=== PATIENT | female | born 1965 | race Caucasian/White ===

== ENCOUNTER 2024-07-16 16:49 | Emergency (ER) | payer MEDICAID, SELFPAY ==
[2024-07-16 16:50] VITALS: BMI 25.2
--- NOTE | 2024-07-16 16:54 | EKG_ITS ---
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
--- NOTE | 2024-07-16 17:11 | XR_ITS ---
Examination: CT brain head without contrast. 2-D sagittal coronal reconstructions Date and time of exam:July 16, 2024 1726 hrs. Indications: Patient fell today with injury to the head, head pain CTDI: vol (mGy):44.9 DLP: (mGycm):882 Technique: Multiple CT axial sections of the brain have been obtained, 5 mm slice thickness. Contrast has not been administered. 2-D sagittal, coronal reconstructions have been obtained Low dose protocols were performed. One or more of the following dose reduction techniques were used; automated exposure control, adjustment of the mA and/or KV according to patient size, use of iterative reconstruction technique. Findings: No significant ventricular enlargement. Intra-axial or extra-axial hemorrhage density is not seen. No mass effect or midline shift Basal cisterns are not remarkable. Fourth ventricle is midline. Cranial vault intact. Impression: Negative for acute hemorrhage, mass effect or midline shift
--- NOTE | 2024-07-16 17:11 | XR_ITS ---
Examination: CT cervical spine without contrast 2-D sagittal reconstructions 2-D coronal reconstructions 3-D reconstructions. Exam date and time:July 16, 2024 1726 hrs. Indications: Patient fell today with injury to the neck, neck pain CTDI:vol (mGy) 7.67 DLP: (mGycm) 164 Technique: Multiple 2 mm axial sections of the cervical spine have been obtained. The coronal and sagittal reconstructions have been obtained. 3-D reconstructions have been obtained. Low dose protocols were performed. One or more of the following dose reduction techniques were used; automated exposure control, adjustment of the mA and/or KV according to patient size, use of iterative reconstruction technique. Findings: Axial sections demonstrate intact base of the skull. C1 exhibit satisfactory relationship to the odontoid. No acute cervical vertebral body fracture seen. Alignment posterior spinous processes satisfactory. Impression: No acute cervical fracture.
--- NOTE | 2024-07-16 17:12 | PD.EDRME ---
Rapid Medical Screening Exam RME Arrival date/time: 07/16/24 16:49 58-year-old female who reports she has long COVID with generalized weakness complaints of head and neck pain status post fall today patient reports that she has had a total of 3 falls today Chief Complaint: Fall
[2024-07-16 17:59] LABS: Basophils % (Auto) 0 % (0-2.5); Eosinophils % (Auto) 0 % (0-10); Hematocrit 38.7 % (36.0-46.0); Hemoglobin 13.1 g/dL (12.0-16.0); Immature Granulocytes % (Auto) 1 % (0-0); Immature Granulocytes Auto 0.04 Thou/mm3 (0.00-0.00); Lymphocytes # (Auto) 2.4 Thou/mm3 (1.0-4.8); Lymphocytes % (Auto) 35 % (10-50); Mean Corpuscular HGB Conc 33.9 g/dl (31.0-37.0); Mean Corpuscular Hemoglobin 34.3 pg (25.0-35.0); Mean Corpuscular Volume 101 fL (80-100); Monocytes # (Auto) 0.5 Thou/mm3 (0.0-0.8); Monocytes % (Auto) 7 % (0-12); Neutrophils # (Auto) 3.9 Thou/mm3 (1.8-7.7); Neutrophils % (Auto) 57 % (37-80); Nucleated Red Blood Cell # 0.02 Thou/mm3 (0.00-0.00); Nucleated Red Blood Cell % 0 /100 WBC (0); Platelet Count 293 Thou/mm3 (140-440); RDW Standard Deviation 54.4 fL (36.4-46.3); Red Blood Count 3.82 Miln/mm3 (4.00-5.20); White Blood Count 6.9 Thou/mm3 (3.6-11.0)
[2024-07-16 18:29] LABS: Alanine Aminotransferase 34 U/L (10-49); Albumin, Serum 3.8 gm/dL (3.4-4.8); Albumin/Globulin Ratio 1.3 (1.2-2.2); Alkaline Phosphatase 236 U/L (46-116); Anion Gap 12 (7-16); Aspartate Amino Transferase 172 U/L (0-34); BUN/Creatinine Ratio 9 Ratio (12-20); Bilirubin,Total 0.5 mg/dL (0.3-1.2); Blood Urea Nitrogen 6 mg/dL (9-23); Calcium 9.1 mg/dL (8.3-10.6); Calcium (Corrected) 9.3 mg/dL (8.5-10.1); Carbon Dioxide 24.3 mMol/L (20.0-31.0); Chloride 102 mMol/L (98-107); Creatinine (Component) 0.7 mg/dL (0.6-1.3); Estimated Creatinine Clearance 74.3 mL/min (>60); Glucose 204 mg/dL (74-106); Osmolality,Calculated 279 (275-295); Potassium 3.2 mMol/L (3.4-5.1); Sodium 138 mMol/L (136-145); Total Protein 6.8 gm/dL (5.7-8.2); Troponin I < 0.020 ng/mL (0.0-0.045); eGFR > 60 See Note
[2024-07-16 20:20] VITALS: BP 102/65; PULSE 87; RESP 20; TEMP 36.8; O2SAT 97
--- NOTE | 2024-07-16 20:20 | PC.NURSE ---
PT CALLED BACK TO A ROOM AND NO ANSWER
--- NOTE | 2024-07-16 20:51 | PC.NURSE ---
PT CALLED BACK TO A ROOM AND NO ANSWER
--- NOTE | 2024-07-16 20:58 | PC.NURSE ---
PT CALLED BACK TO A ROOM AND NO ANSWER
== END 2024-07-16 23:52 | disposition left against medical advice (07) ==
LOC: SERX 17:50
PROVIDERS: Nurse Practitioner Primary Care; Emergency Provider Emergency Medicine; PCP Family Medicine
DX: R51.9 Headache, unspecified (principal); M54.2 Cervicalgia; R00.0 Tachycardia, unspecified; S09.90XA Unspecified injury of head, initial encounter; W19.XXXA Unspecified fall, initial encounter; Z53.29 Procedure and treatment not carried out because of patient's decision for other reasons
CPT/HCPCS: 36415; 70450; 72125; 80053; 84484; 85025; 93005; 99281

== ENCOUNTER 2024-09-30 13:33 | Inpatient (IN) | payer MEDICAID, SELFPAY ==
[2024-09-30] VITALS (10 sets, daily range): BP systolic 125–160; BP diastolic 77–109; PULSE 92–119; RESP 16–26; TEMP 36.6–36.9; O2SAT 93–98; BMI 24.7; BMI 26.2
--- NOTE | 2024-09-30 14:14 | XR_ITS ---
Examination: CT brain head without contrast. 2-D sagittal coronal reconstructions Date and time of exam:September 30, 2024 1451 hours INDICATIONS: Ground-level fall today after syncopal episode CTDI: vol (mGy):45.6 DLP: (mGycm):880 Technique: Multiple CT axial sections of the brain have been obtained, 5 mm slice thickness. Contrast has not been administered. 2-D sagittal, coronal reconstructions have been obtained Low dose protocols were performed. One or more of the following dose reduction techniques were used; automated exposure control, adjustment of the mA and/or KV according to patient size, use of iterative reconstruction technique. Findings: No significant ventricular enlargement. Intra-axial or extra-axial hemorrhage density is not seen. No mass effect or midline shift Basal cisterns are not remarkable. Fourth ventricle is midline. Cranial vault intact. Impression: Negative for acute hemorrhage, mass effect or midline shift
--- NOTE | 2024-09-30 14:15 | EKG_ITS ---
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1965 Requested By: Kevin Kimball Order Number: [id number] Reading MD: Kevin Kimball Measurements Intervals [place] Rate: 89 P: 62 RI: 144 QRS: 12 QRSD: 90 T: 220 QT: 395 QTc: 481 Interpretive Statements SINUS RHYTHM INDETERMINATE AXIS MODERATE T-WAVE ABNORMALITY, CONSIDER ANTEROLATERAL ISCHEMIA [-0.1+ mV T-WAVE IN V3-V6] MODERATE T-WAVE ABNORMALITY, CONSIDER INFERIOR ISCHEMIA [-0.1+ mV T-WAVE IN II/aVF] Compared to ECG 07/16/2024 17:13:21 Indeterminate axis now present T-wave abnormality now present Possible ischemia now present Sinus tachycardia no longer present Atrial abnormality no longer present Right ventricular hypertrophy no longer present /store/S0/[id number]/ecg/[id number].pdf
--- NOTE | 2024-09-30 14:40 | EDNOTE_ITS ---
ED General RME/HPI General Chief complaint: Syncope / Near Syncope Stated complaint: SYNCOPE Time Seen by Provider: 09/30/24 13:37 Arrival date/time: 09/30/24 13:33 RME / HPI RME / HPI narrative: Patient is a 59 years old female with no past medical history presented to the ED due to ground level fall and generalized weakness. She reports that she first developed weakness in her legs approximately 5 weeks ago. 4 weeks ago her leg weakness worsened and she started feeling weakness in her arms too. She also reports decreased sensation over BLE. As a result of her weakness she developed several ground level falls, including today when she fell and injured her face. Upon further questions she reported she suddenly blacks out and remember only moment when she is already on the floor. She reports ongoing diarrhea which started approximately at the same time. Upon further questions she says it is 1 bowel movement a day but she cannot sense it and sometimes has stool incontinence, prompting her to use adult diapers. She denies chest pain, SOB, fever, chills, nausea, vomiting, dizziness, URI or GI infections recently or around the time when her symptoms occurred. She also reports she eats 2 times a week for the last several years because she lost interest to food and mostly drinks liquids. She is active tobacco smoker, drinks alcohol socially, 1-2 times a week 1 drink each time. She uses THC candies every 2-3 months. Denies other substance use. Patient also reported multiple abdominal surgeries for cholecystectomy and due to complications most of her stomach was removed and nerve stimulator was placed to her spine 10 years ago. Related Data Allergies Allergy/AdvReac Type Severity Reaction Status Date / Time Sulfa (Sulfonamide Allergy Verified 07/16/24 16:53 Antibiotics) Review of Systems Review of Systems Systems Reviewed: All systems reviewed, normal except as documented ED Exam Narrative Physical exam: Gen: Well-developed and well-nourished elderly female. HEENT: NCAT, PERRLA, EOMI, MMM, anicteric conjunctivae. CVS: normal S1 and S2. RRR. No M/R/G. Resp: CTA B/L. No rhonchi, rales, crackles or wheezing. Abd: soft, tender lower abdomen, non-distended. BS+ in all 4 quadrants. MSK: Good ROM in BUE & BLE. No edema or rash. Neuro: CN II-XII grossly intact. Strength 5/5 in BUE & BLE. Alert and oriented x3. Psych: appropriate mood and affect. Course Quality Measures none Orders Category Date Time Status COVID-19 Screening Questionnaire NOW Care 09/30/24 16:[address] Screening NOW Care 09/30/24 16:12 Active Decision to Admit X1 Care 09/30/24 16:42 Completed EKG (ED ONLY) *Do not use* NOW Care 09/30/24 14:15 Completed IV [Insert IV] NOW Care 09/30/24 14:14 Active Consult to Neurology / Tele-Neurology Stat Cons 09/30/24 17:[address] abdomen pelvis w con Stat Exams 09/30/24 16:[address] cervical spine wo con Stat Exams 09/30/24 16:[address] head/brain wo con Stat Exams 09/30/24 14:[address] lumbar spine wo con Stat Exams 09/30/24 16:[address] thoracic spine wo con Stat Exams 09/30/24 16:56 Completed EKG (ED Only) Stat Exams 09/30/24 14:15 Draft CBC Stat Lab 09/30/24 14:39 Completed CMP [Comprehensive Metabolic Panel] Stat Lab 09/30/24 14:39 Completed Drug Screen,Urine Stat Lab 09/30/24 16:21 Ordered Folate Stat Lab 09/30/24 14:39 Completed Magnesium Stat Lab 09/30/24 14:39 Completed Phosphorous Stat Lab 09/30/24 14:39 Completed Troponin I Stat Lab 09/30/24 14:39 Completed Vitamin B12 Stat Lab 09/30/24 14:39 Completed Aspirin Med 09/30/24 15:25 Discontinued 325 mg PO X1 ONE Potassium Chloride [K-Dur] Med 09/30/24 15:28 Discontinued 40 meq PO X1 ONE Vital Signs Vital signs: Vital Signs Temperature 98.3 F 09/30/24 13:47 Pulse Rate 92 09/30/24 13:47 Respiratory Rate 16 09/30/24 13:47 Blood Pressure 127/84 09/30/24 13:47 Pulse Oximetry (%) 97 09/30/24 13:47 Oxygen Delivery Method Room Air 09/30/24 13:47 [facility] Patient data External records reviewed:: None Clinical information provided by:: patient Social determinants that could affect healthcare access:: none Patient has the following chronic illnesses:: none How is presenting disease/condition affected by chronic disease/condition?: no chronic disease Evaluation data The following diagnostics were reviewed and interpreted by me:: lab results, radiology exam(s) and EKG tracing(s) Lab and/or radiology exams considered but not ordered:: Brain MRI Interpretation Summary: EKG showed ST segment changes, suspicious for ischemia Medications Medications considered but not ordered:: none Medication administrations:: Medication Administration History Discontinued Medications Aspirin (Aspirin 325 Mg Tablet) 325 mg PO X1 ONE Stop: 09/30/24 15:26 Last Admin: 09/30/24 17:30 Dose: 325 mg Documented By: CARLOTTA Potassium Chloride (Potassium Chloride 20 Meq Tabcr) 40 meq PO X1 ONE Stop: 09/30/24 15:29 Last Admin: 09/30/24 16:45 Dose: Not Given Documented By: CARLOTTA Non-Admin Reason: Cancelled by Provider Aspirin 325 mg x1. Consultations Consultation(s) initiated? (list below): Yes Consultation #1 (Physician, Specialty, Details): Dr. Kaufman, neurology, syncope work up. Diagnosis Differential Diagnosis ED Complaint MDM: Syncope, ACS, seizures Most likely diagnosis given after review of the tests above:: Syncope Admission Indicated Admission indicated?: indicated Explain why admission is indicated or not indicated:: Needs extensive work up for multiple syncope episodes. Admission Request Was there a request for admission?: Yes Admission Attestation Admission request attestation: Discussed case with Dr. Nieves from Hospitalist service regarding admission. Discussed patients ED course, exam findings, labs, and radiology results. The Hospitalist agrees to accept the patient for admission. Disposition Plan Disposition Plan: Admit Medical Decision Making MDM Narrative MDM Narrative: Patient is a poor historian. She reports ascending weakness, multiple syncope episodes, poor PO intake, abdominal pain, diarrhea. Her EKG showed ST segment changes suggestive of possible ischemia. Neurology was consulted and recommended admission due to complicated medical history and for EEG. Patient sustained multiple ground level falls and it is unsafe to discharge her without proper work up. Differential Diagnosis Differential Diagnosis: Syncope, ACS, seizures Lab Data 09/30/24 14:39 09/30/24 14:39 Labs: Lab Results 09/30/24 Range/Units 14:39 WBC 6.2 (3.6-11.0) Thou/mm3 RBC 3.66 L (4.00-5.20) Miln/mm3 Hgb 12.5 (12.0-16.0) g/dL Hct 37.0 (36.0-46.0) % MCV 101 H (80-100) fL MCH 34.2 (25.0-35.0) pg MCHC 33.8 (31.0-37.0) g/dl RDW Std Deviation 62.2 H (36.4-46.3) fL Plt Count 214 (140-440) Thou/mm3 Neut % (Auto) 55 (37-80) % Lymph % (Auto) 38 (10-50) % Rogers % (Auto) 6 (0-12) % Eos % (Auto) 0 (0-10) % Baso % (Auto) 1 (0-2.5) % Neut # (Auto) 3.4 (1.8-7.7) Thou/mm3 Lymph # (Auto) 2.3 (1.0-4.8) Thou/mm3 Rogers # (Auto) 0.4 (0.0-0.8) Thou/mm3 Eos # (Auto) 0.0 (0.0-0.5) Thou/mm3 Baso # (Auto) 0.0 (0.0-0.2) Thou/mm3 Immature Gran # (Auto) 0.02 H (0.00-0.00) Thou/mm3 Absolute Nucleated RBC 0.00 (0.00-0.00) Thou/mm3 Immature Gran % 0 (0-0) % Nucleated RBC % 0 (0) /100 WBC Sodium 142 (136-145) mMol/L Potassium 3.9 (3.4-5.1) mMol/L Chloride 106 (98-107) mMol/L Carbon Dioxide 25.0 (20.0-31.0) mMol/L Anion Gap 11 (7-16) BUN 6 L (9-23) mg/dL Creatinine 0.6 (0.6-1.3) mg/dL Estim Creat Clear Calc 84.8 (>60) mL/min eGFR > 60 (60 - ) See Note BUN/Creatinine Ratio 10 L (12-20) Ratio Glucose 137 H (74-106) mg/dL Calculated Osmolality 282 (275-295) Calcium 9.1 (8.3-10.6) mg/dL Corrected Calcium 9.4 (8.5-10.1) mg/dL Phosphorus 3.4 (2.4-5.1) mg/dL Magnesium 1.6 (1.6-2.6) mg/dL Total Bilirubin 0.6 (0.3-1.2) mg/dL AST 204 H (0-34) U/L ALT 21 (10-49) U/L Alkaline Phosphatase 171 H (46-116) U/L Troponin I < 0.020 (0.0-0.045) ng/mL Total Protein 6.3 (5.7-8.2) gm/dL Albumin 3.6 (3.4-4.8) gm/dL Globulin 2.7 (2.3-3.5) gm/dL Albumin/Globulin Ratio 1.3 (1.2-2.2) Vitamin B12 354 (211-911) pg/mL Folate 2.57 L (>5.38) ng/mL Discharge Plan Plan Patient Disposition: Admit Acute Care w/in Hospital Problem List Clinical Impression: Syncope Patient/Caregiver Discharge Instructions Print Language: Occitan Stand Alone Forms: [facility]ella Award Info., Patient Portal Info Letter
[2024-09-30 15:06] LABS: Basophils % (Auto) 1 % (0-2.5); Eosinophils % (Auto) 0 % (0-10); Hemoglobin 12.5 g/dL (12.0-16.0); Immature Granulocytes % (Auto) 0 % (0-0); Immature Granulocytes Auto 0.02 Thou/mm3 (0.00-0.00); Lymphocytes # (Auto) 2.3 Thou/mm3 (1.0-4.8); Lymphocytes % (Auto) 38 % (10-50); Mean Corpuscular HGB Conc 33.8 g/dl (31.0-37.0); Mean Corpuscular Hemoglobin 34.2 pg (25.0-35.0); Mean Corpuscular Volume 101 fL (80-100); Monocytes # (Auto) 0.4 Thou/mm3 (0.0-0.8); Monocytes % (Auto) 6 % (0-12); Neutrophils # (Auto) 3.4 Thou/mm3 (1.8-7.7); Neutrophils % (Auto) 55 % (37-80); Nucleated Red Blood Cell % 0 /100 WBC (0); Platelet Count 214 Thou/mm3 (140-440); RDW Standard Deviation 62.2 fL (36.4-46.3); Red Blood Count 3.66 Miln/mm3 (4.00-5.20); White Blood Count 6.2 Thou/mm3 (3.6-11.0)
[2024-09-30 15:30] LABS: Alanine Aminotransferase 21 U/L (10-49); Albumin, Serum 3.6 gm/dL (3.4-4.8); Albumin/Globulin Ratio 1.3 (1.2-2.2); Alkaline Phosphatase 171 U/L (46-116); Anion Gap 11 (7-16); Aspartate Amino Transferase 204 U/L (0-34); BUN/Creatinine Ratio 10 Ratio (12-20); Bilirubin,Total 0.6 mg/dL (0.3-1.2); Blood Urea Nitrogen 6 mg/dL (9-23); Calcium 9.1 mg/dL (8.3-10.6); Calcium (Corrected) 9.4 mg/dL (8.5-10.1); Chloride 106 mMol/L (98-107); Creatinine (Component) 0.6 mg/dL (0.6-1.3); Estimated Creatinine Clearance 84.8 mL/min (>60); Globulin 2.7 gm/dL (2.3-3.5); Glucose 137 mg/dL (74-106); Magnesium 1.6 mg/dL (1.6-2.6); Osmolality,Calculated 282 (275-295); Phosphorous 3.4 mg/dL (2.4-5.1); Potassium 3.9 mMol/L (3.4-5.1); Sodium 142 mMol/L (136-145); Total Protein 6.3 gm/dL (5.7-8.2); Troponin I < 0.020 ng/mL (0.0-0.045); eGFR > 60 See Note
--- NOTE | 2024-09-30 16:12 | XR_ITS ---
Examination: CT abdomen with intravenous contrast CT pelvis with intravenous contrast 2-D coronal reconstructions 2-D sagittal reconstructions Date and time of exam:September 30, 2024 1639 hours INDICATIONS: Generalized abdominal pain and diarrhea today. CTDI: vol (mGy) 8.01 DLP: (mGycm) 409 Technique: Multiple axial sections of the abdomen and pelvis have been obtained. 64 slice high-resolution scanner used. 3 mm axial sections have been obtained, post intravenous injection 60 cc [id number] 2-D sagittal, coronal reconstructions obtained. Low dose protocols were performed. One or more of the following dose reduction techniques were used; automated exposure control, adjustment of the mA and/or KV according to patient size, use of iterative reconstruction technique. Findings: Severe diffuse fatty infiltration throughout the liver Left lobe hyperdense 29 mm liver lesion Spleen not enlarged Absent gallbladder No pancreatic mass or extrahepatic biliary tract dilatation Aorta normal size Anterior abdominal wall hernia mesh No hydronephrosis Aorta normal size, no free blood in the abdomen or pelvis No bowel obstruction Colonic diverticulosis, no diverticulitis No pelvic mass Urinary bladder intact Moderate osteopenia IMPRESSION: 29 mm left lobe liver lesion, recommend elective MRI liver follow-up pre and postcontrast to assess this lesion
--- NOTE | 2024-09-30 16:39 | XR_ITS ---
Examination: CT cervical spine without contrast 2-D sagittal reconstructions 2-D coronal reconstructions 3-D reconstructions. Exam date and time:September 30, 2024 1645 hours INDICATIONS: Ground-level fall today with injury of the neck, neck pain CTDI:vol (mGy) 13.2 DLP: (mGycm) 217 Technique: Multiple 2 mm axial sections of the cervical spine have been obtained. The coronal and sagittal reconstructions have been obtained. 3-D reconstructions have been obtained. Low dose protocols were performed. One or more of the following dose reduction techniques were used; automated exposure control, adjustment of the mA and/or KV according to patient size, use of iterative reconstruction technique. Findings: Axial sections demonstrate intact base of the skull. Advanced disc narrowing C5-C6 Acute sphenoid sinusitis C1 exhibit satisfactory relationship to the odontoid. No acute cervical vertebral body fracture seen. Alignment posterior spinous processes satisfactory. Impression: No acute cervical fracture.
--- NOTE | 2024-09-30 16:56 | XR_ITS ---
Examination: Thoracic spine 3 views TECHNIQUE: AP lateral coned lateral upper dorsal spine 3 views Exam date and time: September 30, 2024 1722 hours INDICATIONS: Patient fell today with injury to the upper back, upper back pain FINDINGS: Moderate osteopenia Posterior epidural pain lead No thoracic vertebral body compression fracture Mild to moderate diffuse thoracic disc narrowing Mild thoracic spondylosis Thoracic pedicles and laminae appear intact No pneumothorax or hemothorax Soft tissue settings demonstrate no focal thoracic disc protrusion IMPRESSION: No thoracic fracture
--- NOTE | 2024-09-30 16:56 | XR_ITS ---
Examination: CT lumbar spine, without contrast. 2-D sagittal reconstructions. 2-D coronal reconstructions. 3-D reconstructions. Date and time of exam:September 30, 2024 1722 hours INDICATIONS: Patient fell today with injury to the lower back, lower back pain CTDI: vol (mGy):17.3 DLP: (mGycm):524 Technique: Multiple 1.25 mm axial sections of the lumbar spine without intravenous contrast have been obtained. 2-D sagittal and coronal reconstructions have been obtained. 3-D reconstructions have been obtained. Low dose protocols were performed. One or more of the following dose reduction techniques were used; automated exposure control, adjustment of the mA and/or KV according to patient size, use of iterative reconstruction technique. Findings: Prominent osteopenia Moderate disc narrowing L5-S1 No lumbar vertebral body compression fracture Epidural probable pain lead entering posteriorly L1-L2 level Lumbar pedicles, laminae, transverse and posterior spinous processes intact L5-S1 4 mm central lumbar disc bulge displacing both S1 nerve roots L4-L5 2 mm central lumbar disc bulge L3-L4 no disc protrusion L2-L3 no disc protrusion L1-2 no disc protrusion IMPRESSION: No acute lumbar fracture Moderate disc narrowing L5-S1 L5-S1 4 mm central lumbar disc bulge displacing right and left S1 nerve roots
--- NOTE | 2024-09-30 16:58 | PD.RESEVENT ---
Documentation for date of: 09/30/24 Event Note Event Note: Received a call from ED regarding admission. Patient with no PMH presents after a syncopal episode/GLF, with generalized weakness that started in her legs and has ascended to include bilateral upper extremities. Weakness started approximately 4 to 5 weeks ago. Symptoms are associated with bowel incontinence. Discussed with the ED to obtain CT lumbar spine to rule out spinal cord pathology as cause of symptoms, and if CT is negative, we will gladly accept admission. Patient care discussed with my attending Dr. Elizondo. Parker Nieves MD PGY-3
[2024-09-30] MEDS: Aspirin 325 MG TABLET PO (17:30)
[2024-09-30 17:36] LABS: Folate 2.57 ng/mL (>5.38); Vitamin B12 354 pg/mL (211-911)
[2024-09-30 18:48] LABS: Amphetamine/Methamp Scrn,U Negative (Negative); Barbiturate Screen,Urine Negative (Negative); Benzodiazepines Screen,Urine Negative (Negative); Benzoylecgonine Screen, Ur Negative (Negative); Fentanyl Screen,Urine Negative (Negative); Opiate Screen,Urine Negative (Negative); THC Screen,Urine Negative (Negative)
--- NOTE | 2024-09-30 21:18 | XR_ITS ---
Examination: AP lateral chest 2 views Technique: Sitting AP lateral chest 2 views Exam date and time: September 30, 2024 10:17 PM Indications: Clinical diagnosis thymoma Findings: Normal heart size No mediastinal lymphadenopathy. No pneumonia or pulmonary edema Moderate elevation right hemidiaphragm The osseous structures are intact Impression: No active disease
--- NOTE | 2024-09-30 21:33 | PD.RESHP ---
Documentation for date of: 09/30/24 HPI History of Present Illness Chief complaint: Generalized weakness and recurrent fall for the past 3 months History of present illness: HPI: A 59-year-old female patient with with past medical history reportedly of chronic back pain status post pain device implant, complicated cholecystectomy followed by ex laparotomy and bowel resection, presented to the emergency department after she developed generalized weakness and recurrent falls for the past 3 months. Patient reported that in May 2024 she had a COVID infection in which she recovered completely however by the end of June and the beginning of July she started to experience weakness started in her feet that led to her stumbling and had multiple episodes of falls. She reported that the symptoms continue to worsen over time and experienced 7 episodes of falls. Last 1 was yesterday when she fell on her face which led to bleeding and contusion. On further questioning she reported also associated dizziness in which in which she went to visit her PCP who prescribed her meclizine however it did not help. She patient also reported that she has multiple episodes of diarrhea and loss of bowel control but no loss of urine control. Her symptom associated with lower extremity tingling and numbness usually at the nighttime. She also reported that she has some episodes of nausea and vomiting. Patient denied use of any new medications, denied any similar symptoms among family members. In review of other system patient reported that she noticed that recently she get tired easily. She reported that whenever she take a shower she would feel extremely tired and short of breath. She denied any lower limb swelling and denied any orthopnea or paroxysmal nocturnal dyspnea, however she reported that she has been having some episodes of palpitation, hot flashes and chills. Denied any loss or gain of weight. ED course: In the ED patient heart rate was 92, CBC was within normal limits, CMP was only significant for AST of 204, ALT was within normal limit, alk phos of 171, folate was 2.57, and normal vitamin B12 of 354. Brain CT scan and cervical CT scan was within normal limit, lumbar CT scan showed bulging disc causing compression of the root of S1. Abdominal/pelvic CT scan showed significant fatty infiltrate of the liver with small lesion approximately 28 mm in size. No previous imaging for comparison. EKG did not show any arrhythmias or ischemic changes. PMH: As above Social hx: Alcohol: Socially Tobacco: Denied Illicit drugs: Denied Allergies: Sulfa drugs Review of Systems Review of Systems Systems Reviewed: All systems reviewed, normal except as documented Exam Vital Signs Temp Pulse Resp BP Pulse Ox O2 Del Method 97.8 F 109 H 18 144/77 H 93 L Room Air 09/30/24 19:18 09/30/24 19:18 09/30/24 19:18 09/30/24 20:01 09/30/24 20:01 09/30/24 19:18 Narrative Exam GEN: AOx3, able to speak full sentences HEENT: NC/AC, PERRLA, oral mucosa moist, neck supple CVS: RRR, S1-S2 present, no murmurs appreciated RESP: CTAB GI: soft,non distended, non tender, NBS MSK: able to move all 4 limbs, no lower extremity edema SKIN: warm and dry BELT OPERATOR: CN II-XII, no nystagmus, nose to finger test normal, generalized weakness however patient able to move against resistance, mild hyporeflexia in the right lower extremity, however normal on the left. Results: Labs 09/30/24 14:39 09/30/24 14:39 Labs: Short CBC 09/30/24 Range/Units 14:39 WBC 6.2 (3.6-11.0) Thou/mm3 Hgb 12.5 (12.0-16.0) g/dL Hct 37.0 (36.0-46.0) % Plt Count 214 (140-440) Thou/mm3 BMP 09/30/24 14:39 Sodium 142 Potassium 3.9 Chloride 106 Carbon Dioxide 25.0 BUN 6 L Creatinine 0.6 Glucose 137 H Calcium 9.1 Cardiac Enzymes 09/30/24 Range/Units 14:39 Troponin I < 0.020 (0.0-0.045) ng/mL Liver Function 09/30/24 Range/Units 14:39 Total Bilirubin 0.6 (0.3-1.2) mg/dL AST 204 H (0-34) U/L ALT 21 (10-49) U/L Alkaline Phosphatase 171 H (46-116) U/L Albumin 3.6 (3.4-4.8) gm/dL Quality Measures Quality Measures none Medications Home Medications and Allergies Allergies Allergy/AdvReac Type Severity Reaction Status Date / Time Sulfa (Sulfonamide Allergy Verified 07/16/24 16:53 Antibiotics) Visit Medications Acetaminophen (Acetaminophen 325 Mg Tablet) 650 mg PO Q6H PRN PRN Reason: Fever >101.5 Stop: 10/30/24 21:09 Hydrocodone Bitart/Acetaminophen (Hydrocodone/Apap 5/325 Tablet) 1 tab PO Q4HR PRN PRN Reason: PAIN SCALE 4-6 (Moderate Stop: 10/05/24 21:09 Ceftriaxone Sodium 1,000 mg/ (Sodium Chloride) 50 mls @ 100 mls/hr IV QDAY FEDERICO Stop: 10/07/24 21:28 Ceftriaxone Sodium 1,000 mg/ (Sodium Chloride) 50 mls @ 100 mls/hr IV X1 ONE Stop: 09/30/24 22:14 Ondansetron HCl (Ondansetron Inj 2 Mg/Ml Inj 2 Ml) 4 mg IV Q6H PRN; Protocol PRN Reason: NAUSEA OR VOMITING Stop: 10/30/24 21:09 Pantoprazole Sodium (Pantoprazole 40 Mg Tablet) 40 mg PO QDAY FEDERICO Stop: 10/31/24 08:59 Discontinued Medications Aspirin (Aspirin 325 Mg Tablet) 325 mg PO X1 ONE Stop: 09/30/24 15:26 Last Admin: 09/30/24 17:30 Dose: 325 mg Potassium Chloride (Potassium Chloride 20 Meq Tabcr) 40 meq PO X1 ONE Stop: 09/30/24 15:29 Last Admin: 09/30/24 16:45 Dose: Not Given Assessment & Plan Plan Summary: A 59-year-old female patient with with past medical history reportedly of chronic back pain status post pain device implant, complicated cholecystectomy followed by ex laparotomy and bowel resection, presented to the emergency department after she developed generalized weakness and recurrent falls for the past 3 months. Patient was admitted for generalized weakness workup. Assessment and plan #Generalized progressive weakness #Syncope #Possible dysautonomia #Folic acid deficiency DDx Elisabeth barre syndrome, spinal cord compression, less likely syphilis, viral infection, autoimmune disorder, paraneoplastic syndrome Patient has history of COVID infection in May, 1 month after that patient started to develop the symptoms. Denied any previous GI infections Patient reported that her symptoms associated with dizziness syncopal episodes, diarrhea, palpitation which may indicate that the patient has autonomic dysfunction CT scan of the abdomen and pelvis showed liver lesion 28 mm, associated with elevated AST and alkaline phosphatase. Which also can be reason for paraneoplastic syndrome. Noticed to have low folate acid of 2.5, vitamin B12 within low normal level. Plan ? Admit patient to telemetry ? Neurochecks every 4 hours ? Consult neurologist Dr Kaufman, recommendations appreciated ? Consider ordering abdominal MRI to evaluate liver lesion ? Sent for hepatitis panel, HIV, syphilis, cocci ? Sent for autoimmune screening MARY, AMA, antimitochondrial, follow-up on the results ? Multivitamins ? Creatinine kinase ? Physical therapy evaluation, and speech evaluation ? Orthostatic vital signs ? Consider nerve conduction study if needed ? Echo ? Follow-up with the patient to bring the card for the pain device that was implanted on her back to see if it is compatible for MRI. ? TSH #Multiple trauma secondary to falls Patient has multiple falls over she denied any limitation of movement, CT of the cervical spine, lumbar spine, thoracic spine, all within normal limits, CT brain was within normal limits with no signs of bleeding. Plan ? Fall precautions ? Pain management as per protocol #History of GERD Plan ? Protonix 40 mg p.o. daily Hospital Maintenance: FEN: Regular diet DVT ppx: SCD GI ppx: Protonix IV lines: PIV Patel: None Code status: Full code Dispo: Telemetry - Patient's plan and care discussed with my attending, Dr. Mayra Neff MD Internal Medicine PGY-2 Attending Provider Attestation/Addendum I attest that I was physically present for the evaluation, physical examination, lab and imaging review of the patient with the residents. I discussed the case with the residents and agree with the findings and plans of care as documented above. Patient is a 59 years old female with past medical history of chronic back pain and spinal device, complicated cholecystectomy followed by ex laparotomy and bowel resection who presented to the ED with complaint of generalized weakness and frequent falls. Patient has been having frequent falls for last 4 weeks. She said her weakness started after she had an episode of COVID infection in May 2024. Her last fall yesterday resulted on falling on her face followed by bleeding and contusion of her face. She states that she has been having dizziness and trouble with balance leading to her falls. Patient also had multiple episodes of loose stool and bowel incontinence but denies any urine incontinence. She also complains of bilateral lower extremity numbness, mostly during nighttime. In the ED, her vitals are within normal limits. Lab results showed AST of 204, ALP 171. CT cervical spine and thoracic spine did not show any fractures. CT lumbar spine shows moderate disc narrowing L5-S1, 4 mm central lumbar disc bulge displacing right and left S1 nerve root . On exam, patient is alert and oriented, able to answer questions and follow commands appropriately. Noted to have generalized weakness but strength is symmetrical and was able to move all her limbs, unable to elicit right knee jerk but patient was tasia her leg muscles, normal knee jerk and right leg. We will admit the patient for management of syncope with frequent falls, generalized weakness. We will obtain echocardiography, TSH, orthostatic vitals. Patient is stated that she had MRI previously and has a card stating it is compatible for MRI, we will follow-up on it and obtain MRI lumbar spine later on. Patient also noted to have liver lesion on her previous CT scan. She has been having decreased oral intake as well. Patient takes trazodone. Differential diagnosis remains broad for her generalized weakness and syncope including decreased oral intake, medication, orthostatic hypotension, paraneoplastic syndrome, spinal cord compression. We will obtain neurology consult, speech therapy, physical therapy, TSH level. Will Nunez MD
[2024-09-30] MEDS: cefTRIAXone 1,000 MG in SODIUM CHLORIDE 0.9% (Popper) 50 ML 100 MG IV (21:47)
[2024-09-30 22:30] LABS: Glucose Estimated Average 126 mg/dL (80-131)
[2024-09-30 22:51] LABS: HIV (1&2) Antibody Rapid Non-Reactive
--- NOTE | 2024-09-30 22:58 | PC.LAC ---
REPORT CALLED TO PAMELA HERZOG. ALL QUESTIONS ASKED AND ANSWERED. PATIENT TRANSFERRED TO FLOOR WITH STAFF. PATIENT REMAINS ON ROOM AIR. NO DISTRESS NOTED AT TRANSFER.
[2024-09-30 23:12] LABS: Syphilis Nonreactive (Nonreactive)
[2024-09-30 23:21] LABS: Creatine Kinase 34 U/L (34-171)
[2024-09-30 23:35] LABS: Hepatitis A Antibody IgM Non Reactive (Non React); Hepatitis B Core Antibody IgM Non Reactive (Non React); Hepatitis B Surface Antigen Non Reactive (Non React); Hepatitis C Antibody Non Reactive (Non React)
[2024-10-01] VITALS (9 sets, daily range): BP systolic 139–168; BP diastolic 78–99; PULSE 81–125; RESP 15–98; TEMP 36.2–36.7; O2SAT 96–97; BMI 26.4
--- NOTE | 2024-10-01 00:01 | XR_ITS ---
Examination: Bilateral hips, AP pelvis, 5 views Technique: AP, lateral views both hips, AP pelvis, 5 views Exam date and time: October 01, 2024 0051 hrs. Indications: Multiple falls today with injury to both hips, bilateral Date Findings: No acute right or left hip fracture Contrast in the bladder Bones of the pelvis intact Moderate narrowing hip joints Impression: No acute hip or pelvic fracture
[2024-10-01] MEDS: guaiFENesin/DM 10 ML UDC PO (00:47)
[2024-10-01 05:17] LABS: Basophils % (Auto) 1 % (0-2.5); Eosinophils % (Auto) 1 % (0-10); Hematocrit 33.6 % (36.0-46.0); Hemoglobin 11.5 g/dL (12.0-16.0); Immature Granulocytes % (Auto) 1 % (0-0); Immature Granulocytes Auto 0.03 Thou/mm3 (0.00-0.00); Lymphocytes # (Auto) 2.2 Thou/mm3 (1.0-4.8); Lymphocytes % (Auto) 36 % (10-50); Mean Corpuscular HGB Conc 34.2 g/dl (31.0-37.0); Mean Corpuscular Hemoglobin 34.1 pg (25.0-35.0); Mean Corpuscular Volume 100 fL (80-100); Monocytes # (Auto) 0.6 Thou/mm3 (0.0-0.8); Monocytes % (Auto) 9 % (0-12); Neutrophils # (Auto) 3.3 Thou/mm3 (1.8-7.7); Neutrophils % (Auto) 54 % (37-80); Nucleated Red Blood Cell % 0 /100 WBC (0); Platelet Count 202 Thou/mm3 (140-440); RDW Standard Deviation 60.5 fL (36.4-46.3); Red Blood Count 3.37 Miln/mm3 (4.00-5.20); White Blood Count 6.1 Thou/mm3 (3.6-11.0)
[2024-10-01 05:43] LABS: Partial Thromboplastin Time 22.7 Seconds (22.0-36.0); Prothrombin Time 11.4 Seconds (9.0-12.2)
[2024-10-01 06:12] LABS: Alanine Aminotransferase 38 U/L (10-49); Albumin, Serum 3.4 gm/dL (3.4-4.8); Albumin/Globulin Ratio 1.3 (1.2-2.2); Alkaline Phosphatase 163 U/L (46-116); Anion Gap 7 (7-16); Aspartate Amino Transferase 174 U/L (0-34); BUN/Creatinine Ratio 18 Ratio (12-20); Bilirubin,Total 1.7 mg/dL (0.3-1.2); Blood Urea Nitrogen 9 mg/dL (9-23); Calcium 9.2 mg/dL (8.3-10.6); Calcium (Corrected) 9.7 mg/dL (8.5-10.1); Carbon Dioxide 28.8 mMol/L (20.0-31.0); Chloride 103 mMol/L (98-107); Creatinine (Component) 0.5 mg/dL (0.6-1.3); Estimated Creatinine Clearance 104.5 mL/min (>60); Globulin 2.6 gm/dL (2.3-3.5); Glucose 114 mg/dL (74-106); Magnesium 1.6 mg/dL (1.6-2.6); Osmolality,Calculated 277 (275-295); Phosphorous 3.8 mg/dL (2.4-5.1); Potassium 3.8 mMol/L (3.4-5.1); Sodium 139 mMol/L (136-145); eGFR > 60 See Note
--- NOTE | 2024-10-01 07:47 | PC.NURSE ---
Notified Dr. Fall of patients inverted Twave showng on tele box.
[2024-10-01] MEDS: PANTOPRAZOLE 40 MG TABLET PO (08:30)
--- NOTE | 2024-10-01 08:31 | XR_ITS ---
Examination: Abdomen sonogram, Limited Date and time of exam: October 01, 2024 1136 hours INDICATIONS: Elevated bilirubin on laboratory examination this week Technique: Real-time mosley scale transabdominal sonographic images of the upper abdomen obtained. Findings: Absent gallbladder Common bile duct 0.4 cm Pancreatic head 3.4 cm Liver 16.7 cm fatty infiltration mildly irregular contour Normal hepatopedal portal venous flow Patent IVC IMPRESSION: Absent gallbladder Mild hepatomegaly fatty infiltration suspect primary hepatocellular disease
[2024-10-01] MEDS: Magnesium Sulfate 4 GM Ivpb 4 GM/50 ML BAG IV (10:16)
--- NOTE | 2024-10-01 10:17 | PC.SS ---
Patient Jade Reynoso is a 59 Year old female admitted for Weakness, Multiple Falls. SS met with patient at bedside to discuss discharge plan. Patient reports she lives at home with her , López Reynoso who she identifies as her surrogate decision maker [phone]. Patient report she utilizes a Rollator walker and wheelchair to assist with ambulation. Choice of pharmacy is [facility]. PCP is Darryl Hernandez. At time of discharge the patient's wish is to return back home. will provide transportation. Next of kin, López Reynoso Discharge plan, Home
--- NOTE | 2024-10-01 11:11 | PC.SS ---
SS was contacted by Maria A in PT she informed SS that patient would benefit from SNF, patient agreeable. SS submitted SNF referral through [facility] and also completed [facility].
--- NOTE | 2024-10-01 11:42 | ESPR_ITS ---
<Statement entered by Oliverio Lynch MD - 10/01/24 15:24> Patient was seen and examined at the bedside. Patient reported that her symptoms but not worsening. Patient was still able to move her extremities. Neurology recommended that evaluate the patient's vagal stimulator for MRI compatibility so that we can perform the investigation. Rocephin will be continued for now. Will follow-up on hep panel cocci IgM and folate RBC. Hemoglobin remained stable. T. bili is elevated at 1.7. Ultrasound abdomen limited to evaluate for gallbladder pathology. All labs and orders were reviewed. I saw and examined the patient, and I agree with current management stated by Dr Elaina MD,PGY1. Plan of care was discussed with the attending physician and resident physician. Disclaimer: Despite multiple revisions, due to the dictation software being used, the document bellow may not be free of grammatical errors including phonetic/typographic errors. However, this does not deter from our commitment to providing health care in the patient's best interest in mind. Dr. Syed MD, PGY 2 Documentation for date of: 10/01/24 Subjective Subjective Interval history: Jade Reynoso is a 59-year-old female with a past medical history of chronic back pain, complicated cholecystectomy followed by ex laparotomy and bowel resection status post placement of nerve stimulator approximately 10 years ago who presented on 09/30 for generalized weakness and recurrent falls for 3 months. Of note, in May/June she had COVID that resolved at end of June. Beginning of late July, she started to experience weakness in her lower extremities that led to multiple ground-level falls. At times, she does not recall these events. Also endorses multiple episodes of diarrhea with loss of bowel control, but not urine control. In ED, vitals normal and labs significant for AST 204, ALT wnl, ALP 171, folate low at 2.57, and normal B12 of 354. Imaging revealed moderate disc narrowing at L5-S1 and 4 mm central lumbar disc bulge displacing L and R nerve roots. Admitted for further work- up/management of syncope and imaging findings. 10/01: Seen and examined at bedside. No acute overnight events reported. No fever, chills, N/V, SOB, CP. In-house neurology consulted, pending recommendations. Given that patient has device placed, pending infomration regarding device to see if it is MRI compatible for further work-up of imaging findings in ED. Orthostatic vitals negative and echo showed EF 60-65%, stage 1 diastolic dysfunction. Exam Vital Signs Temp Pulse Resp BP Pulse Ox O2 Del Method 97.9 F 99 17 148/88 H 97 Room Air 10/01/24 07:40 10/01/24 07:40 10/01/24 07:40 10/01/24 07:40 10/01/24 07:40 10/01/24 07:40 Narrative Exam General: AOx3, no acute distress, able to speak full sentences HEENT: NC/AT, mucous membranes moist, bilateral sclera anicteric Cardiovascular: regular rate and rhythm, S1/S2 present, no murmurs appreciated Pulmonary: clear to auscultation bilaterally, no rales/rhonchi/wheezes Abdominal: soft, non-tender, non-distended, no rebound/guarding, normal bowel sounds present Musculoskeletal: normal ROM, no peripheral edema Skin: warm and dry, intact, no rashes Neuro: CN II-XII intact, strength 4/5 in BLE, strength 5/5 in upper extremities, rectal tone intact Objective Labs 10/01/24 04:29 10/01/24 04:29 Labs: Laboratory Results - last 24 hr 09/30/24 09/30/24 09/30/24 14:39 18:13 22:09 WBC 6.2 RBC 3.66 L Hgb 12.5 Hct 37.0 MCV 101 H MCH 34.2 MCHC 33.8 RDW Std Deviation 62.2 H Plt Count 214 Neut % (Auto) 55 Lymph % (Auto) 38 Coles % (Auto) 6 Eos % (Auto) 0 Baso % (Auto) 1 Neut # (Auto) 3.4 Lymph # (Auto) 2.3 Coles # (Auto) 0.4 Eos # (Auto) 0.0 Baso # (Auto) 0.0 Immature Gran # (Auto) 0.02 H Absolute Nucleated RBC 0.00 Immature Gran % 0 Nucleated RBC % 0 PT INR APTT Sodium 142 Potassium 3.9 Chloride 106 Carbon Dioxide 25.0 Anion Gap 11 BUN 6 L Creatinine 0.6 Estim Creat Clear Calc 84.8 eGFR > 60 BUN/Creatinine Ratio 10 L Glucose [address] Glu mg/dL 126 Hemoglobin A1c 6.0 Calculated Osmolality 282 Calcium 9.1 Corrected Calcium 9.4 Phosphorus 3.4 Magnesium 1.6 Total Bilirubin 0.6 AST 204 H ALT 21 Alkaline Phosphatase 171 H Total Creatine Kinase 34 Troponin I < 0.020 Total Protein 6.3 Albumin 3.6 Globulin 2.7 Albumin/Globulin Ratio 1.3 Vitamin B12 354 Folate 2.57 L Urine Opiates Screen Negative Urine Fentanyl Screen Negative Ur Barbiturates Screen Negative U Amphetamin/Meth Scrn Negative U Benzodiazepines Scrn Negative U Cocaine Metab Screen Negative U Marijuana (THC) Screen Negative Syphilis Serology Nonreactive Hepatitis A IgM Ab Non Reactive Hep Bs Antigen Non Reactive Hep B Core IgM Ab Non Reactive Hepatitis C Antibody Non Reactive HIV 1&2 Antibody Rapid Non-Reactive 10/01/24 04:29 WBC 6.1 RBC 3.37 L Hgb 11.5 L Hct 33.6 L MCV 100 MCH 34.1 MCHC 34.2 RDW Std Deviation 60.5 H Plt Count 202 Neut % (Auto) 54 Lymph % (Auto) 36 Coles % (Auto) 9 Eos % (Auto) 1 Baso % (Auto) 1 Neut # (Auto) 3.3 Lymph # (Auto) 2.2 Coles # (Auto) 0.6 Eos # (Auto) 0.0 Baso # (Auto) 0.0 Immature Gran # (Auto) 0.03 H Absolute Nucleated RBC 0.00 Immature Gran % 1 H Nucleated RBC % 0 PT 11.4 INR 1.0 APTT 22.7 Sodium 139 Potassium 3.8 Chloride 103 Carbon Dioxide 28.8 Anion Gap 7 BUN 9 Creatinine 0.5 L Estim Creat Clear Calc 104.5 eGFR > 60 BUN/Creatinine Ratio 18 [address]ucose [address] Glu mg/dL Hemoglobin A1c Calculated Osmolality 277 Calcium 9.2 Corrected Calcium 9.7 Phosphorus 3.8 Magnesium 1.6 Total Bilirubin 1.7 H D AST 174 H ALT 38 Alkaline Phosphatase 163 H Total Creatine Kinase Troponin I Total Protein 6.0 Albumin 3.4 Globulin 2.6 Albumin/Globulin Ratio 1.3 Vitamin B12 Folate Urine Opiates Screen Urine Fentanyl Screen Ur Barbiturates Screen U Amphetamin/Meth Scrn U Benzodiazepines Scrn U Cocaine Metab Screen U Marijuana (THC) Screen Syphilis Serology Hepatitis A IgM Ab Hep Bs Antigen Hep B Core IgM Ab Hepatitis C Antibody HIV 1&2 Antibody Rapid Quality Measures Quality Measures none Assessment & Plan Assessment Current Active Medications: Generic Name Dose Route Start Last Admin Trade Name Freq PRN Reason Stop Dose Admin Acetaminophen 650 mg 10/01/24 07:19 Acetaminophen 325 Mg Tablet PO 10/30/24 21:09 Q6H PRN Fever >100.5 Hydrocodone Bitart/Acetaminophen 1 tab 09/30/24 21:10 Hydrocodone/Apap 5/325 Tablet PO 10/05/24 21:09 Q4HR PRN PAIN SCALE 4-6 (Moderate Guaifenesin 100 mg 10/01/24 00:13 Guaifenesin Syrup 200 Mg/10 Ml Udc PO 10/31/24 00:12 QID PRN COUGH Protocol Ceftriaxone Sodium 1,000 mg/ 50 mls @ 100 mls/hr 10/01/24 21:00 Sodium Chloride IV 10/08/24 20:59 HS FEDERICO Magnesium Sulfate 4 gm in 50 mls @ 12.5 mls/hr 10/01/24 08:32 10/01/24 10:16 Magnesium Sulfate Ivpb IV 10/01/24 12:31 12.5 mls/hr X1 ONE Administration Ondansetron HCl 4 mg 09/30/24 21:10 Ondansetron Inj 2 Mg/Ml Inj 2 Ml IV 10/30/24 21:09 Q6H PRN NAUSEA OR VOMITING Protocol Pantoprazole Sodium 40 mg 10/01/24 09:00 10/01/24 08:30 Pantoprazole 40 Mg Tablet PO 10/31/24 08:59 40 mg QDAY FEDERICO Administration Plan Jade Reynoso is a 59-year-old female with a past medical history of chronic back pain, complicated cholecystectomy followed by ex laparotomy and bowel resection status post placement of nerve stimulator approximately 10 years ago who presented on 09/30 for generalized weakness and recurrent falls for 3 months. Of note, in she had COVID that resolved at end of June. Beginning of late July, she started to experience weakness in her lower extremities that led to multiple ground-level falls. At times, she does not recall these events . Also endorses multiple episodes of diarrhea with loss of bowel control, but not urine control. In ED, vitals normal and labs significant for AST 204, ALT wnl, ALP 171, folate low at 2.57, and normal B12 of 354. Imaging revealed moderate disc narrowing at L5-S1 and 4 mm central lumbar disc bulge displacing L and R nerve roots. Admitted for further work- up/management of syncope and imaging findings. #Generalized progressive weakness #Possible dysautonomia #Folic acid deficiency DDx: Elisabeth barre syndrome vs spinal cord compression; less likely syphilis vs viral infection vs autoimmune disorder vs paraneoplastic syndrome COVID infection in May/June, developed symptoms 1 month later. Denied previous GI infections. Associated with dizziness/syncopal episodes, diarrhea, palpitation which may indicate autonomic dysfunction. CT A/P: liver lesion 28 mm, with elevated AST and ALP, possible paraneoplastic syndrome Noted to have low folate acid of 2.5, vitamin B12 normal. Creatinine kinase normal. Syphilis nonreactive, hepatitis panel negative, HIV 1 and 2 negative. Echo 10/01 showed EF 60-65%, mild LVH, stage 1 diastolic dysfunction. Speech evaluation: passed. PT recommends SNF. ? Neurology consulted, appreciate recommendations ? Follow-up MARY, Kang antibody, smooth muscle antibody, dsDNA antibody, antimitochondrial antibody ? Follow-up cocci ? Follow-up TSH ? Follow-up RBC folate ? Multivitamins #Syncope #Ground-level falls Patient has multiple falls over she denied any limitation of movement, CT of the cervical spine, lumbar spine, thoracic spine, all within normal limits, CT brain was within normal limits with no signs of bleeding. Orthostatic vitals negative and echo showed EF 60-65%, stage 1 diastolic dysfunction. ? Pending records from [facility] in [place] ? Fall precautions ? Pain management as per protocol #Urinary tract infection Endorses dysuria and UA (+) nitrites, rare bacteria, 124 RBC, no WBC. ? Ceftriaxone 1 g daily ? Follow-up urine culture #History of GERD ? Protonix 40 mg p.o. daily Hospital management: Disposition: pending neurological evaluation Fluids: none Diet: regular Lines: PIV DVT prophylaxis: SCDs GI prophylaxis: pantoprazole IV CODE STATUS: full code ----- Plan discussed with attending physician Dr. Vu and senior resident physician Dr. Syed Delaney MD PGY-1 Internal Medicine
[2024-10-01 13:15] LABS: Cocci Serology, IgM Negative (Negative)
[2024-10-01] MEDS: HYDROcodone/APAP 5/325 TABLET 1 TAB PO ×3 (14:01→23:57)
--- NOTE | 2024-10-01 14:45 | PC.NURSE ---
Release of medical information sent to [facility] in [place] [phone] spoke with Carly in medical records, faxed (fax# [phone]) over release
[2024-10-01 17:02] LABS: Collection Type, Urine Clean Catch
[2024-10-01 17:13] LABS: Bacteria,Urine Rare; Bilirubin,Urine Negative (Negative); Blood,Urine Negative (Negative); Hyaline Casts,Urine < 1 /hpf (0-1); Ketones,Urine Negative (Negative); Leukocyte Esterase,Urine Negative (Negative); Nitrite,Urine Positive (Negative); PH,Urine 6.5 (5.0-7.0); Protein,Urine Trace (Neg - Trace); RBC,Urine 124 /hpf (0-3); Specific Gravity,Urine 1.033 (1.001-1.035); Squamous Epithelial Cell,Urine 4 /hpf (0-5); WBC,Urine 4 /hpf (0-5)
[2024-10-01 17:24] LABS: Color,Urine Lt Orange (Lt Yel-Yel)
[2024-10-01 17:25] LABS: Clarity,Urine Hazy (Clear/Hazy); Glucose, Urine Negative (Negative)
[2024-10-01] MEDS: guaiFENesin SYRUP 200 MG/10 ML UDC 100 MG PO (19:07)
[2024-10-01] MEDS: cefTRIAXone 1,000 MG in SODIUM CHLORIDE 0.9% (Popper) 50 ML 100 MG IV (20:09)
--- NOTE | 2024-10-01 22:36 | PD.NEUROPROG ---
Documentation for date of: 10/01/24 Subjective Subjective Interval history: Patient was seen in telemetry at the bedside. she continues to be lower back pain, weakness especially in the lower extremities, numbness. Denies bowel or p bladder control problems and saddle anesthesia Exam - Neurology Vital Signs Temp Pulse Resp BP Pulse Ox O2 Del Method 98.1 F 87 20 148/90 H 96 Room Air 10/01/24 20:00 10/01/24 20:00 10/01/24 20:00 10/01/24 20:00 10/01/24 20:00 10/01/24 20:00 Narrative Exam GENERAL APPEARANCE: Well hydrated, well-nourished in no acute distress. HEENT: Normocephalic, atraumatic, extraocular movements intact. Pupils: Equal reacting to light and accommodation NECK: Supple, no JVD or bruits. CARDIOVASULAR: Heart: S1, S2 heard, regular without S3-S4 or murmur no rubs or gallops. LUNGS/CHEST: Clear to auscultation bilaterally. No rails, rhonchi, or wheezing. Normal inspection. ABDOMEN: Soft, nontender, with normal bowel sounds. No pulsatile masses. No rebound, rigidity, or guarding. Normal inspection and palpation. EXTREMITIES: Normal inspection and palpation. No edema, clubbing or cyanosis. SKIN: Warm and dry without rashes. Normal inspection. MUSCULOSKELETAL: No cervical, thoracic, lumbar or midline bony tenderness. Normal inspection. NEURO: Alert, awake and oriented x3. Cranial nerves: II through XII grossly intact. Speech and language: Normal with no dysarthria or dysphasia. Motor system: Tone and bulk: Normal: Strength: 5 out of 5 in all 4 extremities; No pronator drift noted. Deep tendon reflexes: 1+ bilaterally symmetrical. Plantar reflex: Downgoing bilaterally. Sensory system: Intact to all modalities of sensation bilaterally. Coordination: Intact to igvboq-[id number]-okpfg and rhko-rnhm-qmxo test bilaterally. No ataxia, no dysmetria, or dysdiadochokinesia noted. No intention tremors noted. Gait: Not tested. No signs of meningeal irritation noted. PSYCHIATRIC: Normal mood and affect. Objective Labs 10/01/24 04:29 10/01/24 04:29 Labs: Laboratory Results - last 24 hr 09/30/24 10/01/24 10/01/24 22:09 04:29 16:39 WBC 6.1 RBC 3.37 L Hgb 11.5 L Hct 33.6 L MCV 100 MCH 34.1 MCHC 34.2 RDW Std Deviation 60.5 H Plt Count 202 Neut % (Auto) 54 Lymph % (Auto) 36 [place] % (Auto) 9 Eos % (Auto) 1 Baso % (Auto) 1 Neut # (Auto) 3.3 Lymph # (Auto) 2.2 [place] # (Auto) 0.6 Eos # (Auto) 0.0 Baso # (Auto) 0.0 Immature Gran # (Auto) 0.03 H Absolute Nucleated RBC 0.00 Immature Gran % 1 H Nucleated RBC % 0 PT 11.4 INR 1.0 APTT 22.7 Sodium 139 Potassium 3.8 Chloride 103 Carbon Dioxide 28.8 Anion Gap 7 BUN 9 Creatinine 0.5 L Estim Creat Clear Calc 104.5 eGFR > 60 BUN/Creatinine Ratio 18 Glucose 114 H Calculated Osmolality 277 Calcium 9.2 Corrected Calcium 9.7 Phosphorus 3.8 Magnesium 1.6 Total Bilirubin 1.7 H D AST 174 H ALT 38 Alkaline Phosphatase 163 H Total Creatine Kinase 34 Total Protein 6.0 Albumin 3.4 Globulin 2.6 Albumin/Globulin Ratio 1.3 TSH Ur Collection Type Clean Catch Urine Color Lt [place] A Urine Clarity Hazy Urine pH 6.5 Ur Specific [place] 1.033 Urine Protein Trace Urine Glucose (UA) Negative Urine Ketones Negative Urine Blood Negative Urine Nitrite Positive Urine Bilirubin Negative Urine Urobilinogen (Auto) 2.0 Ur Leukocyte Esterase Negative Urine RBC 124 H Urine WBC 4 Ur Squamous Epith Cells 4 Urine Bacteria Rare Hyaline Casts < 1 Syphilis Serology Nonreactive Coccidioides IgM Ab Negative Hepatitis A IgM Ab Non Reactive Hep Bs Antigen Non Reactive Hep B Core IgM Ab Non Reactive Hepatitis C Antibody Non Reactive HIV 1&2 Antibody Rapid Non-Reactive 10/01/24 16:47 WBC RBC Hgb Hct MCV MCH MCHC RDW Std Deviation Plt Count Neut % (Auto) Lymph % (Auto) [place] % (Auto) Eos % (Auto) Baso % (Auto) Neut # (Auto) Lymph # (Auto) [place] # (Auto) Eos # (Auto) Baso # (Auto) Immature Gran # (Auto) Absolute Nucleated RBC Immature Gran % Nucleated RBC % PT INR APTT Sodium Potassium Chloride Carbon Dioxide Anion Gap BUN Creatinine Estim Creat Clear Calc eGFR BUN/Creatinine Ratio Glucose Calculated Osmolality Calcium Corrected Calcium Phosphorus Magnesium Total Bilirubin AST ALT Alkaline Phosphatase Total Creatine Kinase Total Protein Albumin Globulin Albumin/Globulin Ratio TSH 7.80 H Ur Collection Type Urine Color Urine Clarity Urine pH Ur Specific [place] Urine Protein Urine Glucose (UA) Urine Ketones Urine Blood Urine Nitrite Urine Bilirubin Urine Urobilinogen (Auto) Ur Leukocyte Esterase Urine RBC Urine WBC Ur Squamous Epith Cells Urine Bacteria Hyaline Casts Syphilis Serology Coccidioides IgM Ab Hepatitis A IgM Ab Hep Bs Antigen Hep B Core IgM Ab Hepatitis C Antibody HIV 1&2 Antibody Rapid Assessment & Plan Assessment and plan (1) Syncope: Status: Acute Assessment and plan: Follow-up with EEG even though patient has not had any similar episodes after admission MRI brain and the lumbosacral spine once the spinal cord stimulator can be turned off after obtaining information about it. 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 She would need EMG nerve conduction study as an outpatient to confirm the diagnosis.
--- NOTE | 2024-10-01 22:45 | ECHO_ITS ---
Transthoracic Echo Report Ht (in): 62 Wt (lb): 144 Exam Location: Portable Status: Inpatient Medical Scientific Liaison: FLANAGAN Charisse^^^^ Indications: Procedure Performed: BP: 138 / 76 HR: 102 Technical Quality: Technically difficult study MEASUREMENTS (Male / Female) Normal Values 2D ECHO LV Diastolic Diameter PLAX 4.0 cm 4.2 - 5.9 / 3.9 - 5.3 cm LV Systolic Diameter PLAX 2.7 cm IVS Diastolic Thickness 0.8 cm 0.6 - 1.0 / 0.6 - 0.9 cm LVPW Diastolic Thickness 1.0 cm 0.6 - 1.0 / 0.6 - 0.9 cm LV Relative Wall Thickness 0.4 LVOT Diameter 1.9 cm Aortic Root Diameter 3.5 cm LA Systolic Diameter LX 2.8 cm 3.0 - 4.0 / 2.7 - 3.8 cm LV Ejection Fraction MOD BP 66.0 % >= 55 % LV Cardiac Index MOD BP 2654.0 cm?/min?m? LV Ejection Fraction MOD 4C 60.3 % LV Cardiac Index MOD 4C 2582.3 cm?/min?m? LV Ejection Fraction 4C AL 61.3 % LV Cardiac Index 4C AL 2566.1 cm?/min?m? LV Ejection Fraction MOD 2C 71.6 % LV Cardiac Index MOD 2C 2767.6 cm?/min?m? LV Ejection Fraction 2C AL 72.7 % LV Cardiac Index 2C AL 2855.3 cm?/min?m? LA Volume Index 25.4 cm?/m? 16 - 28 cm?/m? Ascending Aorta Diameter 3.0 cm DOPPLER AV Peak Velocity 108.0 cm/s AV Peak Gradient 4.7 mmHg AV Mean Gradient 2.0 mmHg AV Velocity Time Integral 19.6 cm LVOT Peak Velocity 78.3 cm/s LVOT Peak Gradient 2.5 mmHg LVOT Velocity Time Integral 20.3 cm LVOT Cardiac Index 3440.5 cm?/min?m? AV Area Cont Eq vti 2.9 cm? AV Area Cont Eq pk 2.1 cm? MV Area PHT 4.2 cm? Mitral E Point Velocity 50.4 cm/s Mitral A Point Velocity 75.3 cm/s Mitral E to A Ratio 0.7 LV E' Lateral Velocity 11.4 cm/s Mitral E to LV E' Lateral Ratio 4.4 LV E' Septal Velocity 8.9 cm/s Mitral E to LV E' Septal Ratio 5.7 PV Peak Velocity 84.6 cm/s PV Peak Gradient 2.9 mmHg RVOT Peak Velocity 64.3 cm/s FINDINGS Left Ventricle Normal left ventricular size, wall thickness, systolic function. There is abnormal septal motion. There is grade I diastolic dysfunction of the left ventricle (impaired relaxation pattern). The left ventricular ejection fraction is normal, estimated at 55-60%. Right Ventricle The right ventricle is normal in size and systolic function. The estimated right ventricular systolic pressure, 15 mmHg. Left Atrium The left atrium is normal by two-dimensional, color flow and Doppler imaging with no structural abnormalities, no thrombus formation present. Right Atrium The right atrium is normal by two-dimensional imaging, color flow and Doppler imaging with no structural abnormalities, no thrombus formation present. Atrial Septum The interatrial septum appears normal with no evidence of a shunt. Aorta The aorta is normal by two-dimensional, color flow and Doppler interrogation. Mitral Valve Trace to mild mitral regurgitation. Mild mitral annular calcification. Aortic Valve The aortic valve is trileaflet and normal to two-dimensional, color flow and Doppler interrogation. Tricuspid Valve There is trace tricuspid valve regurgitation. Pulmonic Valve Trivial pulmonic valve regurgitation. Vessels The pulmonary artery appears normal. The inferior vena cava pulmonary and hepatic veins appear normal. Pericardium The pericardium is normal by two-dimensional imaging. There is no significant pericardial effusion. CONCLUSIONS Indication: Syncope Normal LV size and function with an EF of 65 to 60 to 65%, mild LVH. Stage I diastolic dysfunction Normal RV size and function. Trace MR and mild MAC. Mild TR Waldo Duarte (Electronically Signed) Final Date: 01 October 2024 12:35
[2024-10-02] VITALS (9 sets, daily range): BP systolic 132–158; BP diastolic 73–104; PULSE 85–122; RESP 12–99; TEMP 36.2–36.7; O2SAT 95–99; BMI 25.6; BMI 13.0
--- NOTE | 2024-10-02 03:08 | PC.NURSE ---
[facility] downtime started from 0200 till 0303.
[2024-10-02 06:06] LABS: Basophils % (Auto) 0 % (0-2.5); Eosinophils % (Auto) 1 % (0-10); Hematocrit 33.8 % (36.0-46.0); Hemoglobin 11.5 g/dL (12.0-16.0); Immature Granulocytes % (Auto) 0 % (0-0); Immature Granulocytes Auto 0.01 Thou/mm3 (0.00-0.00); Lymphocytes # (Auto) 1.8 Thou/mm3 (1.0-4.8); Lymphocytes % (Auto) 36 % (10-50); Mean Corpuscular Hemoglobin 34.3 pg (25.0-35.0); Mean Corpuscular Volume 101 fL (80-100); Monocytes # (Auto) 0.4 Thou/mm3 (0.0-0.8); Monocytes % (Auto) 7 % (0-12); Neutrophils # (Auto) 2.8 Thou/mm3 (1.8-7.7); Neutrophils % (Auto) 56 % (37-80); Nucleated Red Blood Cell % 0 /100 WBC (0); Platelet Count 164 Thou/mm3 (140-440); RDW Standard Deviation 61.1 fL (36.4-46.3); Red Blood Count 3.35 Miln/mm3 (4.00-5.20)
[2024-10-02 06:42] LABS: Alanine Aminotransferase 32 U/L (10-49); Albumin, Serum 3.4 gm/dL (3.4-4.8); Albumin/Globulin Ratio 1.3 (1.2-2.2); Alkaline Phosphatase 151 U/L (46-116); Anion Gap 6 (7-16); Aspartate Amino Transferase 117 U/L (0-34); BUN/Creatinine Ratio 13 Ratio (12-20); Blood Urea Nitrogen 8 mg/dL (9-23); Calcium 9.1 mg/dL (8.3-10.6); Calcium (Corrected) 9.6 mg/dL (8.5-10.1); Carbon Dioxide 31.1 mMol/L (20.0-31.0); Chloride 104 mMol/L (98-107); Creatinine (Component) 0.6 mg/dL (0.6-1.3); Estimated Creatinine Clearance 86.3 mL/min (>60); Globulin 2.6 gm/dL (2.3-3.5); Glucose 113 mg/dL (74-106); Magnesium 2.2 mg/dL (1.6-2.6); Osmolality,Calculated 280 (275-295); Phosphorous 3.6 mg/dL (2.4-5.1); Potassium 4.2 mMol/L (3.4-5.1); Sodium 141 mMol/L (136-145); eGFR > 60 See Note
[2024-10-02] MEDS: PANTOPRAZOLE 40 MG TABLET PO (09:12)
[2024-10-02] MEDS: cefTRIAXone 1,000 MG in SODIUM CHLORIDE 0.9% (Popper) 50 ML 100 MG IV (09:12)
[2024-10-02 10:32] LABS: Free T4 (Free Thyroxine) 1.26 ng/dL (0.89-1.76)
[2024-10-02] MEDS: CYANOCOBALAMIN INJ 1,000 mCg/ML VIAL 1000 MCG IM (11:21)
[2024-10-02 12:20] LABS: Cocci Serology, IgG Negative (Negative)
--- NOTE | 2024-10-02 12:39 | PCS.ST ---
Pt presenting chronic symptoms of possible esophageal dysphagia, complaints of sense of obstruction; PMHx. gastric bypass. Diet consistency lowered to dysphagia 3 and then to dysphagia 2 at patient's request. Consider GI referral.
--- NOTE | 2024-10-02 13:45 | ESPR_ITS ---
<Statement entered by Oliverio Lynch MD - 10/02/24 15:21> Patient was seen and examined at the bedside. Patient reported that she has improvement in her both lower extremities. Patient reported that they do not have access to the remote for controlling stimulator therefore neurologist recommended outpatient follow-up for EEG and MRI of the spine. Currently urine cultures are pending. Speech therapist recommended to continue dysphagia diet as patient has a history of esophageal dilation possibly due to stenosis of esophagus in the past. Currently patient is pending on insurance authorization so we will likely keep the patient and anticipate discharge tomorrow. All labs and orders were reviewed. I saw and examined the patient, and I agree with current management stated by Dr Elaina MD,PGY1. Plan of care was discussed with the attending physician and resident physician. Disclaimer: Despite multiple revisions, due to the dictation software being used, the document bellow may not be free of grammatical errors including phonetic/typographic errors. However, this does not deter from our commitment to providing health care in the patient's best interest in mind. Dr. Syed MD, PGY 2 Documentation for date of: 10/02/24 Subjective Subjective Interval history: Jade Reynoso is a 59-year-old female with a past medical history of chronic back pain, complicated cholecystectomy followed by ex laparotomy and bowel resection status post placement of nerve stimulator approximately 10 years ago who presented on 09/30 for generalized weakness and recurrent falls for 3 months. Of note, in May/June she had COVID that resolved at end of June. Beginning of late July, she started to experience weakness in her lower extremities that led to multiple ground-level falls. At times, she does not recall these events. Also endorses multiple episodes of diarrhea with loss of bowel control, but not urine control. In ED, vitals normal and labs significant for AST 204, ALT wnl, ALP 171, folate low at 2.57, and normal B12 of 354. Imaging revealed moderate disc narrowing at L5-S1 and 4 mm central lumbar disc bulge displacing L and R nerve roots. Admitted for further work- up/management of syncope and imaging findings. 10/01: Seen and examined at bedside. No acute overnight events reported. No fever, chills, N/V, SOB, CP. In-house neurology consulted, pending recommendations. Given that patient has device placed, pending infomration regarding device to see if it is MRI compatible for further work-up of imaging findings in ED. Orthostatic vitals negative and echo showed EF 60-65%, stage 1 diastolic dysfunction. 10/02: Seen and examined at bedside in telemetry. No acute overnight events reported. Given timelime of symptoms, neurology suspecting chronic infammatory demyelinating polyneuropathy and recommends obtaining outpatient EMG nerve conduction study to confirm diagnosis. Regarding MRI and EEG, per neurology, patient can obtain as outpatient as well as she does not have access to the remote for the device. In the meantime, patient will stay one more hospital night due to pending insurance authorization. However, can still see if any information comes up regarding device in the mean time. TSH noted to be high but free T4 within normal limits. Exam Vital Signs Temp Pulse Resp BP Pulse Ox O2 Del Method 97.6 F 122 H 14 132/73 H 95 Room Air 10/02/24 12:00 10/02/24 12:00 10/02/24 12:10/02/24 12:00 10/02/24 12:10/02/24 08:00 Narrative Exam General: AOx3, no acute distress, able to speak full sentences HEENT: NC/AT, mucous membranes moist, bilateral sclera anicteric Cardiovascular: regular rate and rhythm, S1/S2 present, no murmurs appreciated Pulmonary: clear to auscultation bilaterally, no rales/rhonchi/wheezes Abdominal: soft, non-tender, non-distended, no rebound/guarding, normal bowel sounds present Musculoskeletal: normal ROM, no peripheral edema Skin: warm and dry, intact, no rashes Neuro: CN II-XII intact, strength 4/5 in BLE, strength 5/5 in upper extremities, rectal tone intact Objective Labs 10/02/24 05:51 10/02/24 05:51 Labs: Laboratory Results - last 24 hr 09/30/24 10/01/24 10/01/24 22:09 16:39 16:47 WBC RBC Hgb Hct MCV MCH MCHC RDW Std Deviation Plt Count Neut % (Auto) Lymph % (Auto) [place] % (Auto) Eos % (Auto) Baso % (Auto) Neut # (Auto) Lymph # (Auto) [place] # (Auto) Eos # (Auto) Baso # (Auto) Immature Gran # (Auto) Absolute Nucleated RBC Immature Gran % Nucleated RBC % Sodium Potassium Chloride Carbon Dioxide Anion Gap BUN Creatinine Estim Creat Clear Calc eGFR BUN/Creatinine Ratio Glucose Calculated Osmolality Calcium Corrected Calcium Phosphorus Magnesium Total Bilirubin AST ALT Alkaline Phosphatase Total Protein Albumin Globulin Albumin/Globulin Ratio TSH 7.80 H Free T4 Ur Collection Type Clean Catch Urine Color Lt [place] A Urine Clarity Hazy Urine pH 6.5 Ur Specific [place] 1.033 Urine Protein Trace Urine Glucose (UA) Negative Urine Ketones Negative Urine Blood Negative Urine Nitrite Positive Urine Bilirubin Negative Urine Urobilinogen (Auto) 2.0 Ur Leukocyte Esterase Negative Urine RBC 124 H Urine WBC 4 Ur Squamous Epith Cells 4 Urine Bacteria Rare Hyaline Casts < 1 Coccidioides IgG Ab Negative 10/02/24 05:51 WBC 5.0 RBC 3.35 L Hgb 11.5 L Hct 33.8 L MCV 101 H MCH 34.3 MCHC 34.0 RDW Std Deviation 61.1 H Plt Count 164 D Neut % (Auto) 56 Lymph % (Auto) 36 [place] % (Auto) 7 Eos % (Auto) 1 Baso % (Auto) 0 Neut # (Auto) 2.8 Lymph # (Auto) 1.8 [place] # (Auto) 0.4 Eos # (Auto) 0.0 Baso # (Auto) 0.0 Immature Gran # (Auto) 0.01 H Absolute Nucleated RBC 0.00 Immature Gran % 0 Nucleated RBC % 0 Sodium 141 Potassium 4.2 Chloride 104 Carbon Dioxide 31.1 H Anion Gap 6 L BUN 8 L Creatinine 0.6 Estim Creat Clear Calc 86.3 eGFR > 60 BUN/Creatinine Ratio 13 Glucose 113 H Calculated Osmolality 280 Calcium 9.1 Corrected Calcium 9.6 Phosphorus 3.6 Magnesium 2.2 Total Bilirubin 1.0 D AST 117 H ALT 32 Alkaline Phosphatase 151 H Total Protein 6.0 Albumin 3.4 Globulin 2.6 Albumin/Globulin Ratio 1.3 TSH Free T4 1.26 Ur Collection Type Urine Color Urine Clarity Urine pH Ur Specific [place] Urine Protein Urine Glucose (UA) Urine Ketones Urine Blood Urine Nitrite Urine Bilirubin Urine Urobilinogen (Auto) Ur Leukocyte Esterase Urine RBC Urine WBC Ur Squamous Epith Cells Urine Bacteria Hyaline Casts Coccidioides IgG Ab Quality Measures Quality Measures none Assessment & Plan Assessment Current Active Medications: Generic Name Dose Route Start Last Admin Trade Name Freq PRN Reason Stop Dose Admin Acetaminophen 650 mg 10/01/24 07:19 Acetaminophen 325 Mg Tablet PO 10/30/24 21:09 Q6H PRN Fever >100.5 Hydrocodone Bitart/Acetaminophen 1 tab 09/30/24 21:10 10/01/24 23:57 Hydrocodone/Apap 5/325 Tablet PO 10/05/24 21:09 1 tab Q4HR PRN Administration PAIN SCALE 4-6 (Moderate Guaifenesin 100 mg 10/01/24 00:13 10/01/24 19:07 Guaifenesin Syrup 200 Mg/10 Ml Udc PO 10/31/24 00:12 100 mg QID PRN Administration COUGH Protocol Ceftriaxone Sodium 1,000 mg/ 50 mls @ 100 mls/hr 10/01/24 21:00 10/02/24 09:12 Sodium Chloride IV 10/08/24 20:59 100 mls/hr QDAY FEDERICO Administration Ondansetron HCl 4 mg 09/30/24 21:10 Ondansetron Inj 2 Mg/Ml Inj 2 Ml IV 10/30/24 21:09 Q6H PRN NAUSEA OR VOMITING Protocol Pantoprazole Sodium 40 mg 10/01/24 09:00 10/02/24 09:12 Pantoprazole 40 Mg Tablet PO 10/31/24 08:59 40 mg QDAY FEDERICO Administration Plan Jade Reynoso is a 59-year-old female with a past medical history of chronic back pain, complicated cholecystectomy followed by ex laparotomy and bowel resection status post placement of nerve stimulator approximately 10 years ago who presented on 09/30 for generalized weakness and recurrent falls for 3 months. Of note, in she had COVID that resolved at end of June. Beginning of late July, she started to experience weakness in her lower extremities that led to multiple ground-level falls. At times, she does not recall these events . Also endorses multiple episodes of diarrhea with loss of bowel control, but not urine control. In ED, vitals normal and labs significant for AST 204, ALT wnl, ALP 171, folate low at 2.57, and normal B12 of 354. Imaging revealed moderate disc narrowing at L5-S1 and 4 mm central lumbar disc bulge displacing L and R nerve roots. Admitted for further work- up/management of syncope and imaging findings. #Generalized progressive weakness #Possible dysautonomia #Folic acid deficiency DDx: Elisabeth barre syndrome vs spinal cord compression; less likely syphilis vs viral infection vs autoimmune disorder vs paraneoplastic syndrome COVID infection in May/June, developed symptoms 1 month later. Denied previous GI infections. Associated with dizziness/syncopal episodes, diarrhea, palpitation which may indicate autonomic dysfunction. CT A/P: liver lesion 28 mm, with elevated AST and ALP, possible paraneoplastic syndrome Noted to have low folate acid of 2.5, vitamin B12 normal. Creatinine kinase normal. Syphilis nonreactive, hepatitis panel negative, HIV 1 and 2 negative. Echo 10/01 showed EF 60-65%, mild LVH, stage 1 diastolic dysfunction. Speech evaluation: passed. PT recommends SNF. ? Neurology consulted, appreciate recommendations ? Follow-up MARY, Kang antibody, smooth muscle antibody, dsDNA antibody, antimitochondrial antibody ? Follow-up cocci ? Follow-up RBC folate ? Multivitamins #Syncope #Ground-level falls Patient has multiple falls over she denied any limitation of movement, CT of the cervical spine, lumbar spine, thoracic spine, all within normal limits, CT brain was within normal limits with no signs of bleeding. Orthostatic vitals negative and echo showed EF 60-65%, stage 1 diastolic dysfunction. ? Pending records from [facility] in [place] ? Fall precautions ? Pain management as per protocol #Urinary tract infection Endorses dysuria and UA (+) nitrites, rare bacteria, 124 RBC, no WBC. ? Ceftriaxone 1 g daily ? Follow-up urine culture #History of GERD ? Protonix 40 mg p.o. daily #Subclinical hypothyroidism TSH elevated at 7.8 and free T4 within normal limits. TSH < 10 and thus no indication for treatment. Hospital management: Disposition: pending MRI and confirmation that device is MRI compatible Fluids: none Diet: regular Lines: PIV DVT prophylaxis: SCDs GI prophylaxis: pantoprazole IV CODE STATUS: full code ----- Plan discussed with attending physician Dr. Severino and senior resident physician Dr. Syed Delaney MD PGY-1 Internal Medicine Attending Provider Attestation/Addendum I have discussed and was present for the essential components of the history, physical examination, diagnosis, and treatment plan with the resident. I agree with the patient's care as documented by the resident and amended herein by me. Tushar Severino DO. Patient seen and evaluated this AM. DC pending authorization for SNF. EEG/EMG as well as MRI can be accomplished on an outpatient basis. Although this document has been carefully reviewed, there may still be some phonetic and other typographical errors. These errors are purely grammatical due to imperfections in the software program and should not be construed in any way to compromise the substance of the patient's medical care during this visit.
--- NOTE | 2024-10-02 14:40 | PC.SS ---
SS follow up note; SS spoke to Valarie from [facility] and insurance verification is pending at the time.
[2024-10-02] MEDS: HYDROcodone/APAP 5/325 TABLET 1 TAB PO (20:59)
--- NOTE | 2024-10-02 23:09 | PD.NEUROPROG ---
Documentation for date of: 10/02/24 Subjective Subjective Interval history: Patient was seen in telemetry at the bedside. she continues to be lower back pain, weakness especially in the lower extremities, numbness but significantly improved today to the point of able to walk with a walker without much assistance. Denies bowel or p bladder control problems and saddle anesthesia Exam - Neurology Vital Signs Temp Pulse Resp BP Pulse Ox O2 Del Method 97.1 F 98 20 146/94 H 95 Room Air 10/02/24 20:00 10/02/24 20:05 10/02/24 20:05 10/02/24 20:00 10/02/24 20:00 10/02/24 20:00 Narrative Exam GENERAL APPEARANCE: Well hydrated, well-nourished in no acute distress. HEENT: Normocephalic, atraumatic, extraocular movements intact. Pupils: Equal reacting to light and accommodation NECK: Supple, no JVD or bruits. CARDIOVASULAR: Heart: S1, S2 heard, regular without S3-S4 or murmur no rubs or gallops. LUNGS/CHEST: Clear to auscultation bilaterally. No rails, rhonchi, or wheezing. Normal inspection. ABDOMEN: Soft, nontender, with normal bowel sounds. No pulsatile masses. No rebound, rigidity, or guarding. Normal inspection and palpation. EXTREMITIES: Normal inspection and palpation. No edema, clubbing or cyanosis. SKIN: Warm and dry without rashes. Normal inspection. MUSCULOSKELETAL: No cervical, thoracic, lumbar or midline bony tenderness. Normal inspection. NEURO: Alert, awake and oriented x3. Cranial nerves: II through XII grossly intact. Speech and language: Normal with no dysarthria or dysphasia. Motor system: Tone and bulk: Normal: Strength: 5 out of 5 in all 4 extremities; No pronator drift noted. Deep tendon reflexes: 1+ bilaterally symmetrical. Plantar reflex: Downgoing bilaterally. Sensory system: Intact to all modalities of sensation bilaterally. Coordination: Intact to alkxel-hqjy-wnbbz and gtfw-hpuq-yevj test bilaterally. No ataxia, no dysmetria, or dysdiadochokinesia noted. No intention tremors noted. Gait: Walked in the hallway with a walker. No signs of meningeal irritation noted. PSYCHIATRIC: Normal mood and affect. Objective Labs 10/03/24 05:15 03/06/25 05:15 Labs: Laboratory Results - last 24 hr 09/30/24 10/02/24 22:09 05:51 WBC 5.0 RBC 3.35 L Hgb 11.5 L Hct 33.8 L MCV 101 H MCH 34.3 MCHC 34.0 RDW Std Deviation 61.1 H Plt Count 164 D Neut % (Auto) 56 Lymph % (Auto) 36 [place] % (Auto) 7 Eos % (Auto) 1 Baso % (Auto) 0 Neut # (Auto) 2.8 Lymph # (Auto) 1.8 [place] # (Auto) 0.4 Eos # (Auto) 0.0 Baso # (Auto) 0.0 Immature Gran # (Auto) 0.01 H Absolute Nucleated RBC 0.00 Immature Gran % 0 Nucleated RBC % 0 Sodium 141 Potassium 4.2 Chloride 104 Carbon Dioxide 31.1 H Anion Gap 6 L BUN 8 L Creatinine 0.6 Estim Creat Clear Calc 86.3 eGFR > 60 BUN/Creatinine Ratio 13 Glucose 113 H Calculated Osmolality 280 Calcium 9.1 Corrected Calcium 9.6 Phosphorus 3.6 Magnesium 2.2 Total Bilirubin 1.0 D AST 117 H ALT 32 Alkaline Phosphatase 151 H Total Protein 6.0 Albumin 3.4 Globulin 2.6 Albumin/Globulin Ratio 1.3 Free T4 1.26 Coccidioides IgG Ab Negative Assessment & Plan Assessment and plan (1) Syncope: Status: Acute Assessment and plan: Follow-up with EEG as an outpatient, Patient has not had any major event after admission. Stable for discharge but no driving until workup is completed (2) Weakness generalized: Status: Acute Assessment and plan: Improved significantly from admission. She would need EMG nerve conduction study as an outpatient to evaluate further and decide about the MRI once we figure out the spinal cord stimulator information.
[2024-10-03] VITALS: BP 138/85; PULSE 90; PULSE 93; RESP 20; TEMP 36.1; O2SAT 96
[2024-10-03 04:00] VITALS: BP 162/95; PULSE 74; PULSE 917; RESP 21; TEMP 36.1; O2SAT 95
[2024-10-03 06:00] VITALS: BMI 25.7
[2024-10-03 06:02] LABS: Basophils % (Auto) 0 % (0-2.5); Eosinophils % (Auto) 1 % (0-10); Hematocrit 32.6 % (36.0-46.0); Immature Granulocytes % (Auto) 0 % (0-0); Immature Granulocytes Auto 0.02 Thou/mm3 (0.00-0.00); Lymphocytes % (Auto) 43 % (10-50); Mean Corpuscular HGB Conc 33.7 g/dl (31.0-37.0); Mean Corpuscular Hemoglobin 34.6 pg (25.0-35.0); Mean Corpuscular Volume 103 fL (80-100); Monocytes # (Auto) 0.4 Thou/mm3 (0.0-0.8); Monocytes % (Auto) 9 % (0-12); Neutrophils # (Auto) 2.2 Thou/mm3 (1.8-7.7); Neutrophils % (Auto) 47 % (37-80); Nucleated Red Blood Cell % 0 /100 WBC (0); Platelet Count 153 Thou/mm3 (140-440); RDW Standard Deviation 62.9 fL (36.4-46.3); Red Blood Count 3.18 Miln/mm3 (4.00-5.20); White Blood Count 4.7 Thou/mm3 (3.6-11.0)
[2024-10-03 06:21] LABS: Alanine Aminotransferase 26 U/L (10-49); Albumin, Serum 3.3 gm/dL (3.4-4.8); Albumin/Globulin Ratio 1.3 (1.2-2.2); Alkaline Phosphatase 144 U/L (46-116); Anion Gap 7 (7-16); Aspartate Amino Transferase 96 U/L (0-34); BUN/Creatinine Ratio 17 Ratio (12-20); Bilirubin,Total 0.7 mg/dL (0.3-1.2); Blood Urea Nitrogen 10 mg/dL (9-23); Calcium 9.4 mg/dL (8.3-10.6); Carbon Dioxide 30.2 mMol/L (20.0-31.0); Chloride 105 mMol/L (98-107); Creatinine (Component) 0.6 mg/dL (0.6-1.3); Estimated Creatinine Clearance 86.3 mL/min (>60); Globulin 2.5 gm/dL (2.3-3.5); Glucose 126 mg/dL (74-106); Magnesium 2.1 mg/dL (1.6-2.6); Osmolality,Calculated 284 (275-295); Phosphorous 3.6 mg/dL (2.4-5.1); Potassium 3.5 mMol/L (3.4-5.1); Sodium 142 mMol/L (136-145); Total Protein 5.8 gm/dL (5.7-8.2); eGFR > 60 See Note
[2024-10-03 06:59] VITALS: PULSE 94; RESP 20; RESP 98
[2024-10-03 08:00] VITALS: BP 155/97; PULSE 110; PULSE 93; RESP 18; TEMP 36.1; O2SAT 97
[2024-10-03] MEDS: PANTOPRAZOLE 40 MG TABLET PO (08:12)
[2024-10-03] MEDS: POTASSIUM CHLORIDE 20 mEq TABCR PO (08:12)
[2024-10-03] MEDS: cefTRIAXone 1,000 MG in SODIUM CHLORIDE 0.9% (Popper) 50 ML 100 MG IV (08:34)
--- NOTE | 2024-10-03 09:45 | PC.SS ---
SS follow up note; SS contacted Valarie from [facility] in regards to auth status. Valarie informed SS that auth was still pending at the time.
[2024-10-03 12:00] VITALS: BP 155/99; PULSE 91; PULSE 93; RESP 22; TEMP 36.4; O2SAT 96
--- NOTE | 2024-10-03 13:06 | PC.SS ---
Addendum entered by Geovanna Ken 10/03/24 16:07: SS follow up note; SS set up transportation for patient with [facility] for 1730. SS notified patient's nurse Natalie as well as Valarie from [facility]. Patient is also aware. Addendum entered by Geovanna Ken 10/03/24 15:40: SS follow up note; SS received a call from Valarie from [facility] reporting set up transportation for patient with [employer], Reference # [id number]. SS contacted patient's nurse, Natalie to inform her that SS set up transportation. SS will also notify patient. Original Note: SS follow up note; SS followed up with Valarie from [facility] and she reported she has a pending auth number however she is just waiting on approval.
--- NOTE | 2024-10-03 13:35 | PC.NURSE ---
awaiting for insurance authorization for snf placement.
--- NOTE | 2024-10-03 15:37 | ESDS_ITS ---
<Statement entered by Oliverio Lynch MD - 10/03/24 19:20> I saw and examined the patient, and I agree with current management stated by Dr Elaina MD,PGY1. Plan of care was discussed with the attending physician and resident physician. Disclaimer: Despite multiple revisions, due to the dictation software being used, the document bellow may not be free of grammatical errors including phonetic/typographic errors. However, this does not deter from our commitment to providing health care in the patient's best interest in mind. Dr. Syed MD, PGY 2 Planned Discharge Date 10/03/24 DS: Providers Provider Date of admission: 09/30/24 21:10 Primary care physician: Darryl Hernandez MD Admitting Provider: Will Nunez MD Attending Provider on Admission: Rob Severino DO Consults: 09/30/24 17:19 Consult to Neurology / Tele-Neurology Stat Comment: syncope Consulting Provider: Murtaza Kaufman 09/30/24 21:31 Referral Physical Therapy Stat Comment: Physician Instructions: Attending Provider on DC: Parker Nieves MD Discharging Provider: Parker Nieves MD DS: Diagnosis Problem List Completed Was Problem List Reviewed/Reconciled?: Yes Hospital Course Hospital Course Hospital course: Jade Reynoso is a 59-year-old female with a past medical history of chronic back pain, complicated cholecystectomy followed by ex laparotomy and bowel resection status post placement of nerve stimulator approximately 10 years ago who presented on 09/30 for generalized weakness and recurrent falls for 3 months. Of note, in she had COVID that resolved at end of June. Beginning of late July, she started to experience weakness in her lower extremities that led to multiple ground-level falls. At times, she does not recall these events. Also endorses multiple episodes of diarrhea with loss of bowel control, but not urine control. Labs significant for folate 2.57 but otherwise B12 normal. Imaging revealed moderate disc narrowing at L5-S1 and 4 mm central lumbar disc bulge displacing L and R nerve roots. Admitted for further work-up/management of syncope and imaging findings. Throughout hospital course, no acute overnight events. Workup, including orthostatic vitals, echo, and CT head unrevealing. 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 Recommended outpatient EMG. Attempted to obtain MRI spine and brain but given device patient has, unable to obtain records to verify that it is MRI- compatible. Thus, will likely have to undergo outpatient workup. Otherwise, patient states that her strength has greatly improved since being admitted and per physical therapy evaluation, recommend discharge to SNF. Vitals remained largely unremarkable and patient deemed stable for discharge. Instructed her to again follow-up with neurology outpatient for further workup, including EEG, EMG, and MRI. Diagnoses during admission: #Generalized progressive weakness #Possible dysautonomia #Folic acid deficiency #Syncope #Ground-level falls #Urinary tract infection #History of GERD #Subclinical hypothyroidism Discharge instructions: - Follow-up with neurologist, Dr. Kaufman, outpatient for: - Electroencephalogram (EEG), electromyography (EMG), and MRI - Follow-up with your PCP within 1 week of discharge. Can follow up on autoimmune work up that is currently pending. - Continue taking all home medications as prescribed, follow up with in 2 weeks, call [phone] for your appointment. - Return to the ED if symptoms worsen or recur Time Spent with Patient Time attestation: Total time spent providing and/or coordinating discharge services: Exam Vital Signs Temp Pulse Resp BP Pulse Ox O2 Del Method 97.6 F 91 22 H 155/99 H 96 Room Air 10/03/24 12:10/03/24 12:10/03/24 12:10/03/24 12:10/03/24 12:10/03/24 12:00 Narrative Exam General: AOx3, no acute distress, able to speak full sentences HEENT: NC/AT, mucous membranes moist, bilateral sclera anicteric Cardiovascular: regular rate and rhythm, S1/S2 present, no murmurs appreciated Pulmonary: clear to auscultation bilaterally, no rales/rhonchi/wheezes Abdominal: soft, non-tender, non-distended, no rebound/guarding, normal bowel sounds present Musculoskeletal: normal ROM, no peripheral edema Skin: warm and dry, intact, no rashes Neuro: CN II-XII intact, strength 4/5 in BLE, strength 5/5 in upper extremities, rectal tone intact Discharge Plan Plan Patient Disposition: Xfer Skilled Nsg Fac (SNF) Patient condition on transfer: Stable Care Plan Goals: - Follow-up with neurologist, Dr. Kaufman, outpatient for: - Electroencephalogram (EEG), electromyography (EMG), and MRI - Follow-up with your PCP within 1 week of discharge. Can follow up on autoimmune work up that is currently pending. - Continue taking all home medications as prescribed, follow up with in 2 weeks, call [phone] for your appointment. - Return to the ED if symptoms worsen or recur Prescriptions/Referrals Prescriptions/Med Rec: New cephalexin 500 mg capsule 500 mg PO BID 4 Days Qty: 8 0RF ondansetron 4 mg tablet,disintegrating 4 mg PO Q8H PRN (Reason: nausea and vomiting) Qty: 20 0RF Continued sucralfate 1 gram tablet 1 g PO 1XD pantoprazole 40 mg tablet,delayed release (DR/EC) 40 mg PO 2XD Referrals: Darryl Hernandez MD [Primary Care Provider] - Patient/Caregiver Discharge Instructions Discharge Activity: as per physical therapy Education Materials: ED Weakness (Uncertain Cause) Print Language: Malawian Stand Alone Forms: [employer] Award Info., Patient Portal Info Letter Discharge Order Discharge Orders: Discharge (Routine); Ordered 10/03/24 Ordered By: Parker Nieves Quality Discharge Quality Measures VTE prophylaxis MD Attestestation MD Attestation I have discussed and was present for the essential components of the discharge history, physical examination, diagnosis, and discharge treatment plan with the resident. I agree with the patient's discharge care as documented by the resident and amended herein by me. Tushar Severino, . The patient understood all discharge instructions, all questions were answered satisfactorily. The patient was instructed to return to the Emergency Department is symptoms worsened or persisted. Patient was stable, afebrile and tolerating p.o. intake at time of discharge. Although this document has been carefully reviewed, there may still be some phonetic and other typographical errors. These errors are purely grammatical due to imperfections in the software program and should not be construed in any way to compromise the substance of the patient's medical care during this visit.
[2024-10-03 16:00] VITALS: BP 129/69; PULSE 121; PULSE 123; RESP 14; TEMP 36.3; O2SAT 99
--- NOTE | 2024-10-03 16:28 | PC.NURSE ---
report given to rufina perea @ [facility] , aaiting for [facility] to [facility] picker patient @ [phone].
--- NOTE | 2024-10-03 21:05 | PD.VPROG1 ---
Telemedicine visit statement This visit was conducted with the use of phone was obtained on 10/03/24 Documentation for date of: 10/03/24 Subjective Subjective Interval history: Patient is in telemetry. No new symptoms reported. Virtual exam Vital Signs Temp Pulse Resp BP Pulse Ox O2 Del Method 97.4 F 123 H 14 129/69 99 Room Air 10/03/24 16:00 10/03/24 16:00 10/03/24 16:00 10/03/24 16:00 10/03/24 16:00 10/03/24 16:00 Objective Labs 10/03/24 05:15 10/03/24 05:15 Labs: Laboratory Results - last 24 hr 10/03/24 05:15 WBC 4.7 RBC 3.18 L Hgb 11.0 L Hct 32.6 L MCV 103 H MCH 34.6 MCHC 33.7 RDW Std Deviation 62.9 H Plt Count 153 Neut % (Auto) 47 Lymph % (Auto) 43 Harper % (Auto) 9 Eos % (Auto) 1 Baso % (Auto) 0 Neut # (Auto) 2.2 Lymph # (Auto) 2.0 Harper # (Auto) 0.4 Eos # (Auto) 0.0 Baso # (Auto) 0.0 Immature Gran # (Auto) 0.02 H Absolute Nucleated RBC 0.00 Immature Gran % 0 Nucleated RBC % 0 Sodium 142 Potassium 3.5 D Chloride 105 Carbon Dioxide 30.2 Anion Gap 7 BUN 10 Creatinine 0.6 Estim Creat Clear Calc 86.3 eGFR > 60 BUN/Creatinine Ratio 17 Glucose 126 H Calculated Osmolality 284 Calcium 9.4 Corrected Calcium 10.0 Phosphorus 3.6 Magnesium 2.1 Total Bilirubin 0.7 AST 96 H ALT 26 Alkaline Phosphatase 144 H Total Protein 5.8 Albumin 3.3 L Globulin 2.5 Albumin/Globulin Ratio 1.3 Assessment & Plan Assessment (1) Syncope: Status: Acute Assessment and plan: Follow-up with EEG as an outpatient, Patient has not had any major event after admission. Stable for discharge to local rehab but no driving until workup is completed (2) Weakness generalized: Status: Acute Assessment and plan: Improved significantly from admission. She would need EMG nerve conduction study as an outpatient to evaluate further and decide about the MRI once we figure out the spinal cord stimulator information.
[2024-10-04 15:35] LABS: Sm Antibody <1.0 NEG AI (<1.0 NEGATIVE)
[2024-10-07 06:48] LABS: DNA (ds) Antibody* 1 IU/mL; Mitochondrial Ab NEGATIVE (NEGATIVE); Sm/RNP Antibody <1.0 NEG AI (<1.0 NEGATIVE)
[2024-10-07 06:49] LABS: Folate, RBC* 391 ng/mL RBC (>280)
[2024-10-08 06:39] LABS: Vitamin B1 (Thiamine)* <6 nmol/L (8-30)
== END 2024-10-03 17:30 | disposition skilled nursing facility (03) | DRG 204 ==
LOC: SERX 21:23 → SERHOLD 21:48 → S3NX 10-01 06:17 → S2NX 10-02 01:39
PROVIDERS: Student in an Organized Health Care Education/Training Program; Admitting Provider Student in an Organized Health Care Education/Training Program; Emergency Provider Emergency Medicine; PCP Family Medicine; Visit Provider Student in an Organized Health Care Education/Training Program
DX: R55 Syncope and collapse (principal); R53.1 Weakness; R15.9 Full incontinence of feces; G89.29 Other chronic pain; M54.9 Dorsalgia, unspecified; K76.9 Liver disease, unspecified; E53.8 Deficiency of other specified B group vitamins; K21.9 Gastro-esophageal reflux disease without esophagitis; E03.8 Other specified hypothyroidism; M48.061 Spinal stenosis, lumbar region without neurogenic claudication; N39.0 Urinary tract infection, site not specified; K22.89 Other specified disease of esophagus; F17.200 Nicotine dependence, unspecified, uncomplicated; G90.9 Disorder of the autonomic nervous system, unspecified; N95.1 Menopausal and female climacteric states; R19.7 Diarrhea, unspecified; R29.6 Repeated falls; R20.0 Anesthesia of skin; Z86.16 Personal history of COVID-19; Z90.49 Acquired absence of other specified parts of digestive tract; Z88.2 Allergy status to sulfonamides
CPT/HCPCS: 36415; 70450; 71046; 72125; 72128; 72131; 73521; 74177; 76705; 80053; 80074; 80307; 81001; 82550; 82607; 82746; 82747; 83036; 83735; 84100; 84425; 84439; 84443; 84484; 85025; 85610; 85730; 86038; 86225; 86235; 86255; 86331; 86635; 86703; 86780; 87077; 87086; 87186; 92526; 92610; 93005; 93225; 93306; 96365; 97162; 99285; A4649; J0696; J3420; J3475; J7050; Q9967; A9270

== ENCOUNTER → 2024-11-14 | Outpatient (CLI) | payer MEDICAID, SELFPAY | END | disposition home or self-care (01) | PROVIDERS: PCP Physician Assistant Medical; Referring Provider Psychiatry & Neurology Neurology; Visit Provider Psychiatry & Neurology Neurology | DX: G89.4 Chronic pain syndrome (principal) | CPT/HCPCS: 95816 ==

== ENCOUNTER 2024-12-04 10:47 | Emergency (ER) | payer MEDICAID, SELFPAY ==
[2024-12-04 10:47] VITALS: BP 121/75; PULSE 96; RESP 19; TEMP 36.8; O2SAT 97
[2024-12-04 10:48] VITALS: BMI 28.9
[2024-12-04 10:54] VITALS: PULSE 97; O2SAT 98; BMI 25.2
[2024-12-04 11:04] VITALS: BP 154/86; PULSE 101; RESP 19; TEMP 36.7; O2SAT 100
--- NOTE | 2024-12-04 11:31 | EDNOTE_ITS ---
ED Weakness RME/HPI General Chief complaint: Weakness Stated complaint: GENERAL WEAKNESS/ ETOH Time Seen by Provider: 12/04/24 11:18 Source: patient Arrival date/time: 12/04/24 10:47 Limitations: no limitations RME / HPI RME / HPI Narrative: 59-year-old female presents to the ED with multiple complaints, but the most recent complaint is related to drinking alcohol last night and feeling weak. She has been having nausea and vomiting as well as right upper quadrant abdominal pain. Other complaints include falling down because her legs shake for which she has already had a CT brain with her neurologist , also she drank alcohol last night and is a bariatric surgery patient and is now having weakness. She has been told she has long-haul COVID and vertigo and is currently taking meclizine which she feels is not helping. She states she gets up from the couch, the room spins, then she blacks out and she falls to the ground. During these episodes she has nausea and vomiting. MD Complaint: generalized weakness and difficulty walking Onset (ago): month(s) Duration: intermittent Location: generalized Severity: similar to previous episodes Relieving factors: rest Exacerbating factors: movement Associated symptoms: nausea/vomiting and syncope Related Data Home Medications ?Medication ?Instructions ?Recorded ?Confirmed pantoprazole 40 mg tablet,delayed 40 mg PO 2XD 5 10/01/24 release sucralfate 1 gram tablet 1 g PO 1XD 10/01/24 10/01/24 Previous Rx's ?Medication ?Instructions ?Recorded ondansetron 4 mg disintegrating 4 mg PO Q8H PRN nausea and 10/03/24 tablet vomiting #20 tabs folic acid 3 mg-vit B complex with 1 tab PO QDAY #30 t abs 12/04/24 C-selenium 70 mcg-zinc 15 mg tablet Allergies Allergy/AdvReac Type Severity Reaction Status Date / Time Sulfa (Sulfonamide Allergy Verified 07/16/24 16:53 Antibiotics) Review of Systems Review of Systems Systems Reviewed: All systems reviewed, normal except as documented Past Medical History Past Medical History NEUROLOGIC: Negative Neurological Disorders CARDIAC: Negative Cardiac Disorders or Congestive Heart Failure RESPIRATORY: Negative Chronic Obstructive Pulmonary Disease (COPD) or Asthma GASTROINTESTINAL: Negative Gastrointestinal Disorders or Hepatitis GENITOURINARY: Negative Genitourinary Disorders or Renal Disease REPRODUCTIVE: Negative Pelvic Inflammatory Disease MUSCULOSKELETAL: Negative Musculoskeletal Disorders ENDOCRINE: Positive Endocrine Disorders and Diabetes Mellitus Type 2; Negative Diabetes Mellitus Type 1 HEMATOLOGIC: Negative Blood Disorders or Sickle Cell Disease OTHER HISTORY: Negative Autoimmune Disease, Blood Transfusions, Blood Transfusion Reaction, Anesthesia Reactions, Organ Transplant, Chemotherapy, Radiation Therapy, Hyperbaric Therapy, MRSA, VRSA, Vancomycin-Resistant Enterococci, Human Immunodeficiency Virus (HIV), Chicken Pox, Measles, Mumps, Rubella (Chinese Measles), Pertussis, Clostridium Difficile or Cancer Family History FAMILY HISTORY: Positive Family Respiratory Disorders and Family Cardiac Disorders; Negative Family Psychiatric Problems, Family Gastrointestinal Problems, Family Cancer, Family Surgery or Family Anesthesia Reaction Surgical History SURGICAL: Positive Abdominal Surgery and Bowel Surgery; Negative Cardiac Surgery, Nephrectomy, Joint Replacement, Neurologic Surgery, Mastectomy or Organ Transplant Social History SMOKING STATUS: Current every day smoker ED Exam General Limitations: Present no limitations General appearance: Present alert and anxious Head Head exam: Present atraumatic, normocephalic and normal inspection Eye Eye exam: Present normal appearance and EOMI; Absent nystagmus Respiratory Respiratory exam: Present normal lung sounds bilaterally; Absent respiratory distress Cardiovascular Cardiovascular exam: Present regular rate, normal rhythm, normal heart sounds, +S1 and +S2; Absent systolic murmur Abdominal Exam Abdominal exam: Present soft and tenderness; Absent guarding, rebound or rigidity Abdominal tenderness: Present RUQ Rectal Exam Rectal exam: Present deferred Extremities Exam Extremities exam: Present tenderness Neurological Exam Neurological exam: Present alert and oriented X3 Psychiatric Psychiatric exam: Present anxious Skin Skin exam: Present warm, dry and other (Right-sided abdominal first-degree pabon, from otero soup last night.) Course Course Course Narrative: Labs reveal a normal white count, H&H minimally low. Blood alcohol 320.0 CMP glucose 134, AST 107, ALT normal, Ammonia normal, Amylast 158, Lipase 119, Thiamine <6. Urinalysis Turbid, 1+ ketones, rare bacteria. UDS negative. EKG Sinus rhythm 85, no ST elevation. XR Chest: No active disease. Abd US: Absent gallbladder. Common bile duct 0.9 cm no stones noted. Mild hepatomegaly fatty liver. Patient was given IV hydration as well as Zofran, Thiamine, Folic Acid, Magnesium sulfate. Quality Measures none Orders Category Date Time Status EKG (ED ONLY) *Do not use* NOW Care 12/04/24 11:48 Completed EKG (ED Only) Stat Exams 12/04/24 11:48 Draft US abdomen Stat Exams 12/04/24 11:37 Completed XR chest 1V Stat Exams 12/04/24 11:48 Completed Alcohol, Blood Medical Stat Lab 12/04/24 11:02 Completed Ammonia Stat Lab 12/04/24 11:02 Completed Amylase Stat Lab 12/04/24 11:02 Completed CBC Stat Lab 12/04/24 11:02 Completed CMP [Comprehensive Metabolic Panel] Stat Lab 12/04/24 11:02 Completed Drug Screen,Urine Stat Lab 12/04/24 12:33 Completed Lipase Stat Lab 12/04/24 11:02 Completed Urinalysis Stat Lab 12/04/24 12:33 Completed Vitamin B1 (Thiamine)* Stat Lab 12/04/24 12:00 Completed Folic Acid Med 12/04/24 11:34 Discontinued 1 mg PO X1 ONE Magnesium Sulfate 2 GM Ivpb [Magnesium Sulfate Ivpb] Med 12/04/24 11:34 Discontinued 2 gm in 50 ml IV X1 Ondansetron Inj [Zofran Inj] Med 12/04/24 12:05 Discontinued 4 mg IV X1 ONE Sodium Chloride 0.9% 1000 ml [Ns] 1,000 ml Med 12/04/24 11:34 Discontinued IV 999 mls/hr Thiamine [Vitamin B-1] Med 12/04/24 11:35 Discontinued 100 mg PO X1 ONE As above. Vital Signs Vital signs: Vital Signs Temperature 98.2 F 12/04/24 10:47 Pulse Rate 96 12/04/24 10:47 Respiratory Rate 19 12/04/24 10:47 Blood Pressure 121/75 12/04/24 10:47 Pulse Oximetry (%) 97 12/04/24 10:47 Oxygen Delivery Method Room Air 12/04/24 10:47 Weakness MDM Narrative MDM Narrative:: 59-year-old female presents to the ED with multiple complaints, but the most recent complaint is related to drinking alcohol last night and feeling weak. She has been having nausea and vomiting as well as right upper quadrant abdominal pain. Other complaints include falling down because her legs shake for which she has already had a CT brain with her neurologist , also she drank alcohol last night and is a bariatric surgery patient and is now having weakness. She has been told she has long-haul COVID and vertigo and is currently taking meclizine which she feels is not helping. She states she gets up from the couch, the room spins, then she blacks out and she falls to the ground. During these episodes she has nausea and vomiting. Anxious appearing, normal exam with the exception of RUQ tenderness as well as right sided abdominal 1st degree burn. Labs reveal a normal white count, H&H minimally low. Blood alcohol 320.0 CMP glucose 134, AST 107, ALT normal, Ammonia normal, Amylast 158, Lipase 119, Thiamine <6. Urinalysis Turbid, 1+ ketones, rare bacteria. UDS negative. EKG Sinus rhythm 85, no ST elevation. XR Chest: No active disease. Abd US: Absent gallbladder. Common bile duct 0.9 cm no stones noted. Mild h epatomegaly fatty liver. Patient was given IV hydration as well as Zofran, Thiamine, Folic Acid, Magnesium sulfate. Patient data External records reviewed:: [facility] previous records Clinical information provided by:: patient Social determinants that could affect healthcare access:: none Patient has the following chronic illnesses:: Alcoholism How is presenting disease/condition affected by chronic disease/condition?: exacerbated by Evaluation data The following diagnostics were reviewed and interpreted by me:: lab results, radiology exam(s) and EKG tracing(s) Lab and/or radiology exams considered but not ordered:: As above Interpretation Summary: As above. Medications / Prescriptions Medications or Prescriptions considered but not ordered:: N/A Medication administrations:: Medication Administration History Discontinued Medications Folic Acid (Folic Acid 1 Mg Tablet) 1 mg PO X1 ONE Stop: 12/04/24 11:35 Last Admin: 12/04/24 11:56 Dose: 1 mg Documented By: CARLOTTA Magnesium Sulfate (Magnesium Sulfate Ivpb) 2 gm in 50 mls @ 25 mls/hr IV X1 ONE Stop: 12/04/24 13:33 Last Infusion: 12/04/24 13:59 Dose: Infused Documented By: Admin: 12/04/24 12:02 Dose: 25 mls/hr Documented By: CARLOTTA Sodium Chloride (Ns) 1,000 mls @ 999 mls/hr IV .Q1H1M ONE Stop: 12/04/24 12:34 Last Infusion: 12/04/24 13:59 Dose: Infused Documented By: Admin: 12/04/24 12:02 Dose: 999 mls/hr Documented By: CARLOTTA Ondansetron HCl (Ondansetron Inj 2 Mg/Ml Inj 2 Ml) 4 mg IV X1 ONE; Protocol Stop: 12/04/24 12:06 Last Admin: 12/04/24 12:11 Dose: 4 mg Documented By: SETH Thiamine HCl (Thiamine 100 Mg Tablet) 100 mg PO X1 ONE Stop: 12/04/24 11:36 Last Admin: 12/04/24 11:56 Dose: 100 mg Documented By: DB As above. Consultations Consultation(s) initiated? (list below): No Diagnosis Weakness Differential Diagnosis: anemia, hypoglycemia, sepsis, dehydration and other (Alcohol intoxication, vertigo) Most likely diagnosis given after review of the tests above:: Alcohol intoxication, vertigo, generalized weakness. Admission Indicated Admission indicated?: not indicated Explain why admission is indicated or not indicated:: Stable for discharge. Admission Request Was there a request for admission?: No Disposition Plan Disposition Plan: Discharge Discharge Attestation Discharge Attestation: The patient and all family members were given an opportunity to ask questions and understood the discharge instructions. Discharge instructions specifically effects, indications for sooner follow up or return to the emergency department, and the expected course of current diagnosis. Patient condition: Stable Discharge Plan Plan Patient Disposition: HOME (Self Care) Discharge Disposition comment: Stable Prescriptions/Referrals Prescriptions/Med Rec: New folic acid-B ahaa-F-vxhdw-zinc 3-70-15 mg-mcg-mg tablet 1 tab PO QDAY Qty: 30 0RF No Action sucralfate 1 gram tablet 1 g PO 1XD pantoprazole 40 mg tablet,delayed release (DR/EC) 40 mg PO 2XD ondansetron 4 mg tablet,disintegrating 4 mg PO Q8H PRN (Reason: nausea and vomiting) Qty: 20 0RF Referrals: No Primary/Family,Physician [Primary Care Provider] - In 1 week Problem List Clinical Impression: Weakness generalized, Alcoholic intoxication, Vertigo Patient/Caregiver Discharge Instructions Education Materials: Vertigo Staying Safe, ED Dizziness, Uncertain Cause, ED Alcohol Intoxication Additional Instructions: Follow-up with your primary care physician in 24 to 48 hours. Return to the ED for any new or worsening symptoms. Print Language: Kuwaiti Stand Alone Forms: [employer] Award Info., Patient Portal Info Letter PA/BUILDING CLEANER Supervising Physician PA/BUILDING CLEANER Supervising Physician: Dr. Rogers
--- NOTE | 2024-12-04 11:37 | XR_ITS ---
Examination: Abdomen sonogram, complete Date and time of exam: December 04, 2024 1317 hours INDICATIONS: Right upper abdominal pain onset today. Technique: Multiple real-time grayscale transabdominal sonographic images of the abdomen have been obtained. Findings: Absent gallbladder Common bile duct 0.9 cm no stones Pancreatic head 2.5 cm Aorta not enlarged Liver 17.5 cm fatty infiltration no focal liver lesions Normal hepatopedal portal venous flow Patent IVC Right kidney 10.3 cm cortex 1.5 cm Left kidney 9.5 cm cortex 1.8 cm Mild bilateral renal parenchymal scar formation Spleen 8.3 cm IMPRESSION: Absent gallbladder Common bile duct 0.9 cm no stones noted Mild hepatomegaly fatty liver
--- NOTE | 2024-12-04 11:48 | EKG_ITS ---
[facility] Test Date: 2024-12-04 Pat Name: LIMA SWANSON Department: Room: - Gender: Female International Logistics Coordinator: : 1965 Requested By: Claudia Clark Order Number: [id number] Reading MD: Claudia Clark Measurements Intervals [place] Rate: 85 P: 14 TX: 154 QRS: 44 QRSD: 92 T: 0 QT: 391 QTc: 467 Interpretive Statements SINUS RHYTHM NONSPECIFIC T-WAVE ABNORMALITY Compared to ECG 09/30/2024 15:21:25 Indeterminate axis no longer present Possible ischemia no longer present T-wave abnormality still present /store/S0/[id number].pdf
--- NOTE | 2024-12-04 11:48 | XR_ITS ---
Examination: AP chest single view Technique one AP portable upright chest single view Exam date and time: December 04, 2024 1248 hours INDICATIONS: Coughing one week. FINDINGS: Normal heart size. Lungs are clear. Moderate osteopenia with spinal leads noted IMPRESSION: No active disease
[2024-12-04] MEDS: THIAMINE 100 MG TABLET PO (11:56)
[2024-12-04] MEDS: FOLIC ACID 1 MG TABLET PO (11:56)
[2024-12-04 12:01] LABS: Basophils % (Auto) 0 % (0-2.5); Eosinophils % (Auto) 0 % (0-10); Hematocrit 34.4 % (36.0-46.0); Hemoglobin 11.8 g/dL (12.0-16.0); Immature Granulocytes % (Auto) 1 % (0-0); Immature Granulocytes Auto 0.04 Thou/mm3 (0.00-0.00); Lymphocytes % (Auto) 50 % (10-50); Mean Corpuscular HGB Conc 34.3 g/dl (31.0-37.0); Mean Corpuscular Hemoglobin 30.8 pg (25.0-35.0); Mean Corpuscular Volume 90 fL (80-100); Monocytes # (Auto) 0.4 Thou/mm3 (0.0-0.8); Monocytes % (Auto) 5 % (0-12); Neutrophils # (Auto) 3.5 Thou/mm3 (1.8-7.7); Neutrophils % (Auto) 44 % (37-80); Nucleated Red Blood Cell % 0 /100 WBC (0); Platelet Count 164 Thou/mm3 (140-440); RDW Standard Deviation 54.7 fL (36.4-46.3); Red Blood Count 3.83 Miln/mm3 (4.00-5.20)
[2024-12-04] MEDS: SODIUM CHLORIDE 0.9% 1000 ML 1,000 ML 999 ML IV (12:02)
[2024-12-04] MEDS: Magnesium Sulfate 2 GM Ivpb 2 GM/50 ML BAG IV (12:02)
[2024-12-04] MEDS: ONDANSETRON INJ 2 MG/ML INJ 2 ML 4 MG IV (12:11)
[2024-12-04 12:27] LABS: Ammonia 17 uMol/L (11-32)
[2024-12-04 12:43] LABS: Collection Type, Urine Clean Catch
[2024-12-04 12:43] LABS: Alanine Aminotransferase 39 U/L (10-49); Albumin, Serum 4.2 gm/dL (3.4-4.8); Albumin/Globulin Ratio 1.8 (1.2-2.2); Alkaline Phosphatase 138 U/L (46-116); Amylase 158 U/L (30-118); Anion Gap 14 (7-16); Aspartate Amino Transferase 107 U/L (0-34); BUN/Creatinine Ratio 28 Ratio (12-20); Bilirubin,Total 0.5 mg/dL (0.3-1.2); Blood Urea Nitrogen 14 mg/dL (9-23); Calcium 9.1 mg/dL (8.3-10.6); Calcium (Corrected) 9.1 mg/dL (8.5-10.1); Carbon Dioxide 20.7 mMol/L (20.0-31.0); Chloride 107 mMol/L (98-107); Creatinine (Component) 0.5 mg/dL (0.6-1.3); Estimated Creatinine Clearance 102.8 mL/min (>60); Globulin 2.4 gm/dL (2.3-3.5); Glucose 134 mg/dL (74-106); Lipase 119 U/L (12-53); Osmolality,Calculated 285 (275-295); Potassium 4.1 mMol/L (3.4-5.1); Sodium 142 mMol/L (136-145); Total Protein 6.6 gm/dL (5.7-8.2); eGFR > 60 See Note
[2024-12-04 13:03] LABS: Amorphous Crystals,Urine Present (Absent); Bacteria,Urine Rare; Bilirubin,Urine Negative (Negative); Blood,Urine Negative (Negative); Clarity,Urine Turbid (Clear/Hazy); Color,Urine Yellow (Lt Yel-Yel); Glucose, Urine Negative (Negative); Ketones,Urine 1+ (Negative); Leukocyte Esterase,Urine Negative (Negative); Nitrite,Urine Negative (Negative); Protein,Urine Negative (Neg - Trace); RBC,Urine 2 /hpf (0-3); Specific Gravity,Urine 1.019 (1.001-1.035); Squamous Epithelial Cell,Urine 8 /hpf (0-5); WBC,Urine 1 /hpf (0-5)
[2024-12-04 13:54] LABS: Amphetamine/Methamp Scrn,U Negative (Negative); Barbiturate Screen,Urine Negative (Negative); Benzodiazepines Screen,Urine Negative (Negative); Benzoylecgonine Screen, Ur Negative (Negative); Fentanyl Screen,Urine Negative (Negative); Opiate Screen,Urine Negative (Negative); THC Screen,Urine Negative (Negative)
[2024-12-04 15:12] VITALS: BP 141/82; PULSE 88; RESP 16; TEMP 36.6; O2SAT 99
[2024-12-11 06:32] LABS: Vitamin B1 (Thiamine)* <6 nmol/L (8-30)
== END 2024-12-04 15:13 | disposition home or self-care (01) ==
PROVIDERS: Physician Assistant; Emergency Provider Emergency Medicine
DX: F10.129 Alcohol abuse with intoxication, unspecified (principal); R53.1 Weakness; K76.0 Fatty (change of) liver, not elsewhere classified; R05.9 Cough, unspecified; R94.31 Abnormal electrocardiogram [ECG] [EKG]; Y90.8 Blood alcohol level of 240 mg/100 ml or more
CPT/HCPCS: 36415; 71045; 76700; 80053; 80307; 80320; 81001; 82140; 82150; 83690; 84425; 85025; 93005; 96127; 96365; 96366; 96375; 99284; J2405; J3475; J7030; A9270; G0480

== ENCOUNTER 2025-03-03 20:37 | Inpatient (IN) | payer MEDICAID, SELFPAY ==
[2025-03-03 20:43] VITALS: PULSE 110; RESP 20; O2SAT 100; BMI 24.7
--- NOTE | 2025-03-03 20:51 | PD.EDADULT ---
ED General RME/HPI General Chief complaint: GI Bleed Stated complaint: GI BLEED Time Seen by Provider: 03/03/25 20:42 Arrival date/time: 03/03/25 20:37 CC: Nausea vomiting black diarrhea abdominal pain HPI ongoing for 4 to 5 days. Patient states she has had surgery to remove most of her stomach has these episodes every 3 to 4 months, patiently admits that she is a daily drinker but is cut back last drink was last night, patient states black diarrhea prior history of similar events does take pantoprazole but no other medications. Patient denies chest pain shortness of breath or difficulty breathing speaking in full sentences stating that she is scheduled to go to rehab next week . Related Data Home Medications ?Medication ?Instructions ?Recorded ?Confirmed pantoprazole 40 mg tablet,delayed 40 mg PO 2XD 10/01/24 10/01/24 release sucralfate 1 gram tablet 1 g PO 1XD 10/01/24 10/01/24 Previous Rx's ?Medication ?Instructions ?Recorded ondansetron 4 mg disintegrating 4 mg PO Q8H PRN nausea and 10/03/24 tablet vomiting #20 tabs folic acid 3 mg-vit B complex with 1 tab PO QDAY #30 tabs 12/04/24 C-selenium 70 mcg-zinc 15 mg tablet Allergies Allergy/AdvReac Type Severity Reaction Status Date / Time Sulfa (Sulfonamide Allergy Verified 03/03/25 20:43 Antibiotics) Review of Systems Review of Systems Narrative Review of Systems: GEN: No fever, no chills, no weight loss EYES: No discharge, no visual changes, no pain HEENT: No ear pain, no congestion, no sore throat PULM: No shortness of breath, no cough, no congestion CV: No chest pain, no dyspnea on exertion, no palpitations GI: + nausea, + vomiting, no diarrhea, + pain, no constipation : No frequency, no urgency, no dysuria MUSC/SKEL: No joint pain, no back pain SKIN: No rash PSYCH: No hallucinations, no depression HEME/LYMPH: No easy bleeding or bruising tendencies NEURO: No weakness, no headache Past Medical History Past Medical History NEUROLOGIC: Negative Neurological Disorders CARDIAC: Negative Cardiac Disorders or Congestive Heart Failure RESPIRATORY: Negative Chronic Obstructive Pulmonary Disease (COPD) or Asthma GASTROINTESTINAL: Negative Gastrointestinal Disorders or Hepatitis GENITOURINARY: Negative Genitourinary Disorders or Renal Disease REPRODUCTIVE: Negative Pelvic Inflammatory Disease MUSCULOSKELETAL: Negative Musculoskeletal Disorders ENDOCRINE: Positive Endocrine Disorders and Diabetes Mellitus Type 2; Negative Diabetes Mellitus Type 1 HEMATOLOGIC: Negative Blood Disorders or Sickle Cell Disease OTHER HISTORY: Negative Autoimmune Disease, Blood Transfusions, Blood Transfusion Reaction, Anesthesia Reactions, Organ Transplant, Chemotherapy, Radiation Therapy, Hyperbaric Therapy, MRSA, VRSA, Vancomycin-Resistant Enterococci, Human Immunodeficiency Virus (HIV), Chicken Pox, Measles, Mumps, Rubella (Hungarian Measles), Pertussis, Clostridium Difficile or Cancer Family History FAMILY HISTORY: Positive Family Respiratory Disorders and Family Cardiac Disorders; Negative Family Psychiatric Problems, Family Gastrointestinal Problems, Family Cancer, Family Surgery or Family Anesthesia Reaction Surgical History SURGICAL: Positive Abdominal Surgery and Bowel Surgery; Negative Cardiac Surgery, Nephrectomy, Joint Replacement, Neurologic Surgery, Mastectomy or Organ Transplant Social History SMOKING STATUS: Current every day smoker ED Exam Narrative Physical exam: [General: Disheveled, in mild discomfort but not in any acute distress Head normocephalic HEENT: Eyes pupils are PERRLA EOMs are intact mouth pink dry membranes uvula is midline cracked lips, phonation is normal swallow symmetrical all other subsystems of HEENT are within acceptable limits Neck is supple nontender no JVD no edema Chest equal chest rise nontender to palpation Respiratory: Clear to auscultation no wheezes crackles or rubs CV: Rate rhythm is regular no murmurs rubs or clicks Abdomen is distended secondary to body habitus soft global tenderness without including the epigastrium left upper and right upper quadrants. No masses positive bowel sounds all 4 quadrants GI: Rectum, good rectal tone vault is empty small amount of stool on the vault wall black, grossly guaiac positive. Back: No CVA tenderness no spinous process tenderness from cervical spine thoracic and lumbar spine Skin: Intact no petechiae rash induration ulceration or crepitus Extremities: Moving all extremity against resistance cap refill less than 2 seconds neurosensory intact. No lower extremity edema. Neuro: Awake alert oriented x3 Glascow coma 15 no focal deficits] Course Course Course Narrative: Patient is noted to have a 2 g hematocrit drop in the past 2-1/2 months, guaiac is positive patient's case discussed with Dr. Drummond GI specialist who agrees to consult once the patient admitted for GI bleed. Patient is in agreement with this plan Quality Measures none Orders Category Date Time Status NPO after Midnight ONCE Care 03/03/25 22:17 Active Saline [Insert IV] NOW Care 03/03/25 20:46 Active Consult to Gastroenterology Stat Cons 03/03/25 22:16 Ordered Diet NPO after Midnight Diet 03/04/25 00:01 Active Alcohol, Blood Medical Stat Lab 03/03/25 21:00 Completed B-Type Natriuretic Peptide Stat Lab 03/03/25 21:00 Completed CBC Stat Lab 03/03/25 21:00 Completed Comprehensive Metabolic Panel Stat Lab 03/03/25 21:00 Completed Drug Screen,Urine Stat Lab 03/03/25 20:46 Ordered Lipase Stat Lab 03/03/25 21:00 Completed Magnesium Stat Lab 03/03/25 21:00 Completed Partial Thromboplastin Time Stat Lab 03/03/25 21:00 Completed Prothrombin Time with INR Stat Lab 03/03/25 21:00 Completed Type and Screen Stat Lab 03/03/25 22:29 Ordered Urinalysis Stat Lab 03/03/25 20:46 Ordered Ondansetron Inj [Zofran Inj] Med 03/03/25 20:46 Discontinued 4 mg IVP X1 ONE Pantoprazole Inj [Protonix Inj] Med 03/03/25 22:16 Discontinued 40 mg IVP X1 ONE Pantoprazole/Ns 80Mg IV Premix [Protonix/NS 80mg IV Med 03/03/25 22:17 Discontinued Premix] 80 mg in 100 ml IV Q10H Pantoprazole/Ns 80Mg IV Premix [Protonix/NS 80mg IV Med 03/03/25 22:30 Active Premix] 80 mg in 100 ml IV Q10H Sodium Chloride 0.9% 1000 ml [Ns] 1,000 ml Med 03/03/25 22:17 Active IV 100 mls/hr Sodium Chloride 0.9% 1000 ml [Ns] 1,000 ml Med 03/03/25 20:46 Discontinued IV 999 mls/hr Vital Signs Vital signs: Vital Signs Temperature 97.6 F 03/03/25 20:56 Respiratory Rate 14 03/03/25 20:56 Blood Pressure 122/73 03/03/25 20:56 Pulse Oximetry (%) 97 03/03/25 20:56 Oxygen Delivery Method Room Air 03/03/25 20:56 Discharge Plan Plan Patient Disposition: Other Care w/in Hosp ([facility]) Patient condition on transfer: Stable Prescriptions/Referrals Prescriptions/Med Rec: No Action sucralfate 1 gram tablet 1 g PO 1XD pantoprazole 40 mg tablet,delayed release (DR/EC) 40 mg PO 2XD ondansetron 4 mg tablet,disintegrating 4 mg PO Q8H PRN (Reason: nausea and vomiting) Qty: 20 0RF folic acid-B desp-A-ahoem-zinc 3-70-15 mg-mcg-mg tablet 1 tab PO QDAY Qty: 30 0RF Referrals: No Primary/Family,Physician [Primary Care Provider] - In 1 week Problem List Clinical Impression: GI bleed, Anemia, Transaminitis, Alcoholism Patient/Caregiver Discharge Instructions Print Language: Hong Konger Stand Alone Forms: Arabella Award Info., Patient Portal Info Letter PA/BELLOWS FILLER Supervising Physician PA/BELLOWS FILLER Supervising Physician: Eyal Arroyo ENP [facility] Clinical Information Provided by patient and EMS Medical [facility] Chronic Illness/Social Conditions which may negatively complicate care or outcome(s)-explain: ETOH/drugs/substance abuse Lab Interpretation Lab(s) interpretation(s): CBC shows no leukocytosis H&H of 9.8 and 30.6 respectively note. Patient had 11 g hematocrit in November of this year Coags show a PTT of 21.9 CMP shows sodium 140 potassium 3.2 CO2 of 19.7 chloride 104 BUN of 12 creatinine of 0.5 and glucose of 113 T. bili is normal, AST is 389 ALT is 110 alk phos is 153. BNP is negative Alcohol level at 254. Lipase is within acceptable limits Medication Administration(s) Medication Administration History Sodium Chloride (Ns) 1,000 mls @ 100 mls/hr IV .Q10H [facility] Stop: 04/02/25 22:16 Pantoprazole Sodium (Protonix/Ns 80mg Iv Premix) 80 mg in 100 mls @ 10 mls/hr IV Q10H [facility] Stop: 03/04/25 08:29 Discontinued Medications Sodium Chloride (Ns) 1,000 mls @ 999 mls/hr IV .Q1H1M ONE Stop: 03/03/25 21:46 Last Infusion: 03/03/25 21:46 Dose: Infused Documented By: Admin: 03/03/25 21:08 Dose: 999 mls/hr Documented By: AVIS Pantoprazole Sodium (Protonix/Ns 80mg Iv Premix) 80 mg in 100 mls @ 10 mls/hr IV Q10H [place] Stop: 03/06/25 20:16 Last Admin: 03/03/25 22:28 Dose: Not Given Documented By: RAMANA Non-Admin Reason: Discontinued Ondansetron HCl (Ondansetron Inj 2 Mg/Ml Inj 2 Ml) 4 mg IVP X1 ONE; Protocol Stop: 03/03/25 20:47 Last Admin: 03/03/25 21:08 Dose: 4 mg Documented By: AVIS Pantoprazole Sodium (Pantoprazole Inj 40 Mg Vial) 40 mg IVP X1 ONE Stop: 03/03/25 22:17
[2025-03-03 20:56] VITALS: BP 122/73; PULSE 97; RESP 14; TEMP 36.4; O2SAT 97
[2025-03-03] MEDS: ONDANSETRON INJ 2 MG/ML INJ 2 ML 4 MG IVP (21:08)
[2025-03-03] MEDS: SODIUM CHLORIDE 0.9% 1000 ML 1,000 ML 999 ML IV (21:08)
[2025-03-03 21:16] LABS: Basophils # (Auto) 0.0 Thou/mm3 (0.0-0.2); Basophils % (Auto) 1 % (0-2.5); Eosinophils # (Auto) 0.0 Thou/mm3 (0.0-0.5); Eosinophils % (Auto) 0 % (0-10); Hematocrit 30.6 % (36.0-46.0); Hemoglobin 9.8 g/dL (12.0-16.0); Immature Granulocytes Auto 0.03 Thou/mm3 (0.00-0.00); Lymphocytes # (Auto) 2.9 Thou/mm3 (1.0-4.8); Lymphocytes % (Auto) 45 % (10-50); Mean Corpuscular HGB Conc 32.0 g/dl (31.0-37.0); Mean Corpuscular Hemoglobin 28.7 pg (25.0-35.0); Mean Corpuscular Volume 90 fL (80-100); Monocytes # (Auto) 0.5 Thou/mm3 (0.0-0.8); Monocytes % (Auto) 8 % (0-12); Neutrophils # (Auto) 3.0 Thou/mm3 (1.8-7.7); Neutrophils % (Auto) 46 % (37-80); Nucleated Red Blood Cell # 0.00 Thou/mm3 (0.00-0.00); Nucleated Red Blood Cell % 0 /100 WBC (0); Platelet Count 244 Thou/mm3 (140-440); RDW Standard Deviation 72.4 fL (36.4-46.3); Red Blood Count 3.41 Miln/mm3 (4.00-5.20); White Blood Count 6.4 Thou/mm3 (3.6-11.0)
[2025-03-03 21:27] LABS: INR 1.0 (0.9-1.3); Partial Thromboplastin Time 21.9 Seconds (22.0-36.0); Prothrombin Time 11.1 Seconds (9.0-12.2)
[2025-03-03 21:38] LABS: B-Type Natriuretic Peptide < 20 pg/mL (0-100)
[2025-03-03 21:53] LABS: Alanine Aminotransferase 110 U/L (10-49); Albumin, Serum 3.8 gm/dL (3.4-4.8); Albumin/Globulin Ratio 1.5 (1.2-2.2); Alcohol, Blood Medical 254.6 mg/dL (0-10.0); Alkaline Phosphatase 153 U/L (46-116); Anion Gap 16 (7-16); Aspartate Amino Transferase 389 U/L (0-34); BUN/Creatinine Ratio 24 Ratio (12-20); Bilirubin,Total 1.0 mg/dL (0.3-1.2); Blood Urea Nitrogen 12 mg/dL (9-23); Calcium 9.5 mg/dL (8.3-10.6); Calcium (Corrected) 9.7 mg/dL (8.5-10.1); Carbon Dioxide 19.7 mMol/L (20.0-31.0); Chloride 104 mMol/L (98-107); Creatinine (Component) 0.5 mg/dL (0.6-1.3); Estimated Creatinine Clearance 101.8 mL/min (>60); Globulin 2.6 gm/dL (2.3-3.5); Glucose 113 mg/dL (74-106); Magnesium 1.6 mg/dL (1.6-2.6); Osmolality,Calculated 280 (275-295); Potassium 3.2 mMol/L (3.4-5.1); Sodium 140 mMol/L (136-145); Total Protein 6.4 gm/dL (5.7-8.2); eGFR > 60 See Note
[2025-03-03 22:15] LABS: Lipase 52 U/L (12-53)
[2025-03-03 23:00] LABS: OBS Performed By CASTR1; OBS QC OK? Yes; Occult Blood, Stool Positive (Negative)
[2025-03-03] MEDS: SODIUM CHLORIDE 0.9% 1000 ML 1,000 ML 100 ML IV (23:01)
[2025-03-03] MEDS: PANTOPRAZOLE/NS 80MG IV PREMIX 80 MG/100 ML BAG 10 MG IV (23:03)
--- NOTE | 2025-03-03 23:33 | XR_ITS ---
Examination: CT chest, without intravenous contrast. CT abdomen, without intravenous contrast. CT pelvis, without intravenous contrast. 2-D sagittal and coronal reconstructions. 3-D reconstructions. Date and time of exam:March 04, 2025 0151 hours INDICATIONS: Chest pain and abdominal pain nausea vomiting diarrhea for 5 days CTDI vol (mgy) 7.68. DLP (MGycm)539. Technique: Multiple CT images, 3.0 mm slice thickness, obtained chest, abdomen, pelvis, with the high-resolution 64 slice scanner.. Sagittal and coronal 2-D reconstructions are obtained. 3-D reconstructions Low dose protocols were performed. One or more of the following dose reduction techniques were used; automated exposure control, adjustment of the mA and/or KV according to patient size, use of iterative reconstruction technique. Findings: Thoracic aorta pulmonary arteries appear intact on this noncontrast study No paratracheal tracheobronchial or bronchopulmonary adenopathy. No pneumonia or pulmonary edema 7 mm nodule in the left lower lobe image 128 Severe diffuse fatty infiltration throughout the liver with hepatomegaly 22 cm Absent gallbladder Gastric surgical clips No pancreatic mass No renal or ureteral calculi, no hydronephrosis No bowel obstruction No pericecal inflammatory change Findings of prior hernia repair No diverticulitis Absent uterus Urinary bladder intact Prominent osteopenia with moderate disc narrowing L5-S1 IMPRESSION: 7 mm nodule in the left lower lobe, recommend 6 month follow-up CT chest without contrast Hepatomegaly with severe diffuse fatty infiltration throughout the liver No acute process in the chest abdomen or pelvis
[2025-03-04] VITALS (22 sets, daily range): BP systolic 114–179; BP diastolic 66–115; PULSE 72–101; RESP 16–96; TEMP 36.2–36.8; O2SAT 92–100; BMI 26.2
[2025-03-04] MEDS: Magnesium Sulfate 4 GM Ivpb 4 GM/50 ML BAG IV (00:02)
[2025-03-04 00:03] LABS: Phosphorous 2.7 mg/dL (2.4-5.1)
[2025-03-04] MEDS: THIAMINE 100 MG TABLET PO (00:50)
[2025-03-04] MEDS: OCTREOTIDE ACET INJ 50 mCg/ML VIAL IV (00:51)
[2025-03-04 00:58] LABS: Troponin I < 0.020 ng/mL (0.0-0.045)
--- NOTE | 2025-03-04 00:59 | ESHP_ITS ---
Documentation for date of: 03/04/25 [facility] History of Present Illness Chief complaint: Nausea, vomiting, black diarrhea, and abdominal pain x5 days History of present illness: 59-year-old female who presents with 5 days of persistent nausea, vomiting, black diarrhea, and strip-like abdominal pain. Vomiting is frequent, non-bloody, yellow/white in color, and occurs with any oral intake including water. She is unable to tolerate food or fluids and stopped eating entirely after vomiting a chicken sandwich earlier today. She reports multiple episodes of black, loose stool daily with urgency and occasional incontinence, most recently this morning. She describes constant dizziness and fell twice last night without head trauma or LOC, attributing it to leg weakness. She reports intermittent chest pain and dyspnea but denies persistent symptoms. She last consumed alcohol just before EMS arrival and reports drinking 3?4 shots daily. Her EtOH level in ED was 254. She is scheduled to enter alcohol rehab soon and has a history of relapse after short periods of sobriety. CIWA score is 16 on presentation. Surgical history includes sleeve gastrectomy revised to gastric bypass at [facility], cholecystectomy, and sepsis post-bladder surgery. She has a history of anemia, fatty liver, resolved T2DM, and depression. She reports right-sided rib/waist pain with mild rash noted and significant rebound/guarding. She reports childhood chickenpox and VZV IgG is being checked. ED Course * NPO * Protonix drip * Octreotide bolus + drip * Thiamine, folic acid started * Electrolyte repletion in progress * VZV IgG ordered (due to possible zoster) * CT ordered for abd pain and EtOH use * GI (Dr. Drummond) to scope in AM * [facility] protocol started ROS: * GI: Nausea, vomiting, melena, abd pain * Constitutional: Fatigue, dizziness, falls x2, no fevers * Neuro: No LOC, no focal deficits, tremors * CV: Intermittent CP, no palpitations * Resp: Transient SOB * Psych: Depression, poor appetite, no hallucinations or seizures * Derm: Mild rash over right chest, tender * : No urinary symptoms * HEENT: No vision changes, sore throat * MSK: Gait instability PMH: * Alcohol use disorder * Depression * Fatty liver disease * Resolved type 2 diabetes * Anemia (prior) PSH: * Sleeve gastrectomy --> revised to gastric bypass * Cholecystectomy * Bladder surgery (complicated by sepsis) Medications (per patient): * Metoprolol * Trazodone (PRN sleep) * Meclizine * Antidepressant (recently switched, unspecified) * Disulfiram or similar (stopped after resuming alcohol) * Occasional Tylenol * No NSAIDs Allergies: * NKDA Social History: * Lives with * Scheduled for alcohol rehab * Alcohol: 3?4 shots daily; last drink before EMS arrival * Tobacco: 10?12 cigarettes/day * Denies illicit drug use Family History: * Non-contributory per patient Exam Vital Signs Temp Pulse Resp BP Pulse Ox O2 Del Method 97.6 F 97 14 122/73 97 Room Air 03/03/25 20:56 03/03/25 20:56 03/03/25 20:56 03/03/25 20:56 03/03/25 20:56 03/03/25 20:56 Narrative Exam General: Awake, alert, disheveled, mild distress HEENT: Dry mucosa, no scleral icterus CV: RRR, no murmurs Pulm: Clear to auscultation bilaterally Abdomen: Tender to palpation in right upper/lower quadrant with rebound and guarding near rib/waistline Neuro: A&O x3, no focal deficits Skin: Mild rash on chest started 2 months ago Ext: No edema Psych: Sad affect; tearful at times; cooperative Results: Labs 03/04/25 04:27 03/04/25 04:27 Labs: Short CBC 03/03/25 Range/Units 21:00 WBC 6.4 (3.6-11.0) Thou/mm3 Hgb 9.8 L (12.0-16.0) g/dL Hct 30.6 L (36.0-46.0) % Plt Count 244 (140-440) Thou/mm3 BMP 03/03/25 21:00 Sodium 140 Potassium 3.2 L Chloride 104 Carbon Dioxide 19.7 L BUN 12 Creatinine 0.5 L Glucose 113 H Calcium 9.5 Cardiac Enzymes 03/04/25 Range/Units 00:35 Troponin I < 0.020 (0.0-0.045) ng/mL Liver Function 03/03/25 Range/Units 21:00 Total Bilirubin 1.0 (0.3-1.2) mg/dL AST 389 H (0-34) U/L ALT 110 H (10-49) U/L Alkaline Phosphatase 153 H (46-116) U/L Albumin 3.8 (3.4-4.8) gm/dL Quality Measures Quality Measures VTE prophylaxis Medications Home Medications and Allergies Home Medications ?Medication ?Instructions ?Recorded ?Confirmed ?Type pantoprazole 40 mg tablet,delayed 40 mg PO 2XD 5 10/01/24 History release sucralfate 1 gram tablet 1 g PO 1XD 10/01/24 10/01/24 History Allergies Allergy/AdvReac Type Severity Reaction Status Date / Time Sulfa (Sulfonamide Allergy Verified 03/03/25 20:43 Antibiotics) Visit Medications Acetaminophen (Acetaminophen 325 Mg Tablet) 650 mg PO Q6H PRN PRN Reason: PAIN SCALE 1-3 (mild Stop: 04/02/25 23:16 Hydrocodone Bitart/Acetaminophen (Hydrocodone/Apap 5/325 Tablet) 1 tab PO Q4HR PRN PRN Reason: PAIN SCALE 4-6 (Moderate Stop: 03/08/25 23:16 Diazepam (Diazepam Inj 5 Mg/Ml Vial 2 Ml) 2.5 mg IVP Q2HR PRN PRN Reason: CIWA SCORE 8-13 Stop: 03/08/25 23:21 Diazepam (Diazepam Inj 5 Mg/Ml Vial 2 Ml) 5 mg IVP Q2HR PRN PRN Reason: CIWA SCORE 14-19 Stop: 03/08/25 23:21 Diazepam (Diazepam Inj 5 Mg/Ml Vial 2 Ml) 10 mg IVP Q2HR PRN PRN Reason: CIWA SCORE 20-25 Stop: 03/08/25 23:21 Folic Acid (Folic Acid 1 Mg Tablet) 1 mg PO QDAY [facility] Stop: 04/03/25 08:59 Sodium Chloride (Ns) 1,000 mls @ 100 mls/hr IV .Q10H [facility] Stop: 04/02/25 22:16 Last Admin: 03/03/25 23:01 Dose: 100 mls/hr Pantoprazole Sodium (Protonix/Ns 80mg Iv Premix) 80 mg in 100 mls @ 10 mls/hr IV Q10H [place] Stop: 03/04/25 08:29 Last Admin: 03/03/25 23:03 Dose: 10 mls/hr Magnesium Sulfate (Magnesium Sulfate Ivpb) 4 gm in 50 mls @ 12.5 mls/hr IV X1 ONE Stop: 03/04/25 03:04 Last Admin: 03/04/25 00:02 Dose: 12.5 mls/hr Potassium Phosphate 22.5 mmol/ (Sodium Chloride) 507.5 mls @ 82.778 mls/hr IV X1 ONE Stop: 03/04/25 05:12 Octreotide Acetate 1,000 mcg/ (Sodium Chloride) 102 mls @ 5.1 mls/hr IV .Q20H [facility]; Protocol Stop: 03/08/25 23:24 Octreotide Acetate 1,000 mcg/ (Sodium Chloride) 102 mls @ 5.1 mls/hr IV .Q20H [facility]; Protocol Stop: 03/04/25 19:44 Ibuprofen (Ibuprofen Tab 400 Mg Tablet) 400 mg PO Q6HR PRN PRN Reason: Fever > 100.4 Stop: 04/02/25 23:16 Ondansetron HCl (Ondansetron Inj 2 Mg/Ml Inj 2 Ml) 4 mg IVP Q6H PRN; Protocol PRN Reason: NAUSEA OR VOMITING Stop: 04/02/25 23:16 Pantoprazole Sodium (Pantoprazole Inj 40 Mg Vial) 40 mg IVP QDAY [facility] Stop: 04/03/25 08:59 Thiamine HCl (Thiamine 100 Mg Tablet) 100 mg PO QDAY [facility] Stop: 04/03/25 08:59 Discontinued Medications Sodium Chloride (Ns) 1,000 mls @ 999 mls/hr IV .Q1H1M ONE Stop: 03/03/25 21:46 Last Infusion: 03/03/25 21:46 Dose: Infused Pantoprazole Sodium (Protonix/Ns 80mg Iv Premix) 80 mg in 100 mls @ 10 mls/hr IV Q10H [place] Stop: 03/06/25 20:16 Last Admin: 03/03/25 22:28 Dose: Not Given Thiamine HCl 100 mg/ Sodium (Chloride) 101 mls @ 202 mls/hr IV X1 ONE Stop: 03/04/25 00:47 Octreotide Acetate (Octreotide Acet Inj 50 Mcg/Ml Vial) 50 mcg IV X1 ONE Stop: 03/04/25 00:33 Last Admin: 03/04/25 00:51 Dose: 50 mcg Ondansetron HCl (Ondansetron Inj 2 Mg/Ml Inj 2 Ml) 4 mg IVP X1 ONE; Protocol Stop: 03/03/25 20:47 Last Admin: 03/03/25 21:08 Dose: 4 mg Pantoprazole Sodium (Pantoprazole Inj 40 Mg Vial) 40 mg IVP X1 ONE Stop: 03/03/25 22:17 Last Admin: 03/03/25 22:58 Dose: 40 mg Thiamine HCl (Thiamine 100 Mg Tablet) 100 mg PO X1 ONE Stop: 03/04/25 00:18 Last Admin: 03/04/25 00:50 Dose: 100 mg Assessment & Plan Plan 59-year-old female with history of complicated bariatric surgery and alcohol use disorder presents with 5 days of nausea, vomiting, melena, and abdominal pain; found to have H/H drop, transaminitis, positive stool guaiac, and elevated CIWA score concerning for upper GI bleed and alcohol withdrawal; admitted for EGD and medical management. #GI Bleed- likely upper Patient presents with melena, nausea/vomiting, H/H drop (9.8/30.6 from baseline 11.8/34.4), and history of gastric bypass. Positive stool guaiac and occult blood test. possible post-bariatric anastomotic ulcer vs marginal ulcer exacerbated by alcohol. Plan: * GI consulted (Dr. Drummond) --> EGD planned for AM * NPO status maintained * Continue Protonix drip * Continue Octreotide drip * IV fluids for volume support * Monitor H/H * Hold any NSAIDs, anticoagulants (none reported) #Acute liver injury #Hypoalbuminemia AST 389, ALT 110, ALP 153. Ratio >2:1 suggests alcoholic hepatitis. Lipase normal. No current jaundice or encephalopathy. Occasional acetaminophen use. Plan: * Trend LFTs q24h * Consider Hepatitis A/B/C panel to rule out viral causes if LFTs persistently elevated * Avoid hepatotoxins, Tylenol * Supportive care and EtOH cessation # Alcohol Withdrawal (CIWA 16) EtOH level 254 on arrival, daily use (3?4 shots/day), last drink just before EMS arrival. Patient has prior history of detox and relapse. Currently symptomatic with tremors and anxiety, high risk for severe withdrawal. Plan: * Start CIWA protocol * Monitor vitals q6h, neuro checks * Replete thiamine, folate to prevent Wernicke?s * Monitor for signs of hallucinosis or DTs * Social work consult to help coordinate rehab placement #Acute Anemia (multifactorial, GI loss + nutritional) Hgb dropped 2g in 3 months, now 9.8. Likely due to chronic upper GI bleeding, poor nutrition, and possibly anemia of chronic disease. Plan: * Continue serial CBC monitoring * Iron panel, ferritin, B12, folate ordered * Transfuse PRBC if Hgb <7 or symptomatic # Electrolyte Abnormalities K 3.2, Mg 1.6, Phos 2.7 likely due to vomiting, poor PO intake, and early EtOH withdrawal. Low Mg can worsen withdrawal and arrhythmia risk. Plan: * Replete K, Mg, Phos per protocol * Monitor BMP, Mg, and Phos daily * Continue IV fluids with appropriate additives # Suspected Herpes Zoster Patient reports pain and visible rash over right rib/waist area, tender with rebound and guarding. Has hx of chickenpox. May be pre-eruption or early shingles. Plan: * VZV IgG ordered * Monitor rash evolution * Gabapentin or Tylenol for pain control # Depression (chronic, poorly managed) History of major depressive disorder, recent medication change (off Zoloft), reports worsening mood, tearfulness, hopelessness, but no suicidal ideation. Depression likely contributes to EtOH relapse. Plan: * Screen for suicidal ideation, mood disorder severity * Consider restarting or adjusting antidepressant when medically stable * Encourage engagement with mental health services post-discharge * No suicidal/homicidal ideations at this time # Fall Risk / Gait Instability 2 falls in past 24h without LOC or trauma. Feels legs ?give out.? Likely multifactorial: deconditioning, hypotension, electrolyte imbalances, EtOH. Plan: * Fall precautions may be needed * Daily PT/OT evaluation once stable * Assess orthostatics if needed * Replete electrolytes * Daily neuro checks * Consider CT head only if neuro symptoms develop Health Maintenance: Disposition: Medicine floor; GI procedure planned Feeding: NPO, IVF maintenance DVT prophylaxis: SCDs GI prophylaxis: Protonix drip Code Status: Full Code ----- Plan discussed with attending physician Dr. Tesfaye Campuzano MD PGY-1 Internal Medicine Attending Provider Attestation/Addendum Attending Provider Attestation/Addendum After examination of the patient and review of the clinical data I feel that this patient needs admission to the hospital for further treatment/evaluation. I Agueda Torres MD, attest that I was physically present for capellan portions of evaluation, and examined patient, labs and imagings and plan of care were discussed with IM residents team, and I agree with the findings and plans documented above.
[2025-03-04] MEDS: OCTREOTIDE ACET INJ 1,000 MCG in SODIUM CHLORIDE 0.9% 100 ML 5.1 MCG IV ×2 (01:04→19:44)
[2025-03-04] MEDS: THIAMINE INJ 100 MG in SODIUM CHLORIDE 0.9% 100 ML 202 MG IV (01:10)
[2025-03-04] MEDS: POT PHOS 15 mMol in NS 250 ML 15 MMOL/250 ML BAG 62.5 MMOL IV (02:32)
[2025-03-04 02:40] LABS: Folate 3.74 ng/mL (>5.38)
[2025-03-04 02:45] LABS: Collection Type, Urine Clean Catch; RBC,Urine 0 /hpf (0-3)
[2025-03-04 02:52] LABS: Bilirubin,Urine 1+ (Negative); Blood,Urine Negative (Negative); Clarity,Urine Clear (Clear/Hazy); Color,Urine Yellow (Lt Yel-Yel); Glucose, Urine Negative (Negative); Hyaline Casts,Urine < 1 /hpf (0-1); Ketones,Urine 2+ (Negative); Leukocyte Esterase,Urine Negative (Negative); Nitrite,Urine Negative (Negative); PH,Urine 6.0 (5.0-7.0); Protein,Urine Trace (Neg - Trace); Specific Gravity,Urine 1.031 (1.001-1.035); Squamous Epithelial Cell,Urine 2 /hpf (0-5); Urobilinogen,Urine 8.0 mg/dL (0.0-1.0); WBC,Urine 1 /hpf (0-5)
--- NOTE | 2025-03-04 02:54 | PRELIM_ITS ---
CT scan of the chest, abdomen and pelvis without intravenous contrast (axial sections with sagittal and coronal reformats) March 04, 2025 0151 hours Clinical History: R/o pancreatitis, Epigastric pain No prior study is available for comparison. Findings: Bibasilar dependent atelectasis is present. There is no pleural effusion or pneumothorax. The aorta is unremarkable on this noncontrast study. No evidence of mediastinal mass or lymphadenopathy. There is no pericardial effusion. Fatty infiltration of the liver is noted. The gallbladder is surgically absent. The spleen, pancreas, adrenals and kidneys are unremarkable on this noncontrast study. Gastric sleeve surgery changes are noted. Bowel anastomotic sutures are seen in the left upper quadrant. No evidence of bowel obstruction. The appendix is not visualized. The urinary bladder is unremarkable. There is no free fluid or free air. Hernia mesh is noted along the anterior abdominal wall. Postoperative changes are noted in the anterior abdominal wall. Neuro stimulator device is noted. The osseous structures are unremarkable. Impression: No evidence of acute intrathoracic, intraabdominal or pelvic pathology on this noncontrast study. Report Electronically Signed By: Solomon Polanco 03/04/2025 2:54:24 AM [EST]
[2025-03-04 02:56] LABS: Amphetamine/Methamp Scrn,U Negative (Negative); Barbiturate Screen,Urine Negative (Negative); Benzodiazepines Screen,Urine Negative (Negative); Benzoylecgonine Screen, Ur Negative (Negative); Fentanyl Screen,Urine Negative (Negative); Opiate Screen,Urine Negative (Negative); THC Screen,Urine Negative (Negative)
[2025-03-04 04:59] LABS: Basophils # (Auto) 0.0 Thou/mm3 (0.0-0.2); Basophils % (Auto) 0 % (0-2.5); Eosinophils # (Auto) 0.0 Thou/mm3 (0.0-0.5); Eosinophils % (Auto) 0 % (0-10); Hematocrit 27.9 % (36.0-46.0); Immature Granulocytes Auto 0.05 Thou/mm3 (0.00-0.00); Lymphocytes # (Auto) 0.9 Thou/mm3 (1.0-4.8); Lymphocytes % (Auto) 12 % (10-50); Mean Corpuscular HGB Conc 31.2 g/dl (31.0-37.0); Mean Corpuscular Hemoglobin 29.1 pg (25.0-35.0); Mean Corpuscular Volume 93 fL (80-100); Monocytes # (Auto) 0.7 Thou/mm3 (0.0-0.8); Monocytes % (Auto) 10 % (0-12); Neutrophils # (Auto) 5.4 Thou/mm3 (1.8-7.7); Neutrophils % (Auto) 77 % (37-80); Nucleated Red Blood Cell # 0.00 Thou/mm3 (0.00-0.00); Nucleated Red Blood Cell % 0 /100 WBC (0); Platelet Count 199 Thou/mm3 (140-440); RDW Standard Deviation 76.1 fL (36.4-46.3); Red Blood Count 2.99 Miln/mm3 (4.00-5.20); White Blood Count 7.0 Thou/mm3 (3.6-11.0)
[2025-03-04 05:05] LABS: Hemoglobin 8.7 g/dL (12.0-16.0)
[2025-03-04] MEDS: HYDROcodone/APAP 5/325 TABLET 1 TAB PO (05:05)
[2025-03-04 05:17] LABS: Alanine Aminotransferase 98 U/L (10-49); Albumin, Serum 3.2 gm/dL (3.4-4.8); Albumin/Globulin Ratio 1.5 (1.2-2.2); Alkaline Phosphatase 131 U/L (46-116); Anion Gap 14 (7-16); Aspartate Amino Transferase 353 U/L (0-34); BUN/Creatinine Ratio 18 Ratio (12-20); Bilirubin,Total 1.2 mg/dL (0.3-1.2); Blood Urea Nitrogen 9 mg/dL (9-23); Calcium 7.9 mg/dL (8.3-10.6); Calcium (Corrected) 8.5 mg/dL (8.5-10.1); Carbon Dioxide 18.7 mMol/L (20.0-31.0); Chloride 108 mMol/L (98-107); Creatinine (Component) 0.5 mg/dL (0.6-1.3); Estimated Creatinine Clearance 101.8 mL/min (>60); Globulin 2.1 gm/dL (2.3-3.5); Glucose 89 mg/dL (74-106); Magnesium 2.5 mg/dL (1.6-2.6); Osmolality,Calculated 278 (275-295); Phosphorous 5.0 mg/dL (2.4-5.1); Potassium 4.2 mMol/L (3.4-5.1); Sodium 141 mMol/L (136-145); Total Protein 5.3 gm/dL (5.7-8.2); eGFR > 60 See Note
[2025-03-04 06:23] LABS: Ferritin 29 ng/mL (7.3-270.7)
[2025-03-04 07:11] LABS: Vitamin B12 485 pg/mL (211-911)
[2025-03-04] MEDS: DIAZEPAM INJ 5 MG/ML VIAL 2 ML 2.5 MG IVP ×3 (07:53→15:22)
[2025-03-04] MEDS: SODIUM CHLORIDE 0.9% 1000 ML 1,000 ML 100 ML IV ×2 (08:41→19:42)
[2025-03-04] MEDS: THIAMINE INJ 100 MG/ML VIAL 2 ML IVP (08:41)
[2025-03-04] MEDS: FOLIC ACID INJ 1 MG/0.2 ML IVP (08:54)
[2025-03-04] MEDS: cefTRIAXone/D5w 1gm IV premix 1 GM/50 ML BAG IV (13:03)
[2025-03-04] MEDS: MORPHINE SULF INJ 10 MG/ML VIAL IVP (13:13)
--- NOTE | 2025-03-04 16:15 | ESPR_ITS ---
<Statement entered by Nichole Abbott MD - 03/05/25 17:08> Patient was seen and examined at bedside. I agree on the assessment and plan on this note as documented by resident Dorene Wang PGY1. Patient continues to require IV diazepam for CIWA protocol, scheduled for EGD today. We will continue with Protonix twice daily and octreotide drip, there is high suspicion of upper GI bleed, the patient is on ceftriaxone for SBP prophylaxis. Currently patient does not seem to be in active delirium tremens. Otherwise hemoglobin is stable, no tachycardia or hypotension noted. Patient does have history of herpes zoster, rash site was observed, no oral eruption noted, patient had shingles about 1 month ago for which she used [id number] cortisone cream and her symptoms have resolved, she does have diaphoresis and neuropathic pain currently. Physical therapy unable to evaluate the patient due to underlying alcohol withdrawal. Patient's disposition telemetry, pending EGD. Case discussed with attending Dr. Mayra Abbott MD PGY-2 Documentation for date of: 03/04/25 Subjective Subjective Interval history: 59-year-old female past medical history of alcohol use disorder, depression, fatty liver disease, resolved type 2 DM s/p revised gastric bypass. Presented to ED with with 5 days of nausea vomiting, black loose stools, with daily urgency and occasional incontinence, abdominal pain, dizziness, fall attributed to leg weakness, with no loss of consciousness. Admitted for possible upper GI bleed, alcohol withdrawal management. Overnight Patient received diazepam for agitation and alcohol withdrawal.Patient was given IV fluids, Ondansetron and Protonix for dehydration, nausea and vomiting. GI was consulted for possible upper GI bleed, plan EGD this afternoon. Patient made n.p.o. Today Patient was seen and examined at bedside. She reported 1 episode of nonbloody, nonbilious vomiting this morning. Patient mentioned that she feels relaxed after diazepam was administered. However she still endorse mild headache, tremor, mild anxiety, agitation, negative tactile, negative auditory and visual hallucinations.CIWA score was 7. Patient still n.p.o, possibly EGD today. Exam Vital Signs Temp Pulse Resp BP Pulse Ox O2 Del Method O2 Flow Rate 97.2 F 83 18 141/66 H 96 Room Air 2 03/04/25 12:00 03/04/25 12:00 03/04/25 12:00 03/04/25 12:00 03/04/25 12:00 03/04/25 12:00 03/04/25 07:10 Narrative Exam Physical Exam: General: Alert, disheveled, mild distress Skin: , very dry, dry crusty rash midchest HEENT: Normocephalic, atraumatic: Normal conjunctiva, PERRL.Dry mouth Cardiovascular: Regular rate and rhythm, no murmur, +S1/S2. Respiratory: Lungs are clear to auscultation, respirations unlabored, no crackles, no wheezing. Gastrointestinal: Soft, mid epigastic area tender to palpation, rebound tenderness Extremities: No edema, no cyanosis, no clubbing. 2+ radial pulse bilaterally, 2+ pedal pulse bilaterally. Neuro: A&Ox3, No focal deficits observed. Conversant, moving all extremities. No overt cerebellar signs/incoordination. Psychiatric: Sad affect, cooperative. Objective Labs 03/05/25 05:30 03/05/25 05:30 Labs: Laboratory Results - last 24 hr 03/03/25 03/03/25 03/03/25 21:00 22:30 22:43 WBC 6.4 RBC 3.41 L Hgb 9.8 L Hct 30.6 L MCV 90 MCH 28.7 MCHC 32.0 RDW Std Deviation 72.4 H Plt Count 244 Neut % (Auto) 46 Lymph % (Auto) 45 Glenn % (Auto) 8 Eos % (Auto) 0 Baso % (Auto) 1 Neut # (Auto) 3.0 Lymph # (Auto) 2.9 Glenn # (Auto) 0.5 Eos # (Auto) 0.0 Baso # (Auto) 0.0 Immature Gran # (Auto) 0.03 H Absolute Nucleated RBC 0.00 Immature Gran % 1 H Nucleated RBC % 0 PT 11.1 INR 1.0 APTT 21.9 L Sodium 140 Potassium 3.2 L Chloride 104 Carbon Dioxide 19.7 L Anion Gap 16 BUN 12 Creatinine 0.5 L Estim Creat Clear Calc 101.8 eGFR > 60 BUN/Creatinine Ratio 24 H Glucose 113 H Calculated Osmolality 280 Calcium 9.5 Corrected Calcium 9.7 Phosphorus 2.7 Magnesium 1.6 Ferritin Total Bilirubin 1.0 AST 389 H ALT 110 H Alkaline Phosphatase 153 H Troponin I B-Natriuretic Peptide < 20 Total Protein 6.4 Albumin 3.8 Globulin 2.6 Albumin/Globulin Ratio 1.5 Lipase 52 Vitamin B12 Folate Ur Collection Type Urine Color Urine Clarity Urine pH Ur Specific [place] Urine Protein Urine Glucose (UA) Urine Ketones Urine Blood Urine Nitrite Urine Bilirubin Urine Urobilinogen (Auto) Ur Leukocyte Esterase Urine RBC Urine WBC Ur Squamous Epith Cells Urine Bacteria Hyaline Casts Stool Occult Blood Positive A Urine Opiates Screen Urine Fentanyl Screen Ur Barbiturates Screen U Amphetamin/Meth Scrn U Benzodiazepines Scrn U Cocaine Metab Screen U Marijuana (THC) Screen Ethyl Alcohol 254.6 H Blood Type O Negative Antibody Screen NEGATIVE Blood Bank Wristband ID Yes 03/04/25 03/04/25 03/04/25 00:35 01:24 02:26 WBC RBC Hgb Hct MCV MCH MCHC RDW Std Deviation Plt Count Neut % (Auto) Lymph % (Auto) Glenn % (Auto) Eos % (Auto) Baso % (Auto) Neut # (Auto) Lymph # (Auto) Glenn # (Auto) Eos # (Auto) Baso # (Auto) Immature Gran # (Auto) Absolute Nucleated RBC Immature Gran % Nucleated RBC % PT INR APTT Sodium Potassium Chloride Carbon Dioxide Anion Gap BUN Creatinine Estim Creat Clear Calc eGFR BUN/Creatinine Ratio Glucose Calculated Osmolality Calcium Corrected Calcium Phosphorus Magnesium Ferritin Total Bilirubin AST ALT Alkaline Phosphatase Troponin I < 0.020 B-Natriuretic Peptide Total Protein Albumin Globulin Albumin/Globulin Ratio Lipase Vitamin B12 Folate 3.74 L Ur Collection Type Clean Catch Urine Color Yellow Urine Clarity Clear Urine pH 6.0 Ur Specific [place] 1.031 Urine Protein Trace Urine Glucose (UA) Negative Urine Ketones 2+ A Urine Blood Negative Urine Nitrite Negative Urine Bilirubin 1+ A Urine Urobilinogen (Auto) 8.0 Ur Leukocyte Esterase Negative Urine RBC 0 Urine WBC 1 Ur Squamous Epith Cells 2 Urine Bacteria None Hyaline Casts < 1 Stool Occult Blood Urine Opiates Screen Negative Urine Fentanyl Screen Negative Ur Barbiturates Screen Negative U Amphetamin/Meth Scrn Negative U Benzodiazepines Scrn Negative U Cocaine Metab Screen Negative U Marijuana (THC) Screen Negative Ethyl Alcohol Blood Type Antibody Screen Blood Bank Wristband ID 03/04/25 04:27 WBC 7.0 RBC 2.99 L Hgb 8.7 L Hct 27.9 L MCV 93 MCH 29.1 MCHC 31.2 RDW Std Deviation 76.1 H Plt Count 199 D Neut % (Auto) 77 Lymph % (Auto) 12 Glenn % (Auto) 10 Eos % (Auto) 0 Baso % (Auto) 0 Neut # (Auto) 5.4 Lymph # (Auto) 0.9 L Glenn # (Auto) 0.7 Eos # (Auto) 0.0 Baso # (Auto) 0.0 Immature Gran # (Auto) 0.05 H Absolute Nucleated RBC 0.00 Immature Gran % 1 H Nucleated RBC % 0 PT INR APTT Sodium 141 Potassium 4.2 D Chloride 108 H Carbon Dioxide 18.7 L Anion Gap 14 BUN 9 Creatinine 0.5 L Estim Creat Clear Calc 101.8 eGFR > 60 BUN/Creatinine Ratio 18 Glucose 89 Calculated Osmolality 278 Calcium 7.9 L D Corrected Calcium 8.5 Phosphorus 5.0 Magnesium 2.5 Ferritin 29 Total Bilirubin 1.2 AST 353 H ALT 98 H Alkaline Phosphatase 131 H D Troponin I B-Natriuretic Peptide Total Protein 5.3 L Albumin 3.2 L D Globulin 2.1 L Albumin/Globulin Ratio 1.5 Lipase Vitamin B12 485 Folate Ur Collection Type Urine Color Urine Clarity Urine pH Ur Specific [place] Urine Protein Urine Glucose (UA) Urine Ketones Urine Blood Urine Nitrite Urine Bilirubin Urine Urobilinogen (Auto) Ur Leukocyte Esterase Urine RBC Urine WBC Ur Squamous Epith Cells Urine Bacteria Hyaline Casts Stool Occult Blood Urine Opiates Screen Urine Fentanyl Screen Ur Barbiturates Screen U Amphetamin/Meth Scrn U Benzodiazepines Scrn U Cocaine Metab Screen U Marijuana (THC) Screen Ethyl Alcohol Blood Type Antibody Screen Blood Bank Wristband ID Quality Measures Quality Measures VTE prophylaxis Assessment & Plan Assessment Current Active Medications: Generic Name Dose Route Start Last Admin Trade Name Freq PRN Reason Stop Dose Admin Hydrocodone Bitart/Acetaminophen 1 tab 03/03/25 23:17 03/04/25 05:05 Hydrocodone/Apap 5/325 Tablet PO 03/08/25 23:16 1 tab Q4HR PRN Administration PAIN SCALE 4-6 (Moderate Diazepam 2.5 mg 03/03/25 23:22 03/04/25 15:22 Diazepam Inj 5 Mg/Ml Vial 2 Ml IVP 03/08/25 23:21 2.5 mg Q2HR PRN Administration CIWA SCORE 8-13 Diazepam 5 mg 03/03/25 23:22 Diazepam Inj 5 Mg/Ml Vial 2 Ml IVP 03/08/25 23:21 Q2HR PRN CIWA SCORE 14-19 Diazepam 10 mg 03/03/25 23:22 Diazepam Inj 5 Mg/Ml Vial 2 Ml IVP 03/08/25 23:21 Q2HR PRN CIWA SCORE 20-25 Escitalopram Oxalate 10 mg 03/04/25 11:30 03/04/25 12:00 Escitalopram Oxalate 10 Mg Tablet PO 04/03/25 11:29 Not Given QDAY FEDER[place] Folic Acid 1 mg 03/04/25 09:00 Folic Acid 1 Mg Tablet PO 04/03/25 08:59 QDAY FEDER[place] Sodium Chloride 1,000 mls @ 100 mls/hr 03/03/25 22:17 03/04/25 08:41 Ns IV 04/02/25 22:16 100 mls/hr .Q10H FEDER[place] Administration Octreotide Acetate 1,000 mcg/ 102 mls @ 5.1 mls/hr 03/04/25 19:45 Sodium Chloride IV 03/08/25 23:24 .Q20H FEDERICO Protocol 50 MCG/HR Octreotide Acetate 1,000 mcg/ 102 mls @ 5.1 mls/hr 03/03/25 23:45 03/04/25 01:04 Sodium Chloride IV 03/04/25 19:44 50 mcg/hr .Q20H FEDER[place] 5.1 mls/hr Administration Protocol 50 MCG/HR Ceftriaxone Sodium/Dextrose 1 gm in 50 mls @ 100 mls/hr 03/04/25 11:16 03/04/25 13:03 Rocephin/D5w 1gm Iv Premix IV 03/11/25 11:15 100 mls/hr QDAY FEDER[place] Administration Ibuprofen 400 mg 03/03/25 23:17 Ibuprofen Tab 400 Mg Tablet PO 04/02/25 23:16 Q6HR PRN Fever > 100.4 Morphine Sulfate 1 mg 03/04/25 13:03 03/04/25 13:13 Morphine Sulf Inj 10 Mg/Ml Vial IVP 03/09/25 13:02 1 mg Q6HR PRN Administration PAIN SCALE 7-10 (Severe Ondansetron HCl 4 mg 03/03/25 23:17 Ondansetron Inj 2 Mg/Ml Inj 2 Ml IVP 04/02/25 23:16 Q6H PRN NAUSEA OR VOMITING Protocol Pantoprazole Sodium 40 mg 03/04/25 09:00 03/04/25 08:41 Pantoprazole Inj 40 Mg Vial IVP 04/03/25 08:59 40 mg QDAY FEDER[place] Administration Thiamine HCl 100 mg 03/04/25 09:00 Thiamine 100 Mg Tablet PO 04/03/25 08:59 QDAY FEDER[place] Trazodone HCl 100 mg 03/04/25 11:18 Trazodone Hcl 50 Mg Tablet PO 04/03/25 11:17 QDAY PRN insomnia Plan 59-year-old female with history of complicated bariatric surgery and alcohol use disorder presents with 5 days of nausea, vomiting, melena, and abdominal pain, dizziness and leg weakness; found to have H/H drop, transaminitis, positive stool guaiac, and elevated CIWA score concerning for upper GI bleed and alcohol withdrawal; admitted for EGD and medical management. # GI bleed-likely #UGIB vs LGIB Patient presents with melena, nausea/vomiting, H/H drop (9.8/30.6 from baseline 11.8/34.4), and history of gastric bypass. Positive stool guaiac and occult blood test. possible post-bariatric anastomotic ulcer vs marginal ulcer exacerbated by alcohol. Plan - GI consulted, possible EGD today - NPO status maintained - Continue to monitor H&H - Continue with Protonix IV - Continue with octreotide IV - Started ceftriaxone 1gm daily x 7days # Alcohol withdrawal (CIWA 16) EtOH level 254 on arrival, daily use (3?4 shots/day), last drink just before EMS arrival. Patient has prior history of detox and relapse. Currently symptomatic with tremors, anxiety, mild headache. This morning CIWA score is 7. Plan - Continue CIWA protocol - Switched to IV thiamine, IV folate - Continue to monitor for signs of DT, hallucinosis #Acute liver failure # Fatty liver disease # Transaminitis AST 389, ALT 110, ALP 153. Ratio >2:1 suggests alcoholic hepatitis. Lipase normal. No current jaundice or encephalopathy. Occasional acetaminophen use. LFTs are uptrending: AST 353, ALT 498 Plan - Continue to trend LFT - Avoid hepatotoxins -Counseled about alcohol cessation #Acute Anemia (multifactorial, GI loss + nutritional) Hgb dropped 2g in 3 months, now 9.8. Likely due to chronic upper GI bleeding, poor nutrition, and possibly anemia of chronic disease. This morning hemoglobin downtrending to 8.7, hematocrit 8.7 noted. Uptrending aPTT 29.9 Plan: - Continue serial CBC monitoring - Iron panel, ferritin, B12, folate ordered - Transfuse PRBC if Hgb <7 or symptomatic # Depression (chronic, poorly managed) History of major depressive disorder, recent medication change (off Zoloft), reports worsening mood, tearfulness, hopelessness, but no suicidal ideation. Depression likely contributes to EtOH relapse. Plan: - Consider restarting or adjusting antidepressant when medically stable - Encourage engagement with mental health services post-discharge - No suicidal/homicidal ideations at this time - Follow-up outpatient psychiatrist - Antidepressant held # Suspected Herpes Zoster Patient reports pain and visible rash over right rib/chest area, occasionally tender. Has hx of chickenpox. May be pre-eruption or early shingles. Plan ? Monitor rash evaluation - Pain control - Follow-up outpatient # Fall Risk / Gait Instability 2 falls in past 24h without LOC or trauma. Feels legs ?give out.? Likely multifactorial: deconditioning, hypotension, EtOH. Plan: - Daily PT/OT evaluation once daily - Fall precaution may be needed Hospital Management: Lines: Peripheral IV Diet: NPO, GI prophylaxis: PPI IV DVT Prophylaxis: SCDs Disposition: When seen floor, EGD procedure planned CODE STATUS: Full code Patient seen and assessed under supervision of attending physician Dr. Nunez and discuss with senior resident Dr. Abbott PGY-2 Dorene Wang MD PGY-1, Internal Medicine Attending Provider Attestation/Addendum I attest that I was physically present for the evaluation, physical examination, lab and imaging review of the patient with the residents. I discussed the case with the residents and agree with the findings and plans of care as documented above. Will Nunez MD
--- NOTE | 2025-03-04 16:56 | ESCONSULT_ITS ---
HPI Data of Consult Requesting Physician: Will Nunez MD Primary Care Provider: Physician No Primary/Family Consult Narrative Reason for consult: Melena, H/H 8.7 and 27.9 History of present illness: 59-year-old female presented to the emergency room with upper and lower abdominal pain with dark melanotic stools She drinks about a pint of hard liquor every day She does have a previous history of some sort of a gastric surgery in the past exact details are not known On 12/04/2024 for hemoglobin hematocrit 11.8 and 34.4 In the ER hemoglobin was 8.7 hematocrit 27.9 with a platelet count 199,000 and a pro time INR 1.0 CT scan of the chest abdomen pelvis without contrast showed 7 mm left lower lobe lung nodule hepatomegaly with diffuse fatty infiltration and absent gallbladder 12/04/2024 she had abdominal ultrasound which showed absent gallbladder and fatty liver She has a low folate at 3.7 and B12 was normal at 485 Total bilirubin is 1.2 AST ALT 353 and 96 and alk phos 131 After his examination by the ER [employer]/PA showed dark melanotic stools grossly Hemoccult positive cc:: cc: Will Nunez MD Review of Systems Review of Systems Systems Reviewed: All systems reviewed, normal except as documented Past Medical History Surgical History OTHER SURGICAL HX: Tenderness Meds Home Medications and Allergies Home Medications ?Medication ?Instructions ?Recorded ?Confirmed ?Type pantoprazole 40 mg tablet,delayed 40 mg PO 2XD 5 03/04/25 History release acamprosate 333 mg tablet,delayed 333 mg PO QDAY 03/0403/04/25 History release escitalopram oxalate 10 mg tablet 10 mg PO QDAY 03/04/25 History meclizine 25 mg tablet 25 mg PO QID PRN dizziness 0 03/04/25 03/04/25 History trazodone 100 mg tablet 100 mg PO QDAY PRN insomnia 03/04/25 03/04/25 History Allergies Allergy/AdvReac Type Severity Reaction Status Date / Time Sulfa (Sulfonamide Allergy Verified 03/03/25 20:43 Antibiotics) Exam Vital Signs Temp Pulse Resp BP Pulse Ox O2 Del Method O2 Flow Rate 97.5 F 78 18 134/70 H 94 L Room Air 2 03/04/25 16:00 03/04/25 16:00 03/04/25 16:00 03/04/25 16:00 03/04/25 16:00 03/04/25 16:00 03/04/25 07:10 Constitutional Comments: Chronically ill-appearing Routine Respiratory Exam Comments: Normal to auscultation Routine Abdominal Exam Comments: Soft nontender Results Labs 03/04/25 04:27 03/04/25 04:27 Labs: Short CBC 03/03/25 03/04/25 Range/Units 21:00 04:27 WBC 6.4 7.0 (3.6-11.0) Thou/mm3 Hgb 9.8 L 8.7 L (12.0-16.0) g/dL Hct 30.6 L 27.9 L (36.0-46.0) % Plt Count 244 199 D (140-440) Thou/mm3 BMP 03/03/25 03/04/25 21:00 04:27 Sodium 140 141 Potassium 3.2 L 4.2 D Chloride 104 108 H Carbon Dioxide 19.7 L 18.7 L BUN 12 9 Creatinine 0.5 L 0.5 L Glucose 113 H 89 Calcium 9.5 7.9 L D Cardiac Enzymes 03/04/25 Range/Units 00:35 Troponin I < 0.020 (0.0-0.045) ng/mL Liver Function 03/03/25 03/04/25 Range/Units 21:00 04:27 Total Bilirubin 1.0 1.2 (0.3-1.2) mg/dL AST 389 H 353 H (0-34) U/L ALT 110 H 98 H (10-49) U/L Alkaline Phosphatase 153 H 131 H D (46-116) U/L Albumin 3.8 3.2 L D (3.4-4.8) gm/dL Urine 03/04/25 Range/Units 02:26 Urine Color Yellow (Lt Yel-Yel) Urine Clarity Clear (Clear/Hazy) Urine pH 6.0 (5.0-7.0) Ur Specific [place] 1.031 (1.001-1.035) Urine Protein Trace (Neg - Trace) Urine Glucose (UA) Negative (Negative) Assessment and Plan Additional Assessment & Plan Additional Plan: # Acute GI bleed in the form of melena # Acute posthemorrhagic anemia Plan Serial CBC Transfuse if the hemoglobin drops below 7 g Octreotide infusion at 50 mcg/h after loading dose 50 mcg IV push IV Protonix Consent obtained for fiberoptic esophagogastroduodenoscopy with possible biopsy possible therapeutic intervention under intravenous moderate sedation Will follow the patient Given my standard lecture to the patient about the virtues of complete abstinence from the alcohol # 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
--- NOTE | 2025-03-04 18:45 | SUR.PHASEI ---
1845: Pt. AAOx4, vitals stable, breathing unlabored, no complaint of pain or nausea, no dressing in place, no active bleed noted, report received from Lubna SANTIAGO.
--- NOTE | 2025-03-04 19:20 | SUR.PHASEI ---
1920: Pt. AAOx4, vitals stable, breathing unlabored, no complaint of pain or nausea, no dressing in place, no active bleed noted, pt. tolerated sips of water well, gave report to floor nurse prior to transfer to room.
[2025-03-04] MEDS: SUCRALFATE SUSP 1 GM/10 ML UDC PO (20:08)
[2025-03-04] MEDS: MG HYD/AL HYD/SIME (Maalox Reg) SUSP 30 ML UDC 15 ML PO (20:09)
[2025-03-05] VITALS (10 sets, daily range): BP systolic 104–163; BP diastolic 68–95; PULSE 19–103; RESP 15–95; TEMP 36.1–37.3; O2SAT 90–97; BMI 26.2
[2025-03-05] MEDS: MG HYD/AL HYD/SIME (Maalox Reg) SUSP 30 ML UDC 15 ML PO ×4 (05:04→20:59)
[2025-03-05] MEDS: SUCRALFATE SUSP 1 GM/10 ML UDC PO ×4 (05:05→20:59)
[2025-03-05] MEDS: MORPHINE SULF INJ 10 MG/ML VIAL IVP ×2 (05:39→16:36)
[2025-03-05 06:06] LABS: Basophils # (Auto) 0.0 Thou/mm3 (0.0-0.2); Basophils % (Auto) 0 % (0-2.5); Eosinophils # (Auto) 0.0 Thou/mm3 (0.0-0.5); Eosinophils % (Auto) 1 % (0-10); Hematocrit 26.1 % (36.0-46.0); Immature Granulocytes Auto 0.03 Thou/mm3 (0.00-0.00); Lymphocytes # (Auto) 1.5 Thou/mm3 (1.0-4.8); Lymphocytes % (Auto) 26 % (10-50); Mean Corpuscular HGB Conc 30.7 g/dl (31.0-37.0); Mean Corpuscular Hemoglobin 28.7 pg (25.0-35.0); Mean Corpuscular Volume 94 fL (80-100); Monocytes # (Auto) 0.4 Thou/mm3 (0.0-0.8); Monocytes % (Auto) 7 % (0-12); Neutrophils # (Auto) 3.8 Thou/mm3 (1.8-7.7); Neutrophils % (Auto) 66 % (37-80); Nucleated Red Blood Cell # 0.00 Thou/mm3 (0.00-0.00); Nucleated Red Blood Cell % 0 /100 WBC (0); Platelet Count 188 Thou/mm3 (140-440); RDW Standard Deviation 75.7 fL (36.4-46.3); Red Blood Count 2.79 Miln/mm3 (4.00-5.20); White Blood Count 5.7 Thou/mm3 (3.6-11.0)
[2025-03-05 06:09] LABS: Hemoglobin 8.0 g/dL (12.0-16.0)
[2025-03-05 06:36] LABS: Alanine Aminotransferase 87 U/L (10-49); Albumin, Serum 3.0 gm/dL (3.4-4.8); Albumin/Globulin Ratio 1.5 (1.2-2.2); Alkaline Phosphatase 131 U/L (46-116); Anion Gap 10 (7-16); Aspartate Amino Transferase 296 U/L (0-34); BUN/Creatinine Ratio 16 Ratio (12-20); Bilirubin,Total 1.2 mg/dL (0.3-1.2); Blood Urea Nitrogen 8 mg/dL (9-23); Calcium 7.9 mg/dL (8.3-10.6); Calcium (Corrected) 8.7 mg/dL (8.5-10.1); Carbon Dioxide 22.8 mMol/L (20.0-31.0); Chloride 106 mMol/L (98-107); Creatinine (Component) 0.5 mg/dL (0.6-1.3); Estimated Creatinine Clearance 104.5 mL/min (>60); Globulin 2.0 gm/dL (2.3-3.5); Glucose 134 mg/dL (74-106); Magnesium 1.7 mg/dL (1.6-2.6); Osmolality,Calculated 277 (275-295); Phosphorous 1.9 mg/dL (2.4-5.1); Potassium 4.4 mMol/L (3.4-5.1); Sodium 139 mMol/L (136-145); Total Protein 5.0 gm/dL (5.7-8.2); eGFR > 60 See Note
[2025-03-05] MEDS: cefTRIAXone/D5w 1gm IV premix 1 GM/50 ML BAG IV (08:13)
[2025-03-05] MEDS: ESCITALOPRAM OXALATE 10 MG TABLET PO (08:14)
[2025-03-05] MEDS: DIAZEPAM INJ 5 MG/ML VIAL 2 ML 2.5 MG IVP ×3 (08:15→19:44)
[2025-03-05] MEDS: FOLIC ACID 1 MG TABLET PO (09:14)
[2025-03-05] MEDS: THIAMINE 100 MG TABLET PO (09:15)
[2025-03-05] MEDS: NAPH,KPH MBDB 1 PACKET (1.5 GM) PO ×2 (09:15→20:59)
[2025-03-05 09:40] LABS: Glucose Estimated Average 131 mg/dL (80-131); Hemoglobin A1C 6.2 % Hgb (4.8-6.0)
--- NOTE | 2025-03-05 11:12 | PC.SS ---
Follow up note: On Octrotide drip for 24 hour. Pt is possible d/c for tomorrow. Pt will return home upon dc.
[2025-03-05] MEDS: NA SU/NAHCO3/KC/PEG (Golytely) 4,000 ML BTL 4000 ML PO (12:55)
--- NOTE | 2025-03-05 13:44 | ESPR_ITS ---
<Statement entered by Nichole Abbott MD - 03/05/25 17:24> Patient was seen and examined at bedside. I agree on the assessment and plan on this note as documented by resident Dorene Wang PGY1. Patient received EGD yesterday, EGD showed esophageal ulcer at anastomotic site from gastric bypass, GI recommends Protonix twice daily, Maalox and Carafate 4 times a day and additional octreotide drip to be discontinued later in the evening today. Patient is requesting colonoscopy, discussed with syrup machine laborer, patient will be started on GoLytely prep will be scheduled for colonoscopy tomorrow morning, started on clear liquid diet for now. Will continue to replete folic acid, patient has folate deficiency. Patient's disposition telemetry, pending colonoscopy. Case discussed with attending Dr. Mayra Abbott MD PGY-2 Documentation for date of: 03/05/25 Subjective Subjective Interval history: 59-year-old female past medical history of alcohol use disorder, depression, fatty liver disease, resolved type 2 DM s/p revised gastric bypass. Presented to ED with with 5 days of nausea vomiting, black loose stools, with daily urgency and occasional incontinence, abdominal pain, dizziness, fall attributed to leg weakness, with no loss of consciousness. Admitted for possible upper GI bleed, alcohol withdrawal management. Overnight Per GI consult patient got an EGD with findings of esophagitis lower third esophagus, evidence of gastric bypass, characterized by ulceration. Dr. Drummond recommended octreotide for additional 24 hours then discontinue. Patient once stable and saturating on room air at. She denies nausea or vomiting. Today Patient was seen and examined at bedside. Labs were reviewed. She still endorses mild headache but denies nausea , vomiting, diaphoresis. Per,PT patient is able to stand but has generalized tremor and unsteady gait.Dr. Drummond recommended to start on Carafate suspension 1 g 4 times daily, Maalox 15 mL p.o. every 4 hours. Colonoscopy plan for this tomorrow, patient started GoLytely Exam Vital Signs Temp Pulse Resp BP Pulse Ox O2 Del Method O2 Flow Rate 97.1 F 19 L 18 163/81 H 95 Room Air 3 03/05/25 12:00 03/05/25 12:03/05/25 12:03/05/25 12:00 03/05/25 12:03/05/25 08:00 03/04/25 18:39 Narrative Exam Physical Exam: General: Alert, no acute distress. Skin: Warm, dry, dry crusty rash midchest HEENT: Normocephalic, atraumatic.Normal conjunctiva, PERRL,no scleral icterus Cardiovascular: Regular rate and rhythm, no murmur, +S1/S2. Respiratory: Lungs are clear to auscultation, respirations unlabored, no crackles, no wheezing. Gastrointestinal: Soft, mid epigastic area tender to palpation, rebound tenderness Extremities: No edema, no cyanosis, no clubbing. 2+ radial pulse bilaterally, 2+ pedal pulse bilaterally. Neuro: No focal deficits observed. Conversant, moving all extremities. No overt cerebellar signs/incoordination. Psychiatric: Cooperative, appropriate affect. Objective Labs 03/05/25 05:30 03/05/25 05:30 Labs: Laboratory Results - last 24 hr 03/05/25 05:30 WBC 5.7 RBC 2.79 L Hgb 8.0 L Hct 26.1 L MCV 94 MCH 28.7 MCHC 30.7 L RDW Std Deviation 75.7 H Plt Count 188 Neut % (Auto) 66 Lymph % (Auto) 26 [place] % (Auto) 7 Eos % (Auto) 1 Baso % (Auto) 0 Neut # (Auto) 3.8 Lymph # (Auto) 1.5 [place] # (Auto) 0.4 Eos # (Auto) 0.0 Baso # (Auto) 0.0 Immature Gran # (Auto) 0.03 H Absolute Nucleated RBC 0.00 Immature Gran % 1 H Nucleated RBC % 0 Sodium 139 Potassium 4.4 Chloride 106 Carbon Dioxide 22.8 Anion Gap 10 BUN 8 L Creatinine 0.5 L Estim Creat Clear Calc 104.5 eGFR > 60 BUN/Creatinine Ratio [address] Glu mg/dL 131 Hemoglobin A1c 6.2 H Calculated Osmolality 277 Calcium 7.9 L Corrected Calcium 8.7 Phosphorus 1.9 L Magnesium 1.7 Total Bilirubin 1.2 AST 296 H ALT 87 H Alkaline Phosphatase 131 H Total Protein 5.0 L Albumin 3.0 L Globulin 2.0 L Albumin/Globulin Ratio 1.5 Quality Measures Quality Measures VTE prophylaxis Assessment & Plan Assessment Current Active Medications: Generic Name Dose Route Start Last Admin Trade Name Freq PRN Reason Stop Dose Admin Hydrocodone Bitart/Acetaminophen 1 tab 03/03/25 23:17 03/04/25 05:05 Hydrocodone/Apap 5/325 Tablet PO 03/08/25 23:16 1 tab Q4HR PRN Administration PAIN SCALE 4-6 (Moderate Al Hydrox/Mg Hydrox/Simethicone 15 ml 03/04/25 21:00 03/05/25 11:56 Mg Hyd/Al Hyd/Shikha (Maalox Reg) Susp 30 Ml Udc PO 04/03/25 20:59 15 ml QID FEDERICO Administration Diazepam 2.5 mg 03/03/25 23:22 03/05/25 08:15 Diazepam Inj 5 Mg/Ml Vial 2 Ml IVP 03/08/25 23:21 2.5 mg Q2HR PRN Administration CIWA SCORE 8-13 Diazepam 5 mg 03/03/25 23:22 Diazepam Inj 5 Mg/Ml Vial 2 Ml IVP 03/08/25 23:21 Q2HR PRN CIWA SCORE 14-19 Diazepam 10 mg 03/03/25 23:22 Diazepam Inj 5 Mg/Ml Vial 2 Ml IVP 03/08/25 23:21 Q2HR PRN CIWA SCORE 20-25 Escitalopram Oxalate 10 mg 03/04/25 11:30 03/05/25 08:14 Escitalopram Oxalate 10 Mg Tablet PO 04/03/25 11:29 10 mg QDAY FEDERICO Administration Folic Acid 1 mg 03/04/25 09:00 03/05/25 09:14 Folic Acid 1 Mg Tablet PO 04/03/25 08:59 1 mg QDAY FEDERICO Administration Octreotide Acetate 1,000 mcg/ 102 mls @ 5.1 mls/hr 03/04/25 19:45 03/04/25 19:44 Sodium Chloride IV 03/08/25 23:24 50 mcg/hr .Q20H FEDERICO 5.1 mls/hr Administration Protocol 50 MCG/HR Morphine Sulfate 1 mg 03/04/25 13:03 03/05/25 05:39 Morphine Sulf Inj 10 Mg/Ml Vial IVP 03/09/25 13:02 1 mg Q6HR PRN Administration PAIN SCALE 7-10 (Severe Ondansetron HCl 4 mg 03/03/25 23:17 Ondansetron Inj 2 Mg/Ml Inj 2 Ml IVP 04/02/25 23:16 Q6H PRN NAUSEA OR VOMITING Protocol Pantoprazole Sodium 40 mg 03/05/25 21:00 Pantoprazole Inj 40 Mg Vial IVP 04/04/25 20:59 BID FEDERICO Potassium Phos/Sodium Phos 1 packet 03/05/25 09:00 03/05/25 09:15 Naph,[facility] Mbdb 1 Packet (1.5 Gm) PO 03/06/25 09:01 1 packet BID FEDERICO Administration Sucralfate 1 gm 03/04/25 21:00 03/05/25 11:56 Sucralfate Susp 1 Gm/10 Ml Udc PO 04/03/25 20:59 1 gm QID FEDERICO Administration Thiamine HCl 100 mg 03/04/25 09:00 03/05/25 09:15 Thiamine 100 Mg Tablet PO 04/03/25 08:59 100 mg QDAY FEDERICO Administration Trazodone HCl 100 mg 03/04/25 11:18 Trazodone Hcl 50 Mg Tablet PO 04/03/25 11:17 QDAY PRN insomnia Plan 59-year-old female with history of complicated bariatric surgery and alcohol use disorder presents with 5 days of nausea, vomiting, melena, and abdominal pain, dizziness and leg weakness; found to have H/H drop, transaminitis, positive stool guaiac, and elevated CIWA score concerning for upper GI bleed and alcohol withdrawal; admitted for UGIB workup/medical management and alcohol withdrawal management. #Anastomic site large GI Ulcer # Acute posthemorrhagic anemia #Acute GI bleed in the form of melena #UGIB s/p EGD 03/06 # Dyspepsia Patient presents with melena, nausea/vomiting, H/H drop (9.8/30.6 from baseline 11.8/34.4), and history of gastric bypass. Positive stool guaiac and occult blood test. Possible post-bariatric anastomotic ulcer vs marginal ulcer exacerbated by alcohol. Upper GI endoscopy showed finding of esophagitis in the lower third of esophagus, and evidence of gastric bypass characterized by ulceration. Additionally patient hemoglobin and hematocrit trending down but stable. Plan - Continue serial CBC - Please use hemoglobin less than 7 - Discontinue ceftriaxone for SBP prophylaxis - Per GI rec, continue octreotide for additional 24 hours then discontinue - Started on Carafate suspension 1 g 4 times daily - Started Maalox 15 mL p.o. every 4 hours - Per GI rec: Started GoLytely prep, colonoscopy planned for tomorrow - Continue IV Protonix 40 mg BID # Alcohol dependence with withdrawal (CIWA 16 on admission)- improving EtOH level 254 on arrival, daily use (3?4 shots/day), last drink just before EMS arrival. Patient has prior history of detox and relapse. Currently symptomatic with tremors, anxiety, mild headache. On 03/04/25 patient CIWA was 8, currently improving; Score this morning is 3. Plan - Continue CIWA protocol - Switched IV thiamine and folate to p.o. 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 Ratio >2:1 suggests alcoholic hepatitis. On 03/05/25 AST 296 /ALT 87, LFTs improving. Lipase normal. No current jaundice or encephalopathy. History of occasional acetaminophen use. Plan - Agree to trend LFTs - Avoid hepatotoxins - counseled alcohol cessation # Folate deficiency Patient has a history of alcohol use disorder likely, likely affecting vitamin B9 level. Folate level was 3.74, which is low. Patient was given IV thiamine IV folate on admission Plan - Switched IV folate to p.o. -Counseled patient about benefits of alcohol cessation # Electrolytes derangement K 3.2, Mg 1.6, Phos 2.7(on admission) likely due to vomiting, poor PO intake, and early EtOH withdrawal.Low Mg can worsen withdrawal and arrhythmia risk. 03/05/25. Phos 1.9( very low) Plan - Started Neutra-Phos p.o. twice daily to replete low p.o. phosphate - Continue to monitor electrolyte fluctuations # Depression (chronic, poorly managed) History of major depressive disorder, recent medication change (off Zoloft), reports worsening mood, tearfulness, hopelessness, but no suicidal ideation. Depression likely contributes to EtOH relapse. Plan: - Consider restarting or adjusting antidepressant when medically stable - Encourage engagement with mental health services post-discharge - No suicidal/homicidal ideations at this time - Follow-up outpatient psychiatrist - Antidepressant held #H/o Herpes Zoster Patient reports pain and visible rash over right rib/chest area, occasionally tender. Has hx of chickenpox. May be pre-eruption or early shingles. Plan ? Monitor rash evaluation - Pain control - Follow-up outpatient # Fall Risk / Gait Instability 2 falls in past 24h without LOC or trauma. Feels legs ?give out.? Likely multifactorial: deconditioning, hypotension, EtOH. Plan: - Daily PT/OT evaluation once daily - Fall precaution may be needed # Incidental lung nodule finding Patient abdominal ultrasound on 12/04/2024, show absent gallbladder and mild hepatomegaly fatty liver. CT chest abdominal pelvis without contrast done on 03/03/2025, shows 7 mm nodule in left lower lobe, hepatomegaly with severe diffuse fatty infiltration throughout the liver. Patient was made aware of the incidental lung nodule. Plan - Advised patient to follow-up outpatient with PCP for incidental CT findings - Follow-up outpatient for further workup for lung and liver findings - Per radiology recommends 6-month follow-up CT chest without contrast Hospital management: Lines: peripheral IV Diet: CLD Bowel: GoLytely prep DVT prophylaxis: SCDs Disposition: telemetry, per GI colonoscopy tomorrow CODE STATUS: Full code Patient seen and assessed under supervision of attending physician Dr. Nunez and discuss with senior resident Dr. Abbott PGY-2 Dorene Wang MD PGY-1, Internal Medicine Attending Provider Attestation/Addendum I attest that I was physically present for the evaluation, physical examination, lab and imaging review of the patient with the residents. I discussed the case with the residents and agree with the findings and plans of care as documented above. At bedside today, patient states he is feeling well and denies any new complaints. Underwent EGD with gastroenterology yesterday, was found to have esophagitis of lower third of esophagus, and was found to have large ulceration at the anastomotic site of previous bariatric surgery. Continues to be on octreotide drip for today as recommended by GI. Hemoglobin slightly dropped to 8.0 from 8.7 yesterday. Patient has been started on GoLytely for colonoscopy, likely tomorrow. Continues to be on Protonix, Carafate and Maalox. Continues to be on CIWA protocol for alcohol withdrawal, CIWA score this afternoon was 9. Phosphorus level this morning was 1.9, repleted accordingly. Will Nunez MD
[2025-03-05] MEDS: OCTREOTIDE ACET INJ 1,000 MCG in SODIUM CHLORIDE 0.9% 100 ML 5.1 MCG IV (17:37)
--- NOTE | 2025-03-05 20:00 | PC.NURSE ---
Pt went to restroom and very non steady, advised pt to use bedside commode for now for safety.
--- NOTE | 2025-03-05 20:48 | PD.IMPROG ---
Documentation for date of: 03/05/25 Subjective Subjective Interval history: Hemoglobin hematocrit 8.0 and 26.1 with a platelet count of 188,000 Schedule for a colonoscopy for tomorrow GoLytely prep in progress Upper endoscopy shows previous gastric procedure anastomotic site large ulceration Exam Vital Signs Temp Pulse Resp BP Pulse Ox O2 Del Method O2 Flow Rate 99.2 F 103 H 16 104/68 90 L Room Air 3 03/05/25 20:00 03/05/25 20:00 03/05/25 20:00 03/05/25 20:00 03/05/25 20:00 03/05/25 16:00 03/04/25 18:39 Objective Labs 03/05/25 05:30 03/05/25 05:30 Labs: Laboratory Results - last 24 hr 03/05/25 05:30 WBC 5.7 RBC 2.79 L Hgb 8.0 L Hct 26.1 L MCV 94 MCH 28.7 MCHC 30.7 L RDW Std Deviation 75.7 H Plt Count 188 Neut % (Auto) 66 Lymph % (Auto) 26 [place] % (Auto) 7 Eos % (Auto) 1 Baso % (Auto) 0 Neut # (Auto) 3.8 Lymph # (Auto) 1.5 [place] # (Auto) 0.4 Eos # (Auto) 0.0 Baso # (Auto) 0.0 Immature Gran # (Auto) 0.03 H Absolute Nucleated RBC 0.00 Immature Gran % 1 H Nucleated RBC % 0 Sodium 139 Potassium 4.4 Chloride 106 Carbon Dioxide 22.8 Anion Gap 10 BUN 8 L Creatinine 0.5 L Estim Creat Clear Calc 104.5 eGFR > 60 BUN/Creatinine Ratio 16 [address]ucose [address] Glu mg/dL 131 Hemoglobin A1c 6.2 H Calculated Osmolality 277 Calcium 7.9 L Corrected Calcium 8.7 Phosphorus 1.9 L Magnesium 1.7 Total Bilirubin 1.2 AST 296 H ALT 87 H Alkaline Phosphatase 131 H Total Protein 5.0 L Albumin 3.0 L Globulin 2.0 L Albumin/Globulin Ratio 1.5 Impressions Impression: Ulceration at the site of previous paretic surgical procedure GI bleed Posthemorrhagic anemia GoLytely prep Consent obtained for fiberoptic colonoscopy with possible biopsy possible therapeutic intervention in the morning Clear liquid diet to continue as long as the patient is drinking GoLytely Assessment & Plan A&P Narrative # Acute GI bleed in the form of melena # Acute posthemorrhagic anemia Plan Serial CBC Transfuse if the hemoglobin drops below 7 g Octreotide infusion at 50 mcg/h after loading dose 50 mcg IV push IV Protonix Consent obtained for fiberoptic esophagogastroduodenoscopy with possible biopsy possible therapeutic intervention under intravenous moderate sedation Will follow the patient Given my standard lecture to the patient about the virtues of complete abstinence from the alcohol # 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
[2025-03-05] MEDS: HYDROcodone/APAP 5/325 TABLET 1 TAB PO (22:42)
--- NOTE | 2025-03-05 22:51 | PC.NURSE ---
MD Drummond came and explained to pt regarding colonoscopy, pt understand the procedure,gave consent. Pt will be clear liquid while on golytely.
[2025-03-06] VITALS (20 sets, daily range): BP systolic 100–174; BP diastolic 46–98; PULSE 64–103; RESP 12–96; TEMP 36.3–37; O2SAT 94–100; BMI 26.2
[2025-03-06] MEDS: DIAZEPAM INJ 5 MG/ML VIAL 2 ML 2.5 MG IVP ×2 (00:53→13:22)
[2025-03-06] MEDS: SUCRALFATE SUSP 1 GM/10 ML UDC PO ×3 (05:23→17:51)
[2025-03-06] MEDS: MG HYD/AL HYD/SIME (Maalox Reg) SUSP 30 ML UDC 15 ML PO ×3 (05:23→17:51)
[2025-03-06 06:18] LABS: Basophils # (Auto) 0.0 Thou/mm3 (0.0-0.2); Basophils % (Auto) 0 % (0-2.5); Eosinophils # (Auto) 0.0 Thou/mm3 (0.0-0.5); Eosinophils % (Auto) 1 % (0-10); Hematocrit 26.8 % (36.0-46.0); Immature Granulocytes Auto 0.06 Thou/mm3 (0.00-0.00); Lymphocytes # (Auto) 1.8 Thou/mm3 (1.0-4.8); Lymphocytes % (Auto) 34 % (10-50); Mean Corpuscular HGB Conc 31.7 g/dl (31.0-37.0); Mean Corpuscular Hemoglobin 29.2 pg (25.0-35.0); Mean Corpuscular Volume 92 fL (80-100); Monocytes # (Auto) 0.4 Thou/mm3 (0.0-0.8); Monocytes % (Auto) 8 % (0-12); Neutrophils # (Auto) 2.9 Thou/mm3 (1.8-7.7); Neutrophils % (Auto) 56 % (37-80); Nucleated Red Blood Cell # 0.00 Thou/mm3 (0.00-0.00); Nucleated Red Blood Cell % 0 /100 WBC (0); Platelet Count 194 Thou/mm3 (140-440); RDW Standard Deviation 73.0 fL (36.4-46.3); Red Blood Count 2.91 Miln/mm3 (4.00-5.20); White Blood Count 5.2 Thou/mm3 (3.6-11.0)
[2025-03-06 06:19] LABS: Hemoglobin 8.5 g/dL (12.0-16.0)
[2025-03-06 06:55] LABS: Alanine Aminotransferase 99 U/L (10-49); Albumin, Serum 3.0 gm/dL (3.4-4.8); Albumin/Globulin Ratio 1.4 (1.2-2.2); Alkaline Phosphatase 143 U/L (46-116); Anion Gap 8 (7-16); Aspartate Amino Transferase 342 U/L (0-34); BUN/Creatinine Ratio 10 Ratio (12-20); Bilirubin,Total 1.2 mg/dL (0.3-1.2); Blood Urea Nitrogen < 5 mg/dL (9-23); Calcium 7.9 mg/dL (8.3-10.6); Calcium (Corrected) 8.7 mg/dL (8.5-10.1); Carbon Dioxide 27.6 mMol/L (20.0-31.0); Chloride 99 mMol/L (98-107); Creatinine (Component) 0.5 mg/dL (0.6-1.3); Estimated Creatinine Clearance 101.8 mL/min (>60); Globulin 2.1 gm/dL (2.3-3.5); Glucose 153 mg/dL (74-106); Magnesium 1.1 mg/dL (1.6-2.6); Osmolality,Calculated 270 (275-295); Phosphorous 1.6 mg/dL (2.4-5.1); Potassium 3.5 mMol/L (3.4-5.1); Sodium 135 mMol/L (136-145); Total Protein 5.1 gm/dL (5.7-8.2); eGFR > 60 See Note
[2025-03-06] MEDS: MORPHINE SULF INJ 10 MG/ML VIAL IVP ×2 (09:02→21:29)
[2025-03-06] MEDS: DIAZEPAM INJ 5 MG/ML VIAL 2 ML IVP (09:03)
[2025-03-06] MEDS: FOLIC ACID 1 MG TABLET PO (09:04)
[2025-03-06] MEDS: ESCITALOPRAM OXALATE 10 MG TABLET PO (09:04)
[2025-03-06] MEDS: Magnesium Sulfate 4 GM Ivpb 4 GM/50 ML BAG IV ×2 (09:04→13:07)
[2025-03-06] MEDS: SOD PHOS ADDITIVE 22.5 MMOL in SODIUM CHLORIDE 0.9% 500 ML 500 ML 82.778 MMOL IV (09:04)
[2025-03-06] MEDS: THIAMINE 100 MG TABLET PO (09:04)
[2025-03-06] MEDS: NAPH,KPH MBDB 1 PACKET (1.5 GM) PO (09:05)
--- NOTE | 2025-03-06 10:20 | PC.SS ---
Late note 03-04-25: SS met with patient regarding her d/c plan. Pt is alert/oriented. Pt was admitted for Upper Gi Bleed/CIWA. Pt confirmed demographic and contact information is correct on facesheet. Pt resides with . Pt states she has a rollator walker, wheelchair, and cane. Pt is ok with all ADLs. Patient?s pharmacy of choice is [facility] . Pt named medical her , López Reynoso, phone# [phone] medical decision maker if she is unable. Patient?s choice is to return home upon d/c. Pt states she consumes alcohol everyday for the past year and half. Pt states she has stopped drinking in the past for 6-8 weeks. SS offered community resources and pt was receptive. Pt followed up with PCP 4 weeks ago in late January. D/C plan: Return home Next of Kin: López Reynoso, , phone# [phone] PCP: Dr. Shalonda Stapleton from [facility] in [place] Address: Correct on facesheet
--- NOTE | 2025-03-06 13:19 | ESPR_ITS ---
<Statement entered by Swati Francis MD - 03/06/25 19:13> Patient is seen at bedside. Patient continues to have CIWA of between 8-10, will continue CIWA protocol. Patient is also undergoing GoLytely prep pending colonoscopy today. Otherwise vitals are stable labs are stable and electrolytes are repleted. Patient's transaminitis are secondary alcoholic hepatittis in the setting of alcohol use disorder. Patient was seen and examined by me personally. I have directly supervised and reviewed documentation by the team resident and agree with its findings. ------- Plan of care was discussed with the attending, Dr. Edgardo Francis, PGY-2 Documentation for date of: 03/06/25 Subjective Subjective Interval history: 59-year-old female with past medical history of alcohol use dependence, fatty liver disease, presented to the ED 5 for 5 days of nausea, vomiting melena, abdominal pain, dizziness. Admitted for upper GI bleed workup, and alcohol withdrawal management. Overnight Overnight patient there were no acute events. Vitals were stable. CIWA was monitored. Per GI consult patient was started on GoLytely prep for possible colonoscopy. Today Today patient was seen and examined at bedside. Patient was conversant, and saturating well on room air. Vital stable. Octreotide infusion was stopped and blood pressure normalized. She continued to endorse abdominal pain, tremors, anxiety and mild headache. CIWA score of 9. Patient is still taking GoLytely GoLytely prep, possible colonoscopy this evening per GI consult Exam Vital Signs Temp Pulse Resp BP Pulse Ox O2 Del Method O2 Flow Rate 97.6 F 75 15 135/89 H 96 Room Air 3 03/06/25 12:03/06/25 12:03/06/25 12:03/06/25 12:03/06/25 12:03/06/25 12:03/06/25 08:00 Narrative Exam Physical Exam: General: Alert and oriented x 3, pleasantly conversant Skin: Warm, dry crusty rash mid chest HEENT: Normocephalic, atraumatic.Normal conjunctiva, PERRL,no scleral icterus Cardiovascular: Regular rate and rhythm, no murmur, +S1/S2. Respiratory: Lungs are clear to auscultation, respirations unlabored, no crackles, no wheezing. Gastrointestinal: Soft, mid epigastric area tender to palpation. No guarding or rebound tenderness. Extremities: No edema, no cyanosis, no clubbing. 2+ radial pulse bilaterally, 2+ pedal pulse bilaterally. Neuro: No focal deficits observed. Conversant, moving all extremities. No overt cerebellar signs/incoordination. Psychiatric: Cooperative, appropriate affect. Objective Labs 03/06/25 05:00 03/06/25 05:00 Labs: Laboratory Results - last 24 hr 03/06/25 05:00 WBC 5.2 RBC 2.91 L Hgb 8.5 L Hct 26.8 L MCV 92 MCH 29.2 MCHC 31.7 RDW Std Deviation 73.0 H Plt Count 194 Neut % (Auto) 56 Lymph % (Auto) 34 [place] % (Auto) 8 Eos % (Auto) 1 Baso % (Auto) 0 Neut # (Auto) 2.9 Lymph # (Auto) 1.8 [place] # (Auto) 0.4 Eos # (Auto) 0.0 Baso # (Auto) 0.0 Immature Gran # (Auto) 0.06 H Absolute Nucleated RBC 0.00 Immature Gran % 1 H Nucleated RBC % 0 Sodium 135 L Potassium 3.5 D Chloride 99 Carbon Dioxide 27.6 Anion Gap 8 BUN < 5 L Creatinine 0.5 L Estim Creat Clear Calc 101.8 eGFR > 60 BUN/Creatinine Ratio 10 L Glucose 153 H Calculated Osmolality 270 L Calcium 7.9 L Corrected Calcium 8.7 Phosphorus 1.6 L Magnesium 1.1 L Total Bilirubin 1.2 AST 342 H ALT 99 H Alkaline Phosphatase 143 H Total Protein 5.1 L Albumin 3.0 L Globulin 2.1 L Albumin/Globulin Ratio 1.4 Quality Measures Quality Measures VTE prophylaxis Assessment & Plan Assessment Current Active Medications: Generic Name Dose Route Start Last Admin Trade Name Freq PRN Reason Stop Dose Admin Hydrocodone Bitart/Acetaminophen 1 tab 03/03/25 23:17 03/05/25 22:42 Hydrocodone/Apap 5/325 Tablet PO 03/08/25 23:16 1 tab Q4HR PRN Administration PAIN SCALE 4-6 (Moderate Al Hydrox/Mg Hydrox/Simethicone 15 ml 03/04/25 21:00 03/06/25 13:00 Mg Hyd/Al Hyd/Shikha (Maalox Reg) Susp 30 Ml Udc PO 04/03/25 20:59 15 ml QID FEDERICO Administration Diazepam 2.5 mg 03/03/25 23:22 03/06/25 00:53 Diazepam Inj 5 Mg/Ml Vial 2 Ml IVP 03/08/25 23:21 2.5 mg Q2HR PRN Administration CIWA SCORE 8-13 Diazepam 5 mg 03/03/25 23:22 03/06/25 09:03 Diazepam Inj 5 Mg/Ml Vial 2 Ml IVP 03/08/25 23:21 5 mg Q2HR PRN Administration CIWA SCORE 14-19 Diazepam 10 mg 03/03/25 23:22 Diazepam Inj 5 Mg/Ml Vial 2 Ml IVP 03/08/25 23:21 Q2HR PRN CIWA SCORE 20-25 Escitalopram Oxalate 10 mg 03/04/25 11:30 03/06/25 09:04 Escitalopram Oxalate 10 Mg Tablet PO 04/03/25 11:29 10 mg QDAY FEDER[place] Administration Folic Acid 1 mg 03/04/25 09:00 03/06/25 09:04 Folic Acid 1 Mg Tablet PO 04/03/25 08:59 1 mg QDAY FEDER[place] Administration Magnesium Sulfate 4 gm in 50 mls @ 12.5 mls/hr 03/06/25 14:00 03/06/25 13:07 Magnesium Sulfate Ivpb IV 03/06/25 17:59 12.5 mls/hr X1 ONE Administration Sodium Phosphate 22.5 mmol/ 507.5 mls @ 82.778 mls/hr 03/06/25 07:55 03/06/25 09:04 Sodium Chloride IV 03/06/25 14:02 82.778 mls/hr X1 ONE Administration Morphine Sulfate 1 mg 03/04/25 13:03 03/06/25 09:02 Morphine Sulf Inj 10 Mg/Ml Vial IVP 03/09/25 13:02 1 mg Q6HR PRN Administration PAIN SCALE 7-10 (Severe Ondansetron HCl 4 mg 03/03/25 23:17 Ondansetron Inj 2 Mg/Ml Inj 2 Ml IVP 04/02/25 23:16 Q6H PRN NAUSEA OR VOMITING Protocol Pantoprazole Sodium 40 mg 03/05/25 21:00 03/06/25 09:03 Pantoprazole Inj 40 Mg Vial IVP 04/04/25 20:59 40 mg BID FEDERICO Administration Sucralfate 1 gm 03/04/25 21:00 08/07/25 13:00 Sucralfate Susp 1 Gm/10 Ml Udc PO 04/03/25 20:59 1 gm QID FEDERICO Administration Thiamine HCl 100 mg 03/04/25 09:00 03/06/25 09:04 Thiamine 100 Mg Tablet PO 04/03/25 08:59 100 mg QDAY FEDER[place] Administration Trazodone HCl 100 mg 03/04/25 11:18 Trazodone Hcl 50 Mg Tablet PO 04/03/25 11:17 QDAY PRN insomnia Plan 59-year-old female with history of complicated bariatric surgery and alcohol use disorder presents with 5 days of nausea, vomiting, melena, and abdominal pain, dizziness and leg weakness; found to have H/H drop, transaminitis, positive stool guaiac, and elevated CIWA score concerning for upper GI bleed and alcohol withdrawal; admitted for UGIB workup/medical management and alcohol withdrawal management. #Acute blood loss anemia 2/2 to #Anastomic site GI Ulcer #Hx of gastri bypass surgery #Acute posthemorrhagic anemia #Dyspepsia Patient presents with melena, nausea/vomiting, H/H drop (9.8/30.6 from baseline 11.8/34.4), and history of gastric bypass twice. Positive stool guaiac and occult blood test. Possible post-bariatric anastomotic ulcer vs marginal ulcer exacerbated by alcohol. Upper GI endoscopy showed finding of esophagitis in the lower third of esophagus, and evidence of gastric bypass characterized by ulceration. Plan - Discontinued octreotide transfusion - Continue GoLytely prep, colonoscopy planned for this evening - Continue IV Protonix 40 mg BID -Will continue to monitor daily CBC, transfuse if Hgb < 7 #Alcohol dependence with withdrawal (CIWA 16 on admission)- improving EtOH level 254 on arrival, daily use (3?4 shots/day), last drink just before EMS arrival. Patient has prior history of detox and relapse. Currently symptomatic with tremors, anxiety, mild headache. On 03/04/25 patient CIWA was 8, currently improving; Score this morning is 3. Plan - Continue CIWA protocol - Continue thiamine and folate p.o. - Continue Carafate 1gm p.o. 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 Ratio >2:1 suggests alcoholic hepatitis. On 03/05/25 AST 296 /ALT 87, LFTs improving. Lipase normal. No current jaundice or encephalopathy. History of occasional acetaminophen use. Plan - Continue to trend LFTs - Avoid hepatotoxins - Counseled alcohol cessation # Folate deficiency Patient has a history of alcohol use disorder likely, likely affecting vitamin B9 level. Folate level was 3.74, which is low. Patient was given IV thiamine IV folate on admission, now switched to oral Plan - Continue folic acid 1 mg p.o. daily - Counseled patient about benefits of alcohol cessation # Electrolytes imbalance K 3.2, Mg 1.6, Phos 2.7(on admission) likely due to vomiting, poor PO intake, and early EtOH withdrawal.Low Mg can worsen withdrawal and arrhythmia risk. 03/05/25. Phos 1.9( very low). 03/06/25 Mg 1.1, low. Plan - Continue to replenish electrolytes when needed - Repleted magnesium today - Continue to monitor electrolyte fluctuations #Depression History of major depressive disorder, recent medication change (off Zoloft), reports worsening mood, tearfulness, hopelessness, but no suicidal ideation. Depression likely contributes to EtOH relapse. Plan: - Continue trazodone 100 mg p.o. daily as needed - Continue escitalopram oxalate 10 mg p.o. daily - Encourage engagement with mental health services post-discharge - No suicidal/homicidal ideations at this time #H/o Herpes Zoster Patient reports pain and visible rash over right rib/chest area, occasionally tender. Has hx of chickenpox. May be pre-eruption or early shingles. Plan - Pain control - Follow-up outpatient # Fall Risk / Gait Instability 2 falls in past 24h without LOC or trauma. Feels legs ?give out.? Likely multifactorial: deconditioning, hypotension, EtOH. Plan: - Continue with PT/OT - Fall precaution # other CT findings #Lung nodule #Liver lesion CT chest on 03/03/2025, shows 7 mm nodule in left lower lobe CT abdomen/Pelvis on 09/324- Left lobe hyperdense 29 mm liver lesion Plan - Patient is made aware of the findings - Advised patient to follow-up outpatient with PCP for further outpatient work up and surveillance. Pt will likely need repeat imaging in 6 months. Hospital management: Lines: peripheral IV Diet: CLD Bowel: GoLytely prep DVT prophylaxis: SCDs Disposition: telemetry, per GI colonoscopy tomorrow CODE STATUS: DNR/DNI Patient seen and assessed under supervision of attending physician Dr. Reynoso and discuss with senior resident Dr. Francis PGY-2. Dorene Wang MD PGY-1, Internal Medicine Attending Provider Attestation/Addendum I, Elisa Reynoso, DO, attest that I was physically present for the capellan portions of the service and evaluated the patient with the resident and I reviewed and discussed the case with the resident and agree with the resident's findings and plans of care as documented above Patient seen and evaluated this afternoon. Patient is pending colonoscopy this evening. CIWA score is 5 points. Remains on CIWA protocol. Patient aware that she has a large duodenal ulcer and advised not to take any NSAIDs and practice bland diet. Anticipate DC within next 24h if patient remains stable.
[2025-03-06] MEDS: ONDANSETRON INJ 2 MG/ML INJ 2 ML 4 MG IVP (13:21)
[2025-03-06] MEDS: HYDROcodone/APAP 5/325 TABLET 1 TAB PO (13:29)
--- NOTE | 2025-03-06 22:49 | SUR.PHASEI ---
Pt. arrived to recovery via gurney, eyes closed, pt. responds to verbal commands, VSS, no c/o pain or nausea at this time, lung sounds clear, equal expansion samantha., report received from Hannah SANTIAGO.
--- NOTE | 2025-03-06 23:13 | SUR.PHASEI ---
Called and gave report on pt. s/p colonoscopy to Quin SANTIAGO on M/S unit.
--- NOTE | 2025-03-06 23:20 | SUR.PHASEI ---
Pt. transferred to room 352 via SAROJ jones, no c/o pain or nausea at this time, pt. sitting up tolerating ice chips, Quin SANTIAGO assumed care of pt.
[2025-03-07] VITALS: BP 136/67; PULSE 67; PULSE 79; RESP 24; TEMP 36.9; O2SAT 99
[2025-03-07 04:00] VITALS: BP 129/75; PULSE 60; PULSE 62; RESP 17; TEMP 36.3; O2SAT 100
[2025-03-07] MEDS: MG HYD/AL HYD/SIME (Maalox Reg) SUSP 30 ML UDC 15 ML PO ×2 (05:03→12:08)
[2025-03-07] MEDS: SUCRALFATE SUSP 1 GM/10 ML UDC PO ×2 (05:04→12:08)
[2025-03-07 08:00] VITALS: BP 141/83; PULSE 70; PULSE 75; RESP 20; TEMP 36.3; O2SAT 98
[2025-03-07 08:48] LABS: Basophils # (Auto) 0.0 Thou/mm3 (0.0-0.2); Basophils % (Auto) 0 % (0-2.5); Eosinophils # (Auto) 0.1 Thou/mm3 (0.0-0.5); Eosinophils % (Auto) 1 % (0-10); Hematocrit 28.3 % (36.0-46.0); Hemoglobin 8.9 g/dL (12.0-16.0); Immature Granulocytes Auto 0.04 Thou/mm3 (0.00-0.00); Lymphocytes # (Auto) 1.4 Thou/mm3 (1.0-4.8); Lymphocytes % (Auto) 29 % (10-50); Mean Corpuscular HGB Conc 31.4 g/dl (31.0-37.0); Mean Corpuscular Hemoglobin 29.3 pg (25.0-35.0); Mean Corpuscular Volume 93 fL (80-100); Monocytes # (Auto) 0.4 Thou/mm3 (0.0-0.8); Monocytes % (Auto) 7 % (0-12); Neutrophils # (Auto) 3.0 Thou/mm3 (1.8-7.7); Neutrophils % (Auto) 61 % (37-80); Nucleated Red Blood Cell # 0.00 Thou/mm3 (0.00-0.00); Nucleated Red Blood Cell % 0 /100 WBC (0); Platelet Count 218 Thou/mm3 (140-440); RDW Standard Deviation 76.4 fL (36.4-46.3); Red Blood Count 3.04 Miln/mm3 (4.00-5.20); White Blood Count 5.0 Thou/mm3 (3.6-11.0)
[2025-03-07 09:10] LABS: Anion Gap 8 (7-16); BUN/Creatinine Ratio 8 Ratio (12-20); Blood Urea Nitrogen < 5 mg/dL (9-23); Calcium 7.7 mg/dL (8.3-10.6); Carbon Dioxide 29.4 mMol/L (20.0-31.0); Chloride 99 mMol/L (98-107); Creatinine (Component) 0.6 mg/dL (0.6-1.3); Estimated Creatinine Clearance 85.2 mL/min (>60); Glucose 238 mg/dL (74-106); Osmolality,Calculated 277 (275-295); Potassium 3.2 mMol/L (3.4-5.1); Sodium 136 mMol/L (136-145); eGFR > 60 See Note
[2025-03-07] MEDS: MORPHINE SULF INJ 10 MG/ML VIAL IVP (09:54)
[2025-03-07] MEDS: DIAZEPAM INJ 5 MG/ML VIAL 2 ML 2.5 MG IVP (09:54)
[2025-03-07] MEDS: FOLIC ACID 1 MG TABLET PO (09:58)
[2025-03-07] MEDS: THIAMINE 100 MG TABLET PO (09:58)
[2025-03-07] MEDS: ESCITALOPRAM OXALATE 10 MG TABLET PO (09:58)
[2025-03-07 10:50] VITALS: PULSE 72; RESP 18; RESP 96
[2025-03-07 12:00] VITALS: BP 127/86; PULSE 72; PULSE 82; RESP 19; TEMP 36.3; O2SAT 98
--- NOTE | 2025-03-07 12:14 | PC.NURSE ---
Hospitalist team has rounded on pt and provided discharge instruction, okay for discharge
--- NOTE | 2025-03-07 15:33 | ESDS_ITS ---
<Statement entered by Rivka Elizondo MD - 03/12/25 14:36> I reviewed above note and agree with findings and plans. I have also personally examined the patient with medicine team and went over assessment and plan with medical team including planning intern and resident physician. Planned Discharge Date 03/07/25 DS: Providers Provider Date of admission: 03/03/25 23:17 Primary care physician: Physician No Primary/Family Admitting Provider: Agueda Torres MD Attending Provider on Admission: Elisa Reynoso DO Consults: 03/03/25 22:16 Consult to Gastroenterology Stat Comment: Consulting Provider: Harris Drummond 03/04/25 01:37 PT [Referral Physical Therapy] Routine Comment: Physician Instructions: 03/04/25 06:09 Referral Smoking Cessation Counseling Routine Comment: Smoking Cessation Education Needed Attending Provider on DC: Dr. Rivka Elizondo MD Discharging Provider: Dr. Rivka Elizondo MD Anticipated date of discharge: 03/07/25 DS: Diagnosis Problem List Completed Was Problem List Reviewed/Reconciled?: Yes Hospital Course Hospital Course Hospital course: Summary 59-year-old female with past medical history of alcohol use dependence, fatty liver disease and Hx of gastric by pass surgerry in 2012 and revision in 2014 presented to [facility] ED on 03/03/25 for 5 days of nausea, vomiting, melena, abdominal pain, dizziness. Admitted for upper GI bleed workup, and alcohol withdrawal management. On admission Pt's CIWA score was high therefore pt was started on CIWA protocol as well as was started on Protonix and octreotide drip due clinical suspicion of upper GI bleed. GI specialist was consulted and Pt underwent EGD on 03/04/2025 which showed esophagitis and large ulceration at the anastomotic site where previous gastric bypass surgery. Per GI continue Protonix, Maalox and Carafate and patient will do significantly improvement. After discussion with GI, patient also underwent colonoscopy on 03/06/25 which showed hemorrhoids and moderate diverticulosis. Over the course of hospitalizations patient alcohol withdrawal symptoms continued to improved and CIWA score remained between 2-3. During the hospitalization CT of chest and CT of abdomen/Pelvis in september showed a lung nodule and liver lesion, which pt is informed about to follow up outpatient for further surveillance and work up. Pt is heavily counseled on the importance of cessation of alcohol and was given appropriate information on resources, Pt is hemodynamically stable, saturating on room air, CIWA score 1, ambulating without difficultly, endorses to significant improvement of her symptoms and tolerating oral diet. Pt is stable to be discharged home to self care. Pt is also advised on high fiber diet, fruits and vegetables. Discharge recommendation: - Follow-up with PCP within 1 week of discharge - Patient was counseled importance of high-fiber diet and adequate hydration to help manage symptoms schedule diverticulosis - Patient was made aware of the incidental lung nodule follow-up outpatient for repeat CT - Continue rest of medications as previously prescribed Start on MALOX 15 mL p.o. 4 times daily Start Carafate 1 g p.o. 4 times daily - Return to the ED or call 911 is symptoms return and/or worsen If you don't have a PCP, you can make an appointment at the [facility]: [address] [place] [address] Discharge plan discussed with my senior resident Dr. Francis & attending physician Dr. Caro Wang (PGY-1)- Internal medicine resident Time Spent with Patient Time attestation: Total time spent providing and/or coordinating discharge services: Time spent: Greater than 30 minutes Exam Vital Signs Temp Pulse Resp BP Pulse Ox O2 Del Method O2 Flow Rate 97.4 F 82 19 127/86 H 98 Room Air 2 03/07/25 12:00 03/07/25 12:00 03/07/25 12:00 03/07/25 12:00 03/07/25 12:00 03/07/25 12:03/07/25 04:00 Narrative Exam General: Alert and oriented x 3, pleasantly conversant Skin: Warm, dry crusty rash mid chest HEENT: Normocephalic, atraumatic.Normal conjunctiva, PERRL,no scleral icterus Cardiovascular: Regular rate and rhythm, no murmur, +S1/S2. Respiratory: Lungs are clear to auscultation, respirations unlabored, no crackles, no wheezing. Gastrointestinal: Soft, nontender. No guarding or rebound tenderness. Extremities: No edema, no cyanosis, no clubbing. 2+ radial pulse bilaterally, 2+ pedal pulse bilaterally. Neuro: No focal deficits observed. Conversant, moving all extremities. No overt cerebellar signs/incoordination. Psychiatric: Cooperative, appropriate affect. Discharge Plan Plan Patient Disposition: HOME (Self Care) Patient condition on transfer: Stable Care Plan Goals: -Follow up with Primary Care Provider within 1 week of discharge, if you do not have a primary care physician you can come see us at the [facility] by calling [phone] -Please discuss with your Primary Care Provider regarding CAT Scan findings of your lung and liver -Continue rest of medications as previously prescribed -Return to the Emergency Department or call 911 if symptoms return and/or worsen Prescriptions/Referrals Prescriptions/Med Rec: New sucralfate [Carafate] 1 gram tablet 1 g PO QID Qty: 120 0RF alum-mag hydroxide-simeth [Maalox Advanced] 200-200-20 mg/5 mL suspension 15 ml PO QID 14 Days Qty: 840 0RF Rx Instructions: administer between meals and at bedtime Continued trazodone 100 mg tablet 100 mg PO QDAY PRN (Reason: insomnia) escitalopram oxalate 10 mg tablet 10 mg PO QDAY meclizine 25 mg tablet 25 mg PO QID PRN (Reason: dizziness) acamprosate 333 mg tablet,delayed release (DR/EC) 333 mg PO QDAY Patient Comments: TAKE 2 TABLETS BY MOUTH 3 TIMES A DAY 30 DAYS folic acid-B eqgs-Y-acejr-zinc 3-70-15 mg-mcg-mg tablet 1 tab PO QDAY Qty: 30 0RF Changed pantoprazole 40 mg tablet,delayed release (DR/EC) 40 mg PO BID 30 Days Qty: 60 0RF Referrals: No Primary/Family,Physician [Primary Care Provider] - Patient/Caregiver Discharge Instructions Education Materials: Bleeding Gastrointestinal, Alcohol Addiction, Alcohol Withdrawal: What to Expect Print Language: Belgian Stand Alone Forms: Arabella Award Info., Patient Portal Info Letter Discharge Order Discharge Orders: Discharge (Routine); Ordered 03/07/25 Ordered By: Swati Francis Quality Discharge Quality Measures VTE prophylaxis
--- NOTE | 2025-03-07 18:34 | PD.IMPROG ---
Documentation for date of: 03/07/25 Subjective Subjective Interval history: Late entry for the note Hemoglobin hematocrit 8.9 and 28.9 Case discussed with internal medicine team Okay to discharge patient home on PPI for the large anastomotic site ulcer of the previous bariatric procedure Exam Vital Signs Temp Pulse Resp BP Pulse Ox O2 Del Method O2 Flow Rate 97.4 F 82 19 127/86 H 98 Room Air 2 03/07/25 12:00 03/07/25 12:00 03/07/25 12:00 03/07/25 12:00 03/07/25 12:00 03/07/25 12:00 03/07/25 04:00 Objective Labs 03/07/25 08:30 03/07/25 08:30 Labs: Laboratory Results - last 24 hr 03/07/25 08:30 WBC 5.0 RBC 3.04 L Hgb 8.9 L Hct 28.3 L MCV 93 MCH 29.3 MCHC 31.4 RDW Std Deviation 76.4 H Plt Count 218 Neut % (Auto) 61 Lymph % (Auto) 29 [place] % (Auto) 7 Eos % (Auto) 1 Baso % (Auto) 0 Neut # (Auto) 3.0 Lymph # (Auto) 1.4 [place] # (Auto) 0.4 Eos # (Auto) 0.1 Baso # (Auto) 0.0 Immature Gran # (Auto) 0.04 H Absolute Nucleated RBC 0.00 Immature Gran % 1 H Nucleated RBC % 0 Sodium 136 Potassium 3.2 L Chloride 99 Carbon Dioxide 29.4 Anion Gap 8 BUN < 5 L Creatinine 0.6 Estim Creat Clear Calc 85.2 eGFR > 60 BUN/Creatinine Ratio 8 L Glucose 238 H D Calculated Osmolality 277 Calcium 7.7 L Impressions Impression: # Large anastomotic site ulcer from a previous gastric surgery # Internal hemorrhoids Relatively stable hemoglobin hematocrit Okay to discharge patient Assessment & Plan A&P Narrative # Acute GI bleed in the form of melena # Acute posthemorrhagic anemia Plan Serial CBC Transfuse if the hemoglobin drops below 7 g Octreotide infusion at 50 mcg/h after loading dose 50 mcg IV push IV Protonix Consent obtained for fiberoptic esophagogastroduodenoscopy with possible biopsy possible therapeutic intervention under intravenous moderate sedation Will follow the patient Given my standard lecture to the patient about the virtues of complete abstinence from the alcohol # 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
[2025-03-10 14:36] LABS: Varicella-Zoster IgG Ab* 10.80 S/CO
== END 2025-03-07 12:50 | disposition home or self-care (01) | DRG 241 ==
LOC: SERX 22:22 → SERHOLD 23:32 → S3NX 03-04 05:48
PROVIDERS: Registered Nurse General Practice; Specialist; Admitting Provider Student in an Organized Health Care Education/Training Program; Emergency Provider Emergency Medicine; Visit Provider Internal Medicine
PROC: 0DJD8ZZ Inspection of Lower Intestinal Tract, Via Natural or Artificial Opening Endoscopic (ICD-10-PCS; CPT 43239; principal; 2025-03-04 16:45)
DX: K26.4 Chronic or unspecified duodenal ulcer with hemorrhage (principal); F32.A Depression, unspecified; F17.210 Nicotine dependence, cigarettes, uncomplicated; F10.239 Alcohol dependence with withdrawal, unspecified; E88.09 Other disorders of plasma-protein metabolism, not elsewhere classified; R25.1 Tremor, unspecified; D64.89 Other specified anemias; F32.9 Major depressive disorder, single episode, unspecified; K64.9 Unspecified hemorrhoids; K70.10 Alcoholic hepatitis without ascites; K72.00 Acute and subacute hepatic failure without coma; Y90.8 Blood alcohol level of 240 mg/100 ml or more; W19.XXXA Unspecified fall, initial encounter; K22.11 Ulcer of esophagus with bleeding; E53.8 Deficiency of other specified B group vitamins; E11.9 Type 2 diabetes mellitus without complications; D62 Acute posthemorrhagic anemia; E86.0 Dehydration; B01.9 Varicella without complication; F41.9 Anxiety disorder, unspecified; Z91.81 History of falling; Z90.49 Acquired absence of other specified parts of digestive tract; Z98.84 Bariatric surgery status; Z66 Do not resuscitate; Z79.899 Other long term (current) drug therapy
CPT/HCPCS: 36415; 71250; 74176; 80048; 80053; 80307; 80320; 81001; 82270; 82607; 82728; 82746; 83036; 83690; 83735; 83880; 84100; 84484; 85025; 85610; 85730; 86787; 86850; 86900; 86901; 93005; 93225; 96361; 96365; 96366; 96375; 96376; 97162; 99285; J0696; J1200; J2250; J2270; J2354; J2405; J2470; J3010; J3360; J3411; J3475; J3490; J7030; J7050; J7999; A9270; G0480

== ENCOUNTER → 2025-03-19 | Outpatient (CLI) | payer MEDICAID, SELFPAY ==
--- NOTE | 2025-03-19 10:29 | XR_ITS ---
Examination: CT abdomen, without intravenous contrast. CT abdomen, with intravenous contrast. Sagittal and coronal 2-D reconstructions. Time of exam:March 19, 2025 1103 hours Comparison March 04, 2025 INDICATIONS: CT abdomen pelvis March 04, 2025 7 mm nodule in the left lower lobe CTDI: vol (mGy) 13.2 DLP: (mGycm) 531 Technique: Multiple 3.0 mm axial noncontrast images of the abdomen have been obtained. Multiple 3.0 mm axial images post administration 60 cc Isovue-370 intravenous contrast have been obtained. Sagittal and coronal 3-D reconstructions have been obtained. Low dose protocols were performed. One or more of the following dose reduction techniques were used; automated exposure control, adjustment of the mA and/or KV according to patient size, use of iterative reconstruction technique. Findings: Fatty infiltration throughout the liver, no enhancing liver lesions Absent gallbladder Spleen not enlarged No pancreatic or adrenal mass No renal or ureteral calculi, no hydronephrosis Aorta normal size No bowel obstruction No diverticulitis IMPRESSION: Hepatomegaly, 18 cm with diffuse fatty infiltration throughout the liver No focal liver lesions No renal or ureteral calculi
== END | disposition home or self-care (01) ==
LOC: CCTX 09:54
PROVIDERS: Referring Provider Physician Assistant Medical; Visit Provider Physician Assistant Medical
DX: K76.0 Fatty (change of) liver, not elsewhere classified (principal)
CPT/HCPCS: 74170; A4649; Q9967